=== PATIENT | female | born 1935 | race American Indian/Alaskan Native ===

== ENCOUNTER 2020-07-08 10:37 | Inpatient (IN) | payer MEDICARE ==
--- NOTE | 2020-07-08 10:53 | Event Note ---
ED Screening Note Date of service: 07/08/20 Time: 10:51 ED Screening Note: 85-year-old female presents with strokelike symptoms that began 2 days ago. This initial assessment/diagnostic orders/clinical plan/treatment(s) is/are subject to change based on patients health status, clinical progression and re- assessment by fellow clinical providers in the ED. Further treatment and workup at subsequent clinical providers discretion. Patient/guardian urged not to elope from the ED as their condition may be serious if not clinically assessed and managed. Initial orders include: Protocol ordered. Patient for main ED eval
--- NOTE | 2020-07-08 11:38 | Cat Scan Report ---
CT HEAD WITHOUT CONTRAST INDICATION / CLINICAL INFORMATION: Stroke symptoms. TECHNIQUE: Axial imaging performed from the skull apex through the skull base without the use of cont rast. Sagittal and coronal reformatted images. All CT scans at this location are performed using CT dose reduction for ALARA by means of automated exposure control. COMPARISON: None available. FINDINGS: CEREBRAL PARENCHYMA: Severe hypoattenuation is present throughout the white matter which is a nonspec ific finding but most likely related to chronic microvascular ischemic disease. Chronic appearing cor tical infarcts are identified in the left posterior watershed region and left lateral temporal lobe. 5 mm chronic lacunar infarct is identified in the left thalamus. No convincing acute parenchymal abno rmality is appreciated. HEMORRHAGE: None. EXTRA-AXIAL SPACES: Normal in size and morphology for the patient's age. VENTRICULAR SYSTEM: Normal in size and morphology for the patient's age. MIDLINE SHIFT OR HERNIATION: None. CEREBELLUM / BRAINSTEM: No significant abnormality. CALVARIUM: No significant abnormality. ORBITS: Normal as visualized. PARANASAL SINUSES / MASTOID AIR CELLS: Normal as visualized. SOFT TISSUES of HEAD: No significant abnormality. ADDITIONAL FINDINGS: None. IMPRESSION: Advanced chronic white matter changes are identified. Chronic appearing ischemic insults are identifi ed in the left posterior watershed region and left lateral temporal lobe. No definite acute parenchym al findings are appreciated although this may be limited with this degree of chronic white matter di nges. If CVA is highly suspected, further evaluation with MRI is recommended. Signer Name: Jeb Conde Jr, MD Signed: 07/08/2020 11:34 AM Workstation Name: [id number]
[2020-07-08 11:49] LABS: INR 1.02 (0.87-1.13)
[2020-07-08 11:50] LABS: Partial Thromboplastin Time 27.5 Sec. (24.2-36.6); Thrombin Time 17.1 Sec. (15.1-19.6)
[2020-07-08 11:54] LABS: Creatine Kinase MB 9.3 ng/mL (0.0-4.0)
[2020-07-08 11:57] LABS: Basophils # (Auto) 0.1 K/mm3 (0.0-0.1); Eosinophils % (Auto) 0.2 % (0.0-4.3); Hematocrit 46.1 % (30.3-42.9); Hemoglobin 15.5 gm/dl (10.1-14.3); Lymphocytes # (Auto) 1.6 K/mm3 (1.2-5.4); Lymphocytes % (Auto) 22.4 % (13.4-35.0); Mean Corpuscular HGB Conc 34 % (30-34); Mean Corpuscular Volume 88 fl (79-97); Monocytes # (Auto) 0.4 K/mm3 (0.0-0.8); Monocytes % (Auto) 6.3 % (0.0-7.3); Platelet Count 121 K/mm3 (140-440); Red Blood Count 5.24 M/mm3 (3.65-5.03); Red Cell Distribution Width 14.8 % (13.2-15.2)
[2020-07-08 11:58] LABS: Basophils % (Auto) 1.4 % (0.0-1.8)
[2020-07-08] MEDS ORDERED: ASPIRIN 325 MG TAB PO ONE (13:33)
--- NOTE | 2020-07-08 13:46 | Emergency Department Report ---
Blank Doc - Documentation Documentation: [facility] Consult Note # Demographics Consult Type: Acute Stroke Level 1 (0-4.5 hrs) Patient Location: Emergency Room First Name: Kenyatta Last Name: Herve Date of : 1935 Age: 84 Gender: Female Time of Initial Page ( Time): 07/08/2020, 13:33 Time of Return Call ( Time): 07/08/2020, 13:35 # HPI History: 84yo F presents with aphasia for at least a few days, unclear onset time exactly due to aphasia, possibly tuesday onset day. # Scores Time of exam and NIHSS ( Time): 07/08/2020, 13:38 Level of Consciousness 1a: [0] = Alert; keenly responsive LOC Questions 1b: [2] = Answers neither correctly LOC Commands 1c: [0] = Performs both tasks correctly Best Gaze 2: [0] = Normal Visual 3: [0] = No visual loss Facial Palsy 4: [1] = Minor paralysis Motor Arm Left 5a: [0] = No drift Motor Arm Right 5b: [1] = Drift Motor Leg Left 6a: [0] = No drift Motor Leg Right 6b: [1] = Drift Limb Ataxia 7: [0] = Absent Sensory 8: [0] = Normal Best Language 9: [2] = Severe aphasia Dysarthria 10: [1] = [id number]-dx-hsebnxhv dysarthria Extinction and Inattention 11: [0] = No abnormality NIHSS Total: 8 # Plan Thrombolytic/Intervention: NOT IV Thrombolytic or IA Intervention Thrombolytic Exclusion: > 4.5 hours Intraarterial Exclusion: clinically consistent with small vessel disease Blood Pressure Management: labetolol Target Blood Pressure: SBP < 220, SBP > 100 Labs: hemoglobin A1c, lipid panel Imaging: (urgency: routine admission): CT Angiogram Head and CT Angiogram Neck, MRI Brain without contrast Diagnostic Test: echo without bubble study Therapy/Evaluation: NPO until swallow evaluation, PT/OT evaluation, speech/swallow consultation Medication: aspirin 81 mg daily, start statin with goal of LDL < 70 DVT Prophylaxis: SCD Other: LDL < 70, If patient has any neurological deterioration please call me back immediately, permissive hypertension, telemetry monitoring, I have discussed my recommendations with the referring provider Disposition: admit # Logistics Telemedicine: Interactive 2 way audio and visual telecommunication technology was utilized during this visit
[2020-07-08] MEDS ORDERED: SODIUM CHLORIDE 0.9% 1000 ML 1,000 ML IV ONE (14:21)
--- NOTE | 2020-07-08 14:24 | Emergency Department Report ---
ED Neuro Deficit HPI - General Chief Complaint: Neuro Symptoms/Deficit Stated Complaint: NUMBNESS ON THE RIGHT Time Seen by Provider: 07/08/20 13:31 Source: patient, family Mode of arrival: Wheelchair Limitations: Physical Limitation - History of Present Illness Initial Comments: Patient is 84-year-old F Montene[place] female with a past medical history of hy pertension who is presenting with right-sided weakness and difficulty speaking. Because of the patient's expressive aphasia is difficult to get a accurate time of when her symptoms started. Possible that started yesterday but also could have started 3 days ago. Patient states that she was on the phone with a friend and when the symptoms started. She cannot give a good reason why she is just waiting to come to the emergency department. States she hopes that her symptoms get better. Patient states she is having weakness of the right upper extremity. She is states she feels as though she knows what she wants to say but certain words are not coming out properly. She is able to gesture that she is having a hard time given that the date as well as saying her name and what day of the week it is. Patient is trying to compensate by using other words to replace the words she actually would like to say. She denies any headache chest pain shortness of breath fevers chills cough cold or congestion. - Related Data Allergies/Adverse Reactions: Allergies Allergy/AdvReac Type Severity Reaction Status Date / Time No Known Allergies Allergy Unverified 07/08/20 10:48 ED Review of Systems ROS: Stated complaint: NUMBNESS ON THE RIGHT Other details as noted in HPI Comment: All other systems reviewed and negative ED Past Medical Hx - Past Medical History Previous Medical History?: Yes Hx Hypertension: Yes - Family History Family history: no significant - Social History Substance Use Type: None ED Neuro Physical Exam - General Limitations: Physical Limitation General appearance: alert, in no apparent distress Suspected Stroke: Yes - Head Head exam: Present: atraumatic, normocephalic - Eye Eye exam: Present: normal appearance - ENT ENT exam: Present: mucous membranes moist - Neck Neck exam: Present: normal inspection - Respiratory Respiratory exam: Present: normal lung sounds bilaterally. Absent: respiratory distress, wheezes, rales, rhonchi - Cardiovascular Cardiovascular Exam: Present: regular rate, normal rhythm, normal heart sounds. Absent: systolic murmur, diastolic murmur, rubs, gallop - GI/Abdominal GI/Abdominal exam: Present: soft, normal bowel sounds. Absent: distended, tenderness, guarding, rebound - Extremities Exam Extremities exam: Present: normal inspection - Back Exam Back exam: Present: normal inspection - Neurological Exam Neurological exam: Present: alert, oriented X3, motor sensory deficit (RUE) - NIHSS Assessment Interval: Baseline 1a. Level of Consciousness: alert/keenly responsive 1b. LOC Questions: answers no questions correctly 1c. LOC Commands: performs tasks correctly 2. Best Gaze: normal 3. Visual: no visual loss 4. Facial Palsy: minor paralysis 5b. Motor Arm Right: drift 5a. Motor Arm Left: no drift 6a. Motor Leg Left: no drift 6b. Motor Leg Right: drift 7. Limb Ataxia: absent 8. Sensory: normal 9. Best Language: severe aphasia 10. Dysarthria: mild/moderate dysarthria 11. Extinction/Inattention: no abnormality Total Score: 8 Stroke Severity: Moderate Stroke - Psychiatric Psychiatric exam: Present: normal affect, normal mood - Skin Skin exam: Present: warm, dry, intact, normal color. Absent: rash - Other Other exam information: # Scores Time of exam and NIHSS (Eastern Time): 07/08/2020, 13:38 Level of Consciousness 1a: [0] = Alert; keenly responsive LOC Questions 1b: [2] = Answers neither correctly LOC Commands 1c: [0] = Performs both tasks correctly Best Gaze 2: [0] = Normal Visual 3: [0] = No visual loss Facial Palsy 4: [1] = Minor paralysis Motor Arm Left 5a: [0] = No drift Motor Arm Right 5b: [1] = Drift Motor Leg Left 6a: [0] = No drift Motor Leg Right 6b: [1] = Drift Limb Ataxia 7: [0] = Absent Sensory 8: [0] = Normal Best Language 9: [2] = Severe aphasia Dysarthria 10: [1] = Yhja-xi-tgwndvos dysarthria Extinction and Inattention 11: [0] = No abnormality NIHSS Total: 8 ED Course - Reevaluation(s) Reevaluation #1: 07/08/20 14:25 Because of the time discrepancy of when the patient symptoms started we erred on the side of caution and had our telemetry neurology group see the patient. Please see their note. - Lab Data Result diagrams: 07/08/20 10:58 07/08/20 13:44 Lab Results 07/08/20 07/08/20 07/08/20 Range/Units 10:58 10:58 10:58 WBC 7.0 (4.5-11.0) K/mm3 RBC 5.24 H (3.65-5.03) M/mm3 Hgb 15.5 H (10.1-14.3) gm/dl Hct 46.1 H (30.3-42.9) % MCV 88 (79-97) fl MCH 30 (28-32) pg MCHC 34 (30-34) % RDW 14.8 (13.2-15.2) % Plt Count 121 L (140-440) K/mm3 Lymph % (Auto) 22.4 (13.4-35.0) % [place] % (Auto) 6.3 (0.0-7.3) % Eos % (Auto) 0.2 (0.0-4.3) % Baso % (Auto) 1.4 (0.0-1.8) % Lymph # (Auto) 1.6 (1.2-5.4) K/mm3 [place] # (Auto) 0.4 (0.0-0.8) K/mm3 Eos # (Auto) 0.0 (0.0-0.4) K/mm3 Baso # (Auto) 0.1 (0.0-0.1) K/mm3 Seg Neutrophils % 69.7 (40.0-70.0) % Seg Neutrophils # 4.9 (1.8-7.7) K/mm3 PT 13.3 (12.2-14.9) Sec. INR 1.02 (0.87-1.13) APTT 27.5 (24.2-36.6) Sec. Thrombin Time 17.1 (15.1-19.6) Sec. Sodium (137-145) mmol/L Potassium (3.6-5.0) mmol/L Chloride (98-107) mmol/L Carbon Dioxide (22-30) mmol/L Anion Gap mmol/L BUN (7-17) mg/dL Creatinine (0.6-1.2) mg/dL Estimated GFR ml/min BUN/Creatinine Ratio % Glucose (65-100) mg/dL Calcium (8.4-10.2) mg/dL Total Bilirubin (0.1-1.2) mg/dL AST (5-40) units/L ALT (7-56) units/L Alkaline Phosphatase (35-129) units/L Total Creatine Kinase 1353 H (30-135) units/L CK-MB (CK-2) 9.3 H (0.0-4.0) ng/mL CK-MB (CK-2) Rel Index 0.6 (0-4) Troponin T < 0.010 (0.00-0.029) ng/mL Total Protein (6.3-8.2) g/dL Albumin (3.9-5) g/dL Albumin/Globulin Ratio % /18/ Range/Units 13:44 WBC (4.5-11.0) K/mm3 RBC (3.65-5.03) M/mm3 Hgb (10.1-14.3) gm/dl Hct (30.3-42.9) % MCV (79-97) fl MCH (28-32) pg MCHC (30-34) % RDW (13.2-15.2) % Plt Count (140-440) K/mm3 Lymph % (Auto) (13.4-35.0) % [place] % (Auto) (0.0-7.3) % Eos % (Auto) (0.0-4.3) % Baso % (Auto) (0.0-1.8) % Lymph # (Auto) (1.2-5.4) K/mm3 [place] # (Auto) (0.0-0.8) K/mm3 Eos # (Auto) (0.0-0.4) K/mm3 Baso # (Auto) (0.0-0.1) K/mm3 Seg Neutrophils % (40.0-70.0) % Seg Neutrophils # (1.8-7.7) K/mm3 PT (12.2-14.9) Sec. INR (0.87-1.13) APTT (24.2-36.6) Sec. Thrombin Time (15.1-19.6) Sec. Sodium 139 (137-145) mmol/L Potassium 3.7 (3.6-5.0) mmol/L Chloride 102.3 (98-107) mmol/L Carbon Dioxide 22 (22-30) mmol/L Anion Gap 18 mmol/L BUN 18 H (7-17) mg/dL Creatinine 1.2 (0.6-1.2) mg/dL Estimated GFR 43 ml/min BUN/Creatinine Ratio 15 % Glucose 90 (65-100) mg/dL Calcium 9.4 (8.4-10.2) mg/dL Total Bilirubin 0.40 (0.1-1.2) mg/dL AST 49 H (5-40) units/L ALT 13 (7-56) units/L Alkaline Phosphatase 94 (35-129) units/L Total Creatine Kinase (30-135) units/L CK-MB (CK-2) (0.0-4.0) ng/mL CK-MB (CK-2) Rel Index (0-4) Troponin T (0.00-0.029) ng/mL Total Protein 7.4 (6.3-8.2) g/dL Albumin 4.2 (3.9-5) g/dL Albumin/Globulin Ratio 1.3 % - Radiology Data [facility] [address] [place] [address] Cat Scan Report Signed Patient: CLIFF MATHEW MR#: [id number] : 1935 Acct:[id number] Age/Sex: 84 / F ADM Date: 07/08/20 Loc: ED Attending Dr: Ordering Physician: LUZ LOPEZ Date of Service: 07/08/20 Procedure(s): CT head/brain wo con Accession Number(s): [id number] cc: LUZ LOPEZ CT HEAD WITHOUT CONTRAST INDICATION / CLINICAL INFORMATION: Stroke symptoms. TECHNIQUE: Axial imaging performed from the skull apex through the skull base without the use of contrast. Sagittal and coronal reformatted images. All CT scans at this location are performed using CT dose reduction for ALARA by means of automated exposure control. COMPARISON: None available. FINDINGS: CEREBRAL PARENCHYMA: Severe hypoattenuation is present throughout the white matter which is a nonspecific finding but most likely related to chronic microvascular ischemic disease. Chronic appearing cortical infarcts are identified in the left posterior watershed region and left lateral temporal lobe. 5 mm chronic lacunar infarct is identified in the left thalamus. No convincing acute parenchymal abnormality is appreciated. HEMORRHAGE: None. EXTRA-AXIAL SPACES: Normal in size and morphology for the patient's age. VENTRICULAR SYSTEM: Normal in size and morphology for the patient's age. MIDLINE SHIFT OR HERNIATION: None. CEREBELLUM / BRAINSTEM: No significant abnormality. CALVARIUM: No significant abnormality. ORBITS: Normal as visualized. PARANASAL SINUSES / MASTOID AIR CELLS: Normal as visualized. SOFT TISSUES of HEAD: No significant abnormality. ADDITIONAL FINDINGS: None. IMPRESSION: Advanced chronic white matter changes are identified. Chronic appearing ischemic insults are identified in the left posterior watershed region and left lateral temporal lobe. No definite acute parenchymal findings are appreciated although this may be limited with this degree of chronic white matter changes. If CVA is highly suspected, further evaluation with MRI is recommended. Signer Name: Neli Flores Jr, MD Signed: 07/08/2020 11:34 AM Workstation Name: [id number] Transcribed By: TTR Dictated By: NELI FLORES JR, MD Electronically Authenticated By: NELI FLORES JR, MD Signed Date/Time: 07/08/20 1134 - Medical Decision Making Patient is 84-year-old F [place] female who is presenting with expressive aphasia and right arm weakness. NIH of 8. Patient to be admitted to the hospital service for further stroke management. Critical care attestation.: If time is entered above; I have spent that time in minutes in the direct care of this critically ill patient, excluding procedure time. ED Disposition Clinical Impression: CVA (cerebral vascular accident), Aphasia Disposition: OP ADMIT IP TO THIS HOSP Is pt being admited?: Yes Does the pt Need Aspirin: No Condition: Stable Time of Disposition: 15:00
[2020-07-08 14:35] LABS: Albumin 4.2 g/dL (3.9-5); Calcium 9.4 mg/dL (8.4-10.2)
[2020-07-08] MEDS ORDERED: hydrALAZINE 20 MG/1 ML INJ ONE (17:04)
[2020-07-08] MEDS ORDERED: hydrALAZINE 20 MG/1 ML INJ IV ONE (17:06)
[2020-07-08] MEDS ORDERED: ONDANSETRON 4 MG/2 ML INJ IV PRN (22:54)
[2020-07-08] MEDS ORDERED: HYDROmorphone 1 MG/1 ML INJ IV PRN (22:54)
[2020-07-08] MEDS ORDERED: ACETAMINOPHEN 325 MG TAB PO PRN (22:54)
[2020-07-08] MEDS ORDERED: oxyCODONE /ACETAMINOPHEN 5-325MG TAB PO PRN (22:54)
[2020-07-08] MEDS ORDERED: SODIUM CHLORIDE 0.9% 1000 ML 1,000 ML IV SCH (23:00)
[2020-07-08] MEDS: carvediloL 12.5 MG TAB PO SCH (23:16)
[2020-07-09 06:34] LABS: Basophils % (Auto) 0.5 % (0.0-1.8); Eosinophils # (Auto) 0.1 K/mm3 (0.0-0.4); Eosinophils % (Auto) 1.4 % (0.0-4.3); Hematocrit 42.6 % (30.3-42.9); Hemoglobin 14.2 gm/dl (10.1-14.3); Lymphocytes % (Auto) 31.3 % (13.4-35.0); Mean Corpuscular HGB Conc 33 % (30-34); Mean Corpuscular Volume 88 fl (79-97); Monocytes # (Auto) 0.5 K/mm3 (0.0-0.8); Monocytes % (Auto) 8.1 % (0.0-7.3); Platelet Count 110 K/mm3 (140-440); Red Blood Count 4.84 M/mm3 (3.65-5.03); Red Cell Distribution Width 14.7 % (13.2-15.2)
[2020-07-09 06:43] LABS: Albumin 3.7 g/dL (3.9-5); Calcium 8.7 mg/dL (8.4-10.2); Chol/HDL Ratio 3.06 %
--- NOTE | 2020-07-09 07:34 | History and Physical Report ---
History of Present Illness Date of examination: 07/08/20 Date of admission: 07/08/20 15:02 Chief complaint: Slurred speech and right upper extremity weakness for 2 to 3 days History of present illness: 84-year-old female with past medical history of hypertension comes in for difficulty talking and right upper extremity weakness. Patient unable to tell the exact timeline. Patient states her difficulty talking is improved. Right upper extremity weakness persists.. Patient says the right lower extremity strength is normal. And patient is able to walk. No syncope. No seizures. No past cerebrovascular accidents. No TIAs in the past. No chest pain. Patient has a history of hypertension and hyperlipidemia and asthma. No fever or chills. No recent exposure to coronavirus. Patient states the symptoms were started 48 to 72 hours before. - Past Medical History Previous Medical History?: Yes --Hypertension: Yes --past surgical history N/A - Family History Family history: no significant - Social History Substance Use Type: None Review of Systems ROS: Constitutional no weight loss or weight gain no fever or chills HEENT no sore throat no post nasal drip no diplopia Neck no neck stiffness no lymph gland enlargement Chest and lungs no shortness of breath cough or wheezing CVS no chest pain no diaphoresis no palpitations GI no nausea no vomiting no diarrhea Genitourinary system no dysuria no flank pain Musculoskeletal system no muscle pains no joint pains [employer] dysarthria and right upper extremity weakness Skin no rash no itching Psychiatric no depression no homicidal or suicidal tendencies Hematologic no lymphedema or bruising Endocrine no polydipsia no polyuria no cold intolerance no heat intolerance Medications and Allergies Allergies Allergy/AdvReac Type Severity Reaction Status Date / Time No Known Allergies Allergy Unverified 07/08/20 10:48 Home Medications Medication Instructions Recorded Confirmed Last Taken Type AtorvaSTATin [Lipitor] 20 mg PO QHS 07/08/20 07/08/20 Unknown History Fluticasone Propionate [Flovent 50 mcg IH QDAY 07/08/20 07/08/20 Unknown History Diskus] Lisinopril/Hydrochlorothiazide 1 tab PO QDAY 07/08/20 07/08/20 Unknown History [Zestoretic 20-25 mg] carvediloL [Coreg] 12.5 mg PO BID 07/08/20 07/08/20 Unknown History Active Meds: Active Medications Acetaminophen (Acetaminophen 325 Mg Tab) 650 mg PO Q4H PRN PRN Reason: Pain MILD(1-3)/Fever >100.5/WHITESIDE Arformoterol Tartrate (Arformoterol 15 Mcg/2 Ml Nebu) 15 mcg IH Q12HRT [facility] Aspirin (Aspirin 325 Mg Tab) 325 mg PO QDAY [facility] Atorvastatin Calcium (Atorvastatin 40 Mg Tab) 40 mg PO QHS [facility] Budesonide (Budesonide 0.5 Mg/2 Ml Nebu) 0.5 mg IH Q12HRT [facility] Carvedilol (Carvedilol 12.5 Mg Tab) 12.5 mg PO BID [facility] Last Admin: 07/08/20 23:16 Dose: 12.5 mg Documented by: Famotidine (Famotidine 20 Mg/2 Ml Inj) 20 mg IV BID [facility] Hydrochlorothiazide (Hydrochlorothiazide 25 Mg Tab) 25 mg PO QDAY [facility] Hydromorphone HCl (Hydromorphone 1 Mg/1 Ml Inj) 0.5 mg IV Q3H PRN PRN Reason: Pain , Severe (7-10) Sodium Chloride (Nacl 0.9% 1000 Ml) 1,000 mls @ 100 mls/hr IV DIRECT [facility] Stop: 07/09/20 11:00 Last Admin: 07/08/20 23:17 Dose: 100 mls/hr Documented by: Lisinopril (Lisinopril 20 Mg Tab) 20 mg PO QDAY [facility] Ondansetron HCl (Ondansetron 4 Mg/2 Ml Inj) 4 mg IV Q8H PRN PRN Reason: Nausea And Vomiting Oxycodone/Acetaminophen (Oxycodone /Acetaminophen 5-325mg Tab) 1 tab PO Q6H PRN PRN Reason: Pain, Moderate (4-6) Sodium Chloride (Sodium Chloride 0.9% 10 Ml Flush Syringe) 10 ml IV BID [facility] Last Admin: 07/08/20 23:17 Dose: 10 ml Documented by: Sodium Chloride (Sodium Chloride 0.9% 10 Ml Flush Syringe) 10 ml IV PRN PRN PRN Reason: LINE FLUSH Exam - Constitutional Vitals: Temp Pulse Resp BP Pulse Ox 97.8 F 73 18 163/85 95 07/09/20 04:33 07/09/20 04:33 07/09/20 04:33 07/09/20 04:33 07/09/20 04:33 General appearance: Present: no acute distress, well-nourished - EENT Eyes: Present: PERRL ENT: hearing intact, clear oral mucosa - Neck Neck: Present: supple, normal ROM - Respiratory Respiratory effort: normal Respiratory: bilateral: CTA - Cardiovascular Heart rate: 78 Rhythm: regular Heart Sounds: Present: S1 & S2. Absent: rub, click - Extremities Extremities: no ischemia, pulses intact, pulses symmetrical, No edema Peripheral Pulses: within normal limits - Abdominal General gastrointestinal: Present: soft, non-tender, non-distended, normal bowel sounds Female genitourinary: Present: normal - Integumentary Integumentary: Present: clear, warm, dry - Musculoskeletal Musculoskeletal: right sided weakness - Psychiatric Psychiatric: appropriate mood/affect, intact judgment & insight - Neurologic Neurologic: CNII-XII intact, focal deficits (Right upper extremity weakness), moves all extremities, other (Dysarthria) HEART Score - HEART Score History: Slightly suspicious Age: > 65 Risk factors: 1-2 risk factors Troponin: Troponin T < 0.010 ng/mL (0.00-0.029) 07/08/20 10:58 Troponin: < normal limit - Critical Actions Critical Actions: 0-3 pts:0.9-1.7%risk of adverse cardiac event.Candidate for discharge Results - Labs CBC & Chem 7: 07/09/20 05:19 07/09/20 05:19 Labs: Laboratory Last Values WBC 6.5 K/mm3 (4.5-11.0) 07/09/20 05:19 RBC 4.84 M/mm3 (3.65-5.03) 07/09/20 05:19 Hgb 14.2 gm/dl (10.1-14.3) 07/09/20 05:19 Hct 42.6 % (30.3-42.9) 07/09/20 05:19 MCV 88 fl (79-97) 07/09/20 05:19 MCH 29 pg (28-32) 07/09/20 05:19 MCHC 33 % (30-34) 07/09/20 05:19 RDW 14.7 % (13.2-15.2) 07/09/20 05:19 Plt Count 110 K/mm3 (140-440) L 07/09/20 05:19 Lymph % (Auto) 31.3 % (13.4-35.0) 07/09/20 05:19 Dickenson % (Auto) 8.1 % (0.0-7.3) H 07/09/20 05:19 Eos % (Auto) 1.4 % (0.0-4.3) 07/09/20 05:19 Baso % (Auto) 0.5 % (0.0-1.8) 07/09/20 05:19 Lymph # (Auto) 2.0 K/mm3 (1.2-5.4) 07/09/20 05:19 Dickenson # (Auto) 0.5 K/mm3 (0.0-0.8) 07/09/20 05:19 Eos # (Auto) 0.1 K/mm3 (0.0-0.4) 07/09/20 05:19 Baso # (Auto) 0.0 K/mm3 (0.0-0.1) 07/09/20 05:19 Seg Neutrophils % 58.7 % (40.0-70.0) 07/09/20 05:19 Seg Neutrophils # 3.8 K/mm3 (1.8-7.7) 07/09/20 05:19 PT 13.3 Sec. (12.2-14.9) 07/08/20 10:58 INR 1.02 (0.87-1.13) 07/08/20 10:58 APTT 27.5 Sec. (24.2-36.6) 07/08/20 10:58 Thrombin Time 17.1 Sec. (15.1-19.6) 07/08/20 10:58 Sodium 141 mmol/L (137-145) 07/09/20 05:19 Potassium 3.8 mmol/L (3.6-5.0) 07/09/20 05:19 Chloride 107.6 mmol/L (98-107) H 07/09/20 05:19 Carbon Dioxide 25 mmol/L (22-30) 07/09/20 05:19 Anion Gap 12 mmol/L 07/09/20 05:19 BUN 18 mg/dL (7-17) H 07/09/20 05:19 Creatinine 1.2 mg/dL (0.6-1.2) 07/09/20 05:19 Estimated GFR 52 ml/min 07/09/20 05:19 BUN/Creatinine Ratio 15 % 07/09/20 05:19 Glucose 101 mg/dL (65-100) H 07/09/20 05:19 Hemoglobin A1c 5.7 % (4-6) 07/09/20 05:19 Calcium 8.7 mg/dL (8.4-10.2) 07/09/20 05:19 Total Bilirubin 0.40 mg/dL (0.1-1.2) 07/09/20 05:19 AST 36 units/L (5-40) 07/09/20 05:19 ALT 10 units/L (7-56) 07/09/20 05:19 Alkaline Phosphatase 79 units/L (35-129) 07/09/20 05:19 Total Creatine Kinase 1353 units/L (30-135) H 07/08/20 10:58 CK-MB (CK-2) 9.3 ng/mL (0.0-4.0) H 07/08/20 10:58 CK-MB (CK-2) Rel Index 0.6 (0-4) 07/08/20 10:58 Troponin T < 0.010 ng/mL (0.00-0.029) 07/08/20 10:58 Total Protein 6.2 g/dL (6.3-8.2) L 07/09/20 05:19 Albumin 3.7 g/dL (3.9-5) L 07/09/20 05:19 Albumin/Globulin Ratio 1.5 % 07/09/20 05:19 Triglycerides 64 mg/dL (2-149) 07/09/20 05:19 Cholesterol 178 mg/dL (50-199) 07/09/20 05:19 LDL Cholesterol Direct 107 mg/dL (50-130) 07/09/20 05:19 HDL Cholesterol 58 mg/dL (40-59) 07/09/20 05:19 Cholesterol/HDL Ratio 3.06 % 07/09/20 05:19 - Imaging and Cardiology EKG: report reviewed (Sinus rhythm no acute ST-T wave changes) CT Scan - head: report reviewed Imaging and Cardiology: Head CT Advanced chronic white matter changes are identified Chronic appearing ischemic insults are identified in the left posterior wate rshed region and left lateral temporal lobe No definite acute parenchymal findings are appreciated although this may be limited with his degree of chronic white matter changes. If CVA is highly suspected further evaluation with MRI is recommended. Shin/IV: Voiding Method Toilet Assessment and Plan Advance Directives: Yes (Full code) VTE prophylaxis?: Chemical Plan of care discussed with patient/family: Yes - Patient Problems (1) CVA (cerebral vascular accident) Current Visit: Yes Status: Acute Qualifiers: Laterality of affected vessel: left Plan to address problem: CVA work-up MRI brain and carotid duplex scan and echocardiogram requested Neuro consult requested PT/OT requested (2) Hypertension Current Visit: Yes Status: Chronic Qualifiers: Hypertension type: essential hypertension Qualified Code(s): I10 - Essential (primary) hypertension Plan to address problem: Continue antihypertensives and adjust medications as necessary (3) Hyperlipidemia Current Visit: Yes Status: Chronic Qualifiers: Hyperlipidemia type: mixed hyperlipidemia Qualified Code(s): E78.2 - Mixed hyperlipidemia Plan to address problem: Patient initiated on high intensity statins-Lipitor 40 mg once a day (4) Asthma Current Visit: Yes Status: Inactive Plan to address problem: Albuterol as needed (5) Morbid obesity Current Visit: Yes Status: Chronic Plan to address problem: Needs exercise and follow-up with bariatric surgery (6) DVT prophylaxis Current Visit: Yes Status: Acute Plan to address problem: On heparin and GI prophylaxis (7) Advance care planning Current Visit: Yes Status: Acute Plan to address problem: Discussed advanced care planning Patient is full code
--- NOTE | 2020-07-09 09:52 | Magnetic Resonance Report ---
MR brain wo con INDICATION / CLINICAL INFORMATION: Stroke. TECHNIQUE: Multiplanar, multisequence MR images of the brain were obtained. COMPARISON: 07/08/2020 CT head FINDINGS: INTRACRANIAL: There is restricted diffusion seen within the left frontal, parietal, and left lateral temporal lobe. No hemorrhage. No hemorrhage. Ventricular caliber is normal. No extra-axial collection . No mass. No herniation. Major intracranial vascular flow voids are preserved. Periventricular and centrum semiovale T2 white matter hyperintensities most consistent with sequela of chronic microvascu lar disease. ORBITS: No significant abnormality of visualized orbits. SINUSES / MASTOIDS: No significant abnormality of visualized sinuses and mastoid air cells. ADDITIONAL FINDINGS: None. IMPRESSION: 1. Acute infarction in the left middle cerebral artery territory. Signer Name: Christian Marcus MD Signed: 07/09/2020 9:48 AM Workstation Name: [id number]
[2020-07-09] MEDS ORDERED: NON-FORMULARY EACH (Fluticasone Propionate [Flovent Diskus] 50 MCG Blst.W.Dev) IH SCH (10:00)
[2020-07-09] MEDS: ARFORMOTEROL 15 MCG/2 ML NEBU IH SCH ×2 (10:10→20:43)
[2020-07-09] MEDS: BUDESONIDE 0.5 MG/2 ML NEBU IH SCH ×2 (10:10→20:43)
--- NOTE | 2020-07-09 10:50 | Electrocardiograph Report ---
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
[2020-07-09] MEDS: LISINOPRIL 20 MG TAB PO SCH (11:16)
[2020-07-09] MEDS: ASPIRIN 325 MG TAB PO SCH (11:16)
[2020-07-09] MEDS: carvediloL 12.5 MG TAB PO SCH ×2 (11:16→21:30)
[2020-07-09] MEDS: hydroCHLOROthiazide 25 MG TAB PO SCH (11:16)
[2020-07-09] MEDS: FAMOTIDINE 20 MG/2 ML INJ IV SCH ×2 (11:16→21:31)
--- NOTE | 2020-07-09 11:49 | Vascular Lab Report ---
DUPLEX DOPPLER ULTRASOUND CAROTID, BILATERAL INDICATION / CLINICAL INFORMATION: stroke. COMPARISON: None available. FINDINGS: Tortuous ICAs bilateral. RIGHT CAROTID: Mild atherosclerotic disease is present within the distal CCA and bulb, extending into proximal ICA. - PLAQUE ESTIMATE (%): < 50% - CCA velocity: 83 cm/sec. - ICA peak systolic velocity: 98 cm/sec. - ICA/CCA PSV Ratio: 1.2 Right Vertebral Artery: Antegrade flow. LEFT CAROTID: Moderate atherosclerotic disease is present within the bulb. Moderate to severe disease is present within the ICA. - PLAQUE ESTIMATE (%): > 70% - CCA velocity: 61 cm/sec. - ICA peak systolic velocity: 560 cm/sec. - ICA/CCA PSV Ratio: 9.2 Left Vertebral Artery: Antegrade flow. IMPRESSION: 1. Right Internal Carotid Artery: Less than 50% diameter stenosis. 2. Left Internal Carotid Artery: >70% diameter stenosis but less than total occlusion. Results were communicated to Kassy CHO) by the technologist at 10:48. Velocity criteria are extrapolated from diameter data as defined by the Society of Radiologists [facility] Consensus Conference, Radiology 2003; 229;340-346. NO STENOSIS (NORMAL) - Plaque = none; ICA PSV < 125 cm/sec; ICA/CCA PSV Ratio < 2.0 <50% STENOSIS - Plaque < 50%; ICA PSV < 125 cm/sec; ICA/CCA PSV Ratio < 2.0 50-69% STENOSIS - Plaque > 50%; ICA PSV = 125-230 cm/sec; ICA/CCA PSV Ratio = 2.0-4.0 >70% BUT <100% STENOSIS - Plaque > 50%; ICA PSV > 230 cm/sec; ICA/CCA PSV Ratio > 4.0 NEAR OCCLUSION - Plaque = visible lumen; ICA PSV = high/low/none; ICA/CCA PSV Ratio = variable TOTAL OCCLUSION - Plaque = no lumen; ICA PSV = none; ICA/CCA PSV Ratio = N/A Scribed by: Mariluz De Santiago RDMS, SHEYLAT Scribed: 07/09/2020 10:40 AM Signer Name: Tucker Roque MD Signed: 07/09/2020 11:45 AM Workstation Name: [id number]
--- NOTE | 2020-07-09 12:35 | Consultation ---
History of Present Illness Consult date: 07/09/20 Reason for Consult: CVA Chief complaint: History of present illness: 84-year-old female with past medical history of hypertension comes in for difficulty talking and right upper extremity weakness. Patient unable to tell the exact timeline. Patient states her difficulty talking is improved. Right upper extremity weakness persists.. Patient says the right lower extremity strength is normal. And patient is able to walk. No syncope. No seizures. No past cerebrovascular accidents. No TIAs in the past. No chest pain. Patient has a history of hypertension and hyperlipidemia and asthma. No fever or chills. No recent exposure to coronavirus. Patient states the symptoms were started 48 to 72 hours before. > ? per patient no improvement . Medications and Allergies Allergies Allergy/AdvReac Type Severity Reaction Status Date / Time No Known Allergies Allergy Unverified 07/08/20 10:48 Home Medications Medication Instructions Recorded Confirmed Last Taken Type AtorvaSTATin [Lipitor] 20 mg PO QHS 07/08/20 07/08/20 Unknown History Fluticasone Propionate [Flovent 50 mcg IH QDAY 07/08/20 07/08/20 Unknown History Diskus] Lisinopril/Hydrochlorothiazide 1 tab PO QDAY 07/08/20 07/08/20 Unknown History [Zestoretic 20-25 mg] carvediloL [Coreg] 12.5 mg PO BID 07/08/20 07/08/20 Unknown History Active Meds: Active Medications Acetaminophen (Acetaminophen 325 Mg Tab) 650 mg PO Q4H PRN PRN Reason: Pain MILD(1-3)/Fever >100.5/WHITESIDE Arformoterol Tartrate (Arformoterol 15 Mcg/2 Ml Nebu) 15 mcg IH Q12HRT [facility] Last Admin: 07/09/20 10:10 Dose: Not Given Documented by: Aspirin (Aspirin 325 Mg Tab) 325 mg PO QDAY [facility] Last Admin: 07/09/20 11:16 Dose: 325 mg Documented by: Atorvastatin Calcium (Atorvastatin 40 Mg Tab) 40 mg PO QHS [facility] Budesonide (Budesonide 0.5 Mg/2 Ml Nebu) 0.5 mg IH Q12HRT [facility] Last Admin: 07/09/20 10:10 Dose: Not Given Documented by: Carvedilol (Carvedilol 12.5 Mg Tab) 12.5 mg PO BID [facility] Last Admin: 07/09/20 11:16 Dose: 12.5 mg Documented by: Famotidine (Famotidine 20 Mg/2 Ml Inj) 20 mg IV BID [facility] Last Admin: 07/09/20 11:16 Dose: 20 mg Documented by: Hydrochlorothiazide (Hydrochlorothiazide 25 Mg Tab) 25 mg PO QDAY [facility] Last Admin: 07/09/20 11:16 Dose: 25 mg Documented by: Hydromorphone HCl (Hydromorphone 1 Mg/1 Ml Inj) 0.5 mg IV Q3H PRN PRN Reason: Pain , Severe (7-10) Lisinopril (Lisinopril 20 Mg Tab) 20 mg PO QDAY [facility] Last Admin: 07/09/20 11:16 Dose: 20 mg Documented by: Ondansetron HCl (Ondansetron 4 Mg/2 Ml Inj) 4 mg IV Q8H PRN PRN Reason: Nausea And Vomiting Oxycodone/Acetaminophen (Oxycodone /Acetaminophen 5-325mg Tab) 1 tab PO Q6H PRN PRN Reason: Pain, Moderate (4-6) Sodium Chloride (Sodium Chloride 0.9% 10 Ml Flush Syringe) 10 ml IV BID [facility] Last Admin: 07/09/20 11:21 Dose: 10 ml Documented by: Sodium Chloride (Sodium Chloride 0.9% 10 Ml Flush Syringe) 10 ml IV PRN PRN PRN Reason: LINE FLUSH Physical Examination - Vital Signs Vital Signs: Vital Signs Temp Pulse Resp BP Pulse Ox 98.7 F 92 H 20 158/105 95 07/08/20 10:48 07/08/20 10:48 07/08/20 10:48 07/08/20 10:48 07/08/20 10:48 - Physical Exam Narrative exam: There is dysrthria , there is weakness in the right upper extremity 3+/5. Results - Laboratory Findings CBC and BMP: 07/09/20 05:19 07/09/20 05:19 Abnormal Lab Findings: Abnormal Labs 07/08/20 07/08/20 07/08/20 10:58 10:58 13:44 RBC 5.24 H Hgb 15.5 H Hct 46.1 H Plt Count 121 L [place] % (Auto) Chloride BUN 18 H Glucose AST 49 H Total Creatine Kinase 1353 H CK-MB (CK-2) 9.3 H Total Protein Albumin 07/09/20 07/09/20 05:19 05:19 RBC Hgb Hct Plt Count 110 L [place] % (Auto) 8.1 H Chloride 107.6 H BUN 18 H Glucose 101 H AST Total Creatine Kinase CK-MB (CK-2) Total Protein 6.2 L Albumin 3.7 L Assessment and Plan 1. CVA Acute CVA ( Left MCA Territory ). Reviewed MRI Brain - abnormal , continues to have Expressive Apahsia - Mild . 2. Speech / OT and PT . 3.Discussed Risk Factors for CVA 4. Needs a out patient neurology follow up . 5. Awaits CTA and MRA Brain results . Dr. Kerri RAMIREZ
--- NOTE | 2020-07-09 12:37 | Cat Scan Report ---
CTA NECK WITH CONTRAST 07/09/2020 INDICATION / CLINICAL INFORMATION: MAIN. Left MCA infarct. COMPARISON: None. TECHNIQUE: Routine CTA of the neck is performed. 3-D/MIP reformats were postprocessed. Percentage st enosis is determined by direct quantitative measurements of diseased internal carotid artery diameter compared with normal distal internal carotid artery reference segments or by criteria similar to ADY CET where applicable. All CT scans at this location are performed using CT dose reduction for ALARA b y means of automated exposure control. CONTRAST: 100 ml of Omnipaque 350 FINDINGS: Carotid bifurcations: On the left, medial deviation of the proximal ICA is present associated with hi gh-grade stenosis, in the range of 80-90% just above the bifurcation. On the right, there is medial d eviation of the proximal ICA, which is tortuous proximally. Approximately 50% narrowing is present. Carotid arteries: Proximal ICA tortuosity is noted as above. Tortuosity in the left common carotid ar erica is also present. Cervical vertebral arteries: There is no evidence of flow enhancement in the right cervical vertebral artery below the C2 level, which may be developmental variant or evidence of prior occlusion. Aortic arch: No significant abnormality. None. IMPRESSION: 1. 80-90% stenosis near the origin of the left ICA. Signer Name: Nolan Oneal MD Signed: 07/09/2020 12:32 PM Workstation Name: [id number]
--- NOTE | 2020-07-09 12:54 | Cat Scan Report ---
CTA HEAD WITH CONTRAST 07/09/2020 HISTORY: Left MCA infarct. COMPARISON: None. TECHNIQUE: All CT scans at this location are performed using CT dose reduction for ALARA by means of automated exposure control.. 3-D/MIP reformats postprocessed. Percentage stenosis is determined by d irect quantitative measurements of diseased internal carotid artery diameter compared with normal dis caden internal carotid artery reference segments or by criteria similar to NASCET where applicable. CONTRAST: 100 ml of Omnipaque 350 FINDINGS: CTA HEAD: Intracranial vertebral arteries: The distal vertebral arteries are hypoplastic. The right appears to end at the level of the posterior inferior cerebellar artery. Left distal vertebral artery appears to be stenotic or partially occluded at the vertebrobasilar junction. Basilar artery: Basilar artery is discontinuous, with areas of stenosis or occlusion in the mid basil ar artery noted. Posterior cerebral arteries: Atherosclerotic irregularity is seen along the course of the basilar art eries bilaterally. Intracranial internal carotid arteries: Atherosclerotic irregularity is seen along the course of the distal internal carotid arteries. There is possible cavernous sinus level aneurysm arising from the m edial aspect of the right distal ICA, in the range of 4 to 5 mm. Anterior cerebral arteries: Unremarkable. Middle cerebral arteries: The left MCA shows prominent atherosclerotic irregularity at the trifurcati on. Moderate atherosclerotic irregularity is seen along the right MCA and its branches. Dural venous sinuses:Not optimally opacified. No significant abnormality. Additional findings: None. Signer Name: Nolan Oneal MD Signed: 07/09/2020 12:49 PM Workstation Name: [id number]
--- NOTE | 2020-07-09 14:52 | Consultation ---
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 She is unsure of the exact timeframe however this began several days ago while she was at home and she stayed at home hoping that her symptoms would improve however when they did not she decided to present to the emergency department. She denies any previous history of numbness or weakness in her upper or lower extremities. She denies any history of amaurosis fugax or other signs or symptoms of TIAs. Since her admission she has not had any significant improvement in her symptoms. She was on a statin prior to presentation however she was not on antiplatelet therapy. Her work-up revealed an acute embolic event involving the left MCA territory. She also had a carotid duplex which demonstrated significant left internal carotid artery stenosis which was confirmed by CTA of the neck. She has no additional complaints at this time. Although the benefit of early intervention is lost after 14 days I believe the patient has such a large area of brain that was affected, as seen on the MRI, that she has an increased risk of hemorrhagic conversion if she were to undergo intervention at this time. I will recommend that she follow-up upon discharge and be treated after 6 to 8 weeks. I also recommend adding Plavix to her medications and maintaining her on both aspirin and Plavix as well as the statin in the interim. Past History Past Medical History: hypertension, hyperlipidemia, stroke Medications and Allergies Allergies Allergy/AdvReac Type Severity Reaction Status Date / Time No Known Allergies Allergy Unverified 07/08/20 10:48 Home Medications Medication Instructions Recorded Confirmed Last Taken Type AtorvaSTATin [Lipitor] 20 mg PO QHS 07/08/20 07/08/20 Unknown History Fluticasone Propionate [Flovent 50 mcg IH QDAY 07/08/20 07/08/20 Unknown History Diskus] Lisinopril/Hydrochlorothiazide 1 tab PO QDAY 07/08/20 07/08/20 Unknown History [Zestoretic 20-25 mg] carvediloL [Coreg] 12.5 mg PO BID 07/08/20 07/08/20 Unknown History Active Meds: Active Medications Acetaminophen (Acetaminophen 325 Mg Tab) 650 mg PO Q4H PRN PRN Reason: Pain MILD(1-3)/Fever >100.5/WHITESIDE Arformoterol Tartrate (Arformoterol 15 Mcg/2 Ml Nebu) 15 mcg IH Q12HRT COUNT INCLUDES THE [facility] Last Admin: 07/09/20 10:10 Dose: Not Given Documented by: Aspirin (Aspirin 325 Mg Tab) 325 mg PO QDAY COUNT INCLUDES THE [facility] Last Admin: 07/09/20 11:16 Dose: 325 mg Documented by: Atorvastatin Calcium (Atorvastatin 40 Mg Tab) 40 mg PO QHS COUNT INCLUDES THE [facility] Budesonide (Budesonide 0.5 Mg/2 Ml Nebu) 0.5 mg IH Q12HRT COUNT INCLUDES THE [facility] Last Admin: 07/09/20 10:10 Dose: Not Given Documented by: Carvedilol (Carvedilol 12.5 Mg Tab) 12.5 mg PO BID COUNT INCLUDES THE [facility] Last Admin: 07/09/20 11:16 Dose: 12.5 mg Documented by: Famotidine (Famotidine 20 Mg/2 Ml Inj) 20 mg IV BID COUNT INCLUDES THE [facility] Last Admin: 07/09/20 11:16 Dose: 20 mg Documented by: Hydrochlorothiazide (Hydrochlorothiazide 25 Mg Tab) 25 mg PO QDAY COUNT INCLUDES THE [facility] Last Admin: 07/09/20 11:16 Dose: 25 mg Documented by: Hydromorphone HCl (Hydromorphone 1 Mg/1 Ml Inj) 0.5 mg IV Q3H PRN PRN Reason: Pain , Severe (7-10) Lisinopril (Lisinopril 20 Mg Tab) 20 mg PO QDAY COUNT INCLUDES THE [facility] Last Admin: 07/09/20 11:16 Dose: 20 mg Documented by: Ondansetron HCl (Ondansetron 4 Mg/2 Ml Inj) 4 mg IV Q8H PRN PRN Reason: Nausea And Vomiting Oxycodone/Acetaminophen (Oxycodone /Acetaminophen 5-325mg Tab) 1 tab PO Q6H PRN PRN Reason: Pain, Moderate (4-6) Sodium Chloride (Sodium Chloride 0.9% 10 Ml Flush Syringe) 10 ml IV BID COUNT INCLUDES THE [facility] Last Admin: 07/09/20 11:21 Dose: 10 ml Documented by: Sodium Chloride (Sodium Chloride 0.9% 10 Ml Flush Syringe) 10 ml IV PRN PRN PRN Reason: LINE FLUSH Review of Systems All systems: negative Exam - Constitutional Vitals: Temp Pulse Resp BP Pulse Ox 98.6 F 69 20 184/99 95 07/09/20 12:39 07/09/20 12:39 07/09/20 12:39 07/09/20 12:39 07/09/20 04:33 General appearance: Present: no acute distress, other (Occasional word searching) - Neck Neck: Present: supple - Respiratory Respiratory effort: normal - Cardiovascular Rhythm: regular - Extremities Extremities: no ischemia, normal temperature - Abdominal General gastrointestinal: Present: soft, non-tender Female genitourinary: Present: deferred - Rectal Rectal Exam: deferred - Integumentary Integumentary: Present: clear - Musculoskeletal Musculoskeletal: right sided weakness (Right upper extremity is paretic) - Psychiatric Psychiatric: appropriate mood/affect, cooperative Results - Labs CBC & Chem 7: 07/09/20 05:19 07/09/20 05:19 Labs: Abnormal lab results 07/08/20 07/09/20 07/09/20 Range/Units 13:44 05:19 05:19 Plt Count 110 L (140-440) K/mm3 [place] % (Auto) 8.1 H (0.0-7.3) % Chloride 107.6 H (98-107) mmol/L BUN 18 H 18 H (7-17) mg/dL Glucose 101 H (65-100) mg/dL AST 49 H (5-40) units/L Total Protein 6.2 L (6.3-8.2) g/dL Albumin 3.7 L (3.9-5) g/dL - Imaging and Cardiology CT Scan - head: image reviewed (Reviewed images from CTA of the neck as well as carotid duplex) MRI - head: image reviewed Assessment and Plan The patient is an 84-year-old female who presented with a Broca's aphasia as well as right upper extremity hemiparesis. The patient has not improved since her admission. The carotid duplex demonstrates significant left internal carotid stenosis with a peak systolic velocity of 560 cm/s and an internal carotid to carotid artery ratio of greater than 9. This will suggest greater than 80% stenosis by the ultrasound findings. The patient CTA of her neck demo nstrates a bovine arch with a tortuous left common carotid artery as well as bilateral internal carotid arteries that are retropharyngeal. Her left internal carotid artery stenosis, which is approximately 90%, occurs approximately 3 to 4 cm distal to the carotid bifurcation and is near the oral pharynx. These factors make lesion near impossible to access surgically and put her at significant risk of neurovascular injury for an open surgical approach. The bovine arch as well as the tortuosity of her common carotid artery provide difficult anatomy for traditional carotid artery stenting. The patient would be a better candidate for the TCAR (Transcarotid Artery Revascularization) Procedure for management of her lesion. This would be the safest way to access the lesion and place her at the lowest risk of surgical morbidity. Dr. Devaughn Wyatt MD, at [facility], performs this procedure regularly and would be the vascular surgeon that I would recommend referring the patient to. Given the large
--- NOTE | 2020-07-09 16:36 | Progress Note ---
Assessment and Plan Assessment and plan: (1) CVA (cerebral vascular accident) Current Visit: Yes Status: Acute Qualifiers: Laterality of affected vessel: left Plan to address problem: Continue aspirin 325 mg daily Echocardiogram MRI brain-acute stroke Neurology evaluation appreciated Ultrasound carotid showed more than 70% stenosis of the left ICA. Vascular surgery has been consulted (2) Hypertension Current Visit: Yes Status: Chronic Qualifiers: Hypertension type: essential hypertension Qualified Code(s): I10 - Essential (primary) hypertension Plan to address problem: Continue antihypertensives and adjust medications as necessary (3) Hyperlipidemia Current Visit: Yes Status: Chronic Qualifiers: Hyperlipidemia type: mixed hyperlipidemia Qualified Code(s): E78.2 - Mixed hyperlipidemia Plan to address problem: Patient initiated on high intensity statins-Lipitor 40 mg once a day (4) Asthma Current Visit: Yes Status: Inactive Plan to address problem: Albuterol as needed (5) Morbid obesity Current Visit: Yes Status: Chronic Plan to address problem: Needs exercise and follow-up with bariatric surgery (6) DVT prophylaxis Current Visit: Yes Status: Acute Plan to address problem: On heparin and GI prophylaxis (7) Advance care planning Current Visit: Yes Status: Acute Plan to address problem: Discussed advanced care planning Patient is full code History Interval history: 84-year-old female with past medical history of hypertension comes in for difficulty talking and right upper extremity weakness. Patient unable to tell the exact timeline. Patient states her difficulty talking is improved. Right upper extremity weakness persists.. Patient says the right lower extremity strength is normal. And patient is able to walk. No syncope. No seizures. No past cerebrovascular accidents. No TIAs in the past. No chest pain. Patient has a history of hypertension and hyperlipidemia and asthma. No fever or chills. No recent exposure to coronavirus. Patient states the symptoms were started 48 to 72 hours before. Hospital course 07/09. MRI brain shows acute stroke involving the left middle cerebral artery region. Neurology consulted. Patient is on aspirin and statins. 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 Vascular surgery is been consulted. She complains of right-sided arm weakness. Has been seen by physical therapy who recommends home discharge when stable. Hospitalist Physical - Physical exam Narrative exam: VITAL SIGNS: Reviewed. GENERAL: Awake HEAD: No signs of head trauma. EYES: Pupils are equal. Extraocular motions intact. MOUTH: Oropharynx is normal. NECK: No adenopathy, no JVD. CHEST: Chest with diminished breath sounds bilaterally. No wheezes, rales, or rhonchi. CARDIAC: normal S1 and S2, without murmurs, gallops, or rubs. ABDOMEN: Soft, non tender and non distended. No rebound or guarding, and no masses palpated. Bowel Sounds normal. MUSCULOSKELETAL: No edema NEUROLOGIC EXAM: Alert and oriented x3. RUE-4/5 SKIN: No obvious lesions - Constitutional Vitals: Temp Pulse Resp BP Pulse Ox 98.6 F 69 20 184/99 95 07/09/20 12:39 07/09/20 12:39 07/09/20 12:39 07/09/20 12:39 07/09/20 04:33 HEART Score - HEART Score Age: > 65 Risk factors: 1-2 risk factors Troponin: Troponin T < 0.010 ng/mL (0.00-0.029) 07/08/20 10:58 Troponin: < normal limit - Critical Actions Critical Actions: 0-3 pts:0.9-1.7%risk of adverse cardiac event.Candidate for discharge Results - Labs CBC & Chem 7: 07/09/20 05:19 07/09/20 05:19 Labs: Laboratory Last Values WBC 6.5 K/mm3 (4.5-11.0) 07/09/20 05:19 RBC 4.84 M/mm3 (3.65-5.03) 07/09/20 05:19 Hgb 14.2 gm/dl (10.1-14.3) 07/09/20 05:19 Hct 42.6 % (30.3-42.9) 07/09/20 05:19 MCV 88 fl (79-97) 07/09/20 05:19 MCH 29 pg (28-32) 07/09/20 05:19 MCHC 33 % (30-34) 07/09/20 05:19 RDW 14.7 % (13.2-15.2) 07/09/20 05:19 Plt Count 110 K/mm3 (140-440) L 07/09/20 05:19 Lymph % (Auto) 31.3 % (13.4-35.0) 07/09/20 05:19 [place] % (Auto) 8.1 % (0.0-7.3) H 07/09/20 05:19 Eos % (Auto) 1.4 % (0.0-4.3) 07/09/20 05:19 Baso % (Auto) 0.5 % (0.0-1.8) 07/09/20 05:19 Lymph # (Auto) 2.0 K/mm3 (1.2-5.4) 07/09/20 05:19 [place] # (Auto) 0.5 K/mm3 (0.0-0.8) 07/09/20 05:19 Eos # (Auto) 0.1 K/mm3 (0.0-0.4) 07/09/20 05:19 Baso # (Auto) 0.0 K/mm3 (0.0-0.1) 07/09/20 05:19 Seg Neutrophils % 58.7 % (40.0-70.0) 07/09/20 05:19 Seg Neutrophils # 3.8 K/mm3 (1.8-7.7) 07/09/20 05:19 PT 13.3 Sec. (12.2-14.9) 07/08/20 10:58 INR 1.02 (0.87-1.13) 07/08/20 10:58 APTT 27.5 Sec. (24.2-36.6) 07/08/20 10:58 Thrombin Time 17.1 Sec. (15.1-19.6) 07/08/20 10:58 Sodium 141 mmol/L (137-145) 07/09/20 05:19 Potassium 3.8 mmol/L (3.6-5.0) 07/09/20 05:19 Chloride 107.6 mmol/L (98-107) H 07/09/20 05:19 Carbon Dioxide 25 mmol/L (22-30) 07/09/20 05:19 Anion Gap 12 mmol/L 07/09/20 05:19 BUN 18 mg/dL (7-17) H 07/09/20 05:19 Creatinine 1.2 mg/dL (0.6-1.2) 07/09/20 05:19 Estimated GFR 52 ml/min 07/09/20 05:19 BUN/Creatinine Ratio 15 % 07/09/20 05:19 Glucose 101 mg/dL (65-100) H 07/09/20 05:19 Hemoglobin A1c 5.7 % (4-6) 07/09/20 05:19 Calcium 8.7 mg/dL (8.4-10.2) 07/09/20 05:19 Total Bilirubin 0.40 mg/dL (0.1-1.2) 07/09/20 05:19 AST 36 units/L (5-40) 07/09/20 05:19 ALT 10 units/L (7-56) 07/09/20 05:19 Alkaline Phosphatase 79 units/L (35-129) 07/09/20 05:19 Total Creatine Kinase 1353 units/L (30-135) H 07/08/20 10:58 CK-MB (CK-2) 9.3 ng/mL (0.0-4.0) H 07/08/20 10:58 CK-MB (CK-2) Rel Index 0.6 (0-4) 07/08/20 10:58 Troponin T < 0.010 ng/mL (0.00-0.029) 07/08/20 10:58 Total Protein 6.2 g/dL (6.3-8.2) L 07/09/20 05:19 Albumin 3.7 g/dL (3.9-5) L 07/09/20 05:19 Albumin/Globulin Ratio 1.5 % 07/09/20 05:19 Triglycerides 64 mg/dL (2-149) 07/09/20 05:19 Cholesterol 178 mg/dL (50-199) 07/09/20 05:19 LDL Cholesterol Direct 107 mg/dL (50-130) 07/09/20 05:19 HDL Cholesterol 58 mg/dL (40-59) 07/09/20 05:19 Cholesterol/HDL Ratio 3.06 % 07/09/20 05:19 Shin/IV: Voiding Method Toilet Active Medications - Current Medications Current Medications: Generic Name Dose Route Start Last Admin Trade Name Freq PRN Reason Stop Dose Admin Acetaminophen 650 mg 07/08/20 22:54 Acetaminophen 325 Mg Tab PO Q4H PRN Pain MILD(1-3)/Fever >100.5/WHITESIDE Arformoterol Tartrate 15 mcg 07/09/20 08:00 07/09/20 10:10 Arformoterol 15 Mcg/2 Ml Nebu IH Not Given Q12HRT KRISTY Aspirin 325 mg 07/09/20 10:00 07/09/20 11:16 Aspirin 325 Mg Tab PO 325 mg QDAY KRISTY Administration Atorvastatin Calcium 40 mg 07/09/20 22:00 Atorvastatin 40 Mg Tab PO QHS KRISTY Budesonide 0.5 mg 07/09/20 08:00 07/09/20 10:10 Budesonide 0.5 Mg/2 Ml Nebu IH Not Given Q12HRT [facility] Carvedilol 12.5 mg 07/08/20 23:00 07/09/20 11:16 Carvedilol 12.5 Mg Tab PO 12.5 mg BID KRISTY Administration Famotidine 20 mg 07/09/20 10:00 07/09/20 11:16 Famotidine 20 Mg/2 Ml Inj IV 20 mg BID KRISTY Administration Hydrochlorothiazide 25 mg 07/09/20 10:00 07/09/20 11:16 Hydrochlorothiazide 25 Mg Tab PO 25 mg QDAY KRISTY Administration Hydromorphone HCl 0.5 mg 07/08/20 22:54 Hydromorphone 1 Mg/1 Ml Inj IV Q3H PRN Pain , Severe (7-10) Lisinopril 20 mg 07/09/20 10:00 07/09/20 11:16 Lisinopril 20 Mg Tab PO 20 mg QDAY KRISTY Administration Ondansetron HCl 4 mg 07/08/20 22:54 Ondansetron 4 Mg/2 Ml Inj IV Q8H PRN Nausea And Vomiting Oxycodone/Acetaminophen 1 tab 07/08/20 22:54 Oxycodone /Acetaminophen 5-325mg Tab PO Q6H PRN Pain, Moderate (4-6) Sodium Chloride 10 ml 07/08/20 23:00 07/09/20 11:21 Sodium Chloride 0.9% 10 Ml Flush Syringe IV 10 ml BID KRISTY Administration Sodium Chloride 10 ml 07/08/20 22:54 Sodium Chloride 0.9% 10 Ml Flush Syringe IV PRN PRN LINE FLUSH
[2020-07-10 06:07] LABS: Basophils # (Auto) 0.1 K/mm3 (0.0-0.1); Basophils % (Auto) 0.7 % (0.0-1.8); Eosinophils # (Auto) 0.2 K/mm3 (0.0-0.4); Eosinophils % (Auto) 2.1 % (0.0-4.3); Hematocrit 42.3 % (30.3-42.9); Lymphocytes # (Auto) 1.7 K/mm3 (1.2-5.4); Lymphocytes % (Auto) 23.2 % (13.4-35.0); Mean Corpuscular HGB Conc 33 % (30-34); Mean Corpuscular Volume 87 fl (79-97); Monocytes # (Auto) 0.6 K/mm3 (0.0-0.8); Monocytes % (Auto) 7.8 % (0.0-7.3); Platelet Count 122 K/mm3 (140-440); Red Blood Count 4.84 M/mm3 (3.65-5.03); Red Cell Distribution Width 14.6 % (13.2-15.2)
[2020-07-10 06:44] LABS: Albumin 3.8 g/dL (3.9-5); Calcium 8.6 mg/dL (8.4-10.2)
[2020-07-10] MEDS: BUDESONIDE 0.5 MG/2 ML NEBU IH SCH ×2 (08:53→21:46)
[2020-07-10] MEDS: ARFORMOTEROL 15 MCG/2 ML NEBU IH SCH ×3 (08:53→21:58)
[2020-07-10] MEDS: LISINOPRIL 20 MG TAB PO SCH (11:07)
[2020-07-10] MEDS: hydroCHLOROthiazide 25 MG TAB PO SCH (11:07)
[2020-07-10] MEDS: FAMOTIDINE 20 MG TAB PO SCH ×2 (11:08→22:18)
[2020-07-10] MEDS: carvediloL 12.5 MG TAB PO SCH ×2 (11:08→22:18)
[2020-07-10] MEDS: ASPIRIN 325 MG TAB PO SCH (11:08)
--- NOTE | 2020-07-10 11:39 | Progress Note ---
Assessment and Plan Assessment and plan: #CVA Echocardiogram - negative bubble study. 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 Vascular surgery recommends outpatient follow up with Dr Devaughn Wyatt in [facility].. Continue aspirin 325 mg daily Has 80 -90% stenosis of Left ICA. Vascular recommends addition of plavix (added) Continue statins #HTN Continue BP medications #HLD Continue lipitor 40 mg daily #Asthma Albuterol #Morbid obesity Diet and exercise #DVT ppx - heparin #Disposition Needs skilled vs acute rehab History Interval history: 84-year-old female with past medical history of hypertension comes in for difficulty talking and right upper extremity weakness. Patient unable to tell t he exact timeline. Patient states her difficulty talking is improved. Right upper extremity weakness persists.. Patient says the right lower extremity strength is normal. And patient is able to walk. No syncope. No seizures. No past cerebrovascular accidents. No TIAs in the past. No chest pain. Patient has a history of hypertension and hyperlipidemia and asthma. No fever or chills. No recent exposure to coronavirus. Patient states the symptoms were started 48 to 72 hours before. Hospital course 07/09. MRI brain shows acute stroke involving the left middle cerebral artery region. Neurology consulted. Patient is on aspirin and statins. 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 Vascular surgery is been consulted. She complains of right-sided arm weakness. Has been seen by physical therapy who recommends placement. 07/10. [place] and examined patient at bedside. Has slurred speech which seems unchanged. Has some right sided weakness as well. Vascular surgery evaluated patient. She will need to see Dr Devaughn Wyatt in [facility] after peggy diaz. Vascular recommended addition of plavix for now. Continue aspirin and statins. She will continue PT. She needs placement. Discussed with patients daughter. Hospitalist Physical - Physical exam Narrative exam: VITAL SIGNS: Reviewed. GENERAL: Awake HEAD: No signs of head trauma. EYES: Pupils are equal. Extraocular motions intact. MOUTH: Oropharynx is normal. NECK: No adenopathy, no JVD. CHEST: Chest with diminished breath sounds bilaterally. No wheezes, rales, or rhonchi. CARDIAC: normal S1 and S2, without murmurs, gallops, or rubs. ABDOMEN: Soft, non tender and non distended. No rebound or guarding, and no masses palpated. Bowel Sounds normal. MUSCULOSKELETAL: No edema NEUROLOGIC EXAM: Alert and oriented x3. RUE-4/5 SKIN: No obvious lesions - Constitutional Vitals: Temp Pulse Resp BP Pulse Ox 98.4 F 64 18 169/93 96 07/10/20 08:15 07/10/20 11:08 07/10/20 08:53 07/10/20 11:08 07/10/20 08:14 General appearance: Present: other (Occasional word searching) HEART Score - HEART Score Age: > 65 Risk factors: 1-2 risk factors Troponin: Troponin T < 0.010 ng/mL (0.00-0.029) 07/08/20 10:58 Troponin: < normal limit - Critical Actions Critical Actions: 0-3 pts:0.9-1.7%risk of adverse cardiac event.Candidate for discharge Results - Labs CBC & Chem 7: 07/10/20 05:23 07/10/20 05:23 Labs: Laboratory Last Values WBC 7.3 K/mm3 (4.5-11.0) 07/10/20 05:23 RBC 4.84 M/mm3 (3.65-5.03) 07/10/20 05:23 Hgb 14.0 gm/dl (10.1-14.3) 07/10/20 05:23 Hct 42.3 % (30.3-42.9) 07/10/20 05:23 MCV 87 fl (79-97) 07/10/20 05:23 MCH 29 pg (28-32) 07/10/20 05:23 MCHC 33 % (30-34) 07/10/20 05:23 RDW 14.6 % (13.2-15.2) 07/10/20 05:23 Plt Count 122 K/mm3 (140-440) L 07/10/20 05:23 Lymph % (Auto) 23.2 % (13.4-35.0) 07/10/20 05:23 [place] % (Auto) 7.8 % (0.0-7.3) H 07/10/20 05:23 Eos % (Auto) 2.1 % (0.0-4.3) 07/10/20 05:23 Baso % (Auto) 0.7 % (0.0-1.8) 07/10/20 05:23 Lymph # (Auto) 1.7 K/mm3 (1.2-5.4) 07/10/20 05:23 [place] # (Auto) 0.6 K/mm3 (0.0-0.8) 07/10/20 05:23 Eos # (Auto) 0.2 K/mm3 (0.0-0.4) 07/10/20 05:23 Baso # (Auto) 0.1 K/mm3 (0.0-0.1) 07/10/20 05:23 Seg Neutrophils % 66.2 % (40.0-70.0) 07/10/20 05:23 Seg Neutrophils # 4.8 K/mm3 (1.8-7.7) 07/10/20 05:23 PT 13.3 Sec. (12.2-14.9) 07/08/20 10:58 INR 1.02 (0.87-1.13) 07/08/20 10:58 APTT 27.5 Sec. (24.2-36.6) 07/08/20 10:58 Thrombin Time 17.1 Sec. (15.1-19.6) 07/08/20 10:58 Sodium 140 mmol/L (137-145) 07/10/20 05:23 Potassium 3.8 mmol/L (3.6-5.0) 07/10/20 05:23 Chloride 104.2 mmol/L (98-107) 07/10/20 05:23 Carbon Dioxide 26 mmol/L (22-30) 07/10/20 05:23 Anion Gap 14 mmol/L 07/10/20 05:23 BUN 14 mg/dL (7-17) 07/10/20 05:23 Creatinine 1.1 mg/dL (0.6-1.2) 07/10/20 05:23 Estimated GFR 58 ml/min 07/10/20 05:23 BUN/Creatinine Ratio 13 % 07/10/20 05:23 Glucose 102 mg/dL (65-100) H 07/10/20 05:23 Hemoglobin A1c 5.7 % (4-6) 07/09/20 05:19 Calcium 8.6 mg/dL (8.4-10.2) 07/10/20 05:23 Total Bilirubin 0.50 mg/dL (0.1-1.2) 07/10/20 05:23 AST 30 units/L (5-40) 07/10/20 05:23 ALT 11 units/L (7-56) 07/10/20 05:23 Alkaline Phosphatase 85 units/L (35-129) 07/10/20 05:23 Total Creatine Kinase 626 units/L (30-135) H 07/10/20 05:23 CK-MB (CK-2) 9.3 ng/mL (0.0-4.0) H 07/08/20 10:58 CK-MB (CK-2) Rel Index 0.6 (0-4) 07/08/20 10:58 Troponin T < 0.010 ng/mL (0.00-0.029) 07/08/20 10:58 Total Protein 6.6 g/dL (6.3-8.2) 07/10/20 05:23 Albumin 3.8 g/dL (3.9-5) L 07/10/20 05:23 Albumin/Globulin Ratio 1.4 % 07/10/20 05:23 Triglycerides 64 mg/dL (2-149) 07/09/20 05:19 Cholesterol 178 mg/dL (50-199) 07/09/20 05:19 LDL Cholesterol Direct 107 mg/dL (50-130) 07/09/20 05:19 HDL Cholesterol 58 mg/dL (40-59) 07/09/20 05:19 Cholesterol/HDL Ratio 3.06 % 07/09/20 05:19 Shin/IV: Voiding Method Toilet Active Medications - Current Medications Current Medications: Generic Name Dose Route Start Last Admin Trade Name Freq PRN Reason Stop Dose Admin Acetaminophen 650 mg 07/08/20 22:54 Acetaminophen 325 Mg Tab PO Q4H PRN Pain MILD(1-3)/Fever >100.5/WHITESIDE Arformoterol Tartrate 15 mcg 07/09/20 08:00 07/10/20 08:53 Arformoterol 15 Mcg/2 Ml Nebu IH 15 mcg Q12HRT KRISTY Administration Aspirin 325 mg 07/09/20 10:00 07/10/20 11:08 Aspirin 325 Mg Tab PO 325 mg QDAY KRISTY Administration Atorvastatin Calcium 40 mg 07/09/20 22:00 07/09/20 21:31 Atorvastatin 40 Mg Tab PO 40 mg QHS KRISTY Administration Budesonide 0.5 mg 07/09/20 08:00 07/10/20 08:53 Budesonide 0.5 Mg/2 Ml Nebu IH 0.5 mg Q12HRT KRISTY Administration Carvedilol 12.5 mg 07/08/20 23:00 07/10/20 11:08 Carvedilol 12.5 Mg Tab PO 12.5 mg BID KRISTY Administration Famotidine 20 mg 07/10/20 10:00 07/10/20 11:08 Famotidine 20 Mg Tab PO 20 mg BID KRISTY Administration Hydrochlorothiazide 25 mg 07/09/20 10:00 07/10/20 11:07 Hydrochlorothiazide 25 Mg Tab PO 25 mg QDAY KRISTY Administration Hydromorphone HCl 0.5 mg 07/08/20 22:54 Hydromorphone 1 Mg/1 Ml Inj IV Q3H PRN Pain , Severe (7-10) Lisinopril 20 mg 07/09/20 10:00 07/10/20 11:07 Lisinopril 20 Mg Tab PO 20 mg QDAY KRISTY Administration Ondansetron HCl 4 mg 07/08/20 22:54 Ondansetron 4 Mg/2 Ml Inj IV Q8H PRN Nausea And Vomiting Oxycodone/Acetaminophen 1 tab 07/08/20 22:54 Oxycodone /Acetaminophen 5-325mg Tab PO Q6H PRN Pain, Moderate (4-6) Sodium Chloride 10 ml 07/08/20 23:00 07/10/20 11:08 Sodium Chloride 0.9% 10 Ml Flush Syringe IV 10 ml BID KRISTY Administration Sodium Chloride 10 ml 07/08/20 22:54 Sodium Chloride 0.9% 10 Ml Flush Syringe IV PRN PRN LINE FLUSH
[2020-07-10] MEDS: amLODIPine 10 MG TAB PO SCH (14:07)
[2020-07-10] MEDS: ENOXAPARIN 40 MG/0.4 ML INJ SUB-Q SCH (14:07)
[2020-07-10] MEDS: CLOPIDOGREL 75 MG TAB PO SCH (14:08)
[2020-07-10] MEDS: hydrALAZINE 20 MG/1 ML INJ IV PRN (14:08)
[2020-07-10] MEDS ORDERED: methylPREDNISolone Sod Suc 40 MG in SODIUM CHLORIDE 0.9% 100 ML IV SCH (16:00)
[2020-07-10] MEDS: methylPREDNISolone Sod Succinate 40 MG/1 ML INJ IV SCH ×2 (16:46→22:18)
[2020-07-10] MEDS: ALBUTEROL 2.5 MG/3 ML NEBU IH SCH ×3 (21:46→21:59)
[2020-07-11] MEDS: methylPREDNISolone Sod Succinate 40 MG/1 ML INJ IV SCH ×3 (05:53→21:28)
[2020-07-11] MEDS: BUDESONIDE 0.5 MG/2 ML NEBU IH SCH ×2 (08:44→21:58)
[2020-07-11] MEDS: ARFORMOTEROL 15 MCG/2 ML NEBU IH SCH ×2 (08:44→21:58)
[2020-07-11] MEDS: CLOPIDOGREL 75 MG TAB PO SCH (09:55)
[2020-07-11] MEDS: LISINOPRIL 20 MG TAB PO SCH (09:56)
[2020-07-11] MEDS: hydroCHLOROthiazide 25 MG TAB PO SCH (09:56)
[2020-07-11] MEDS: ASPIRIN EC 81 MG TAB PO SCH (09:56)
[2020-07-11] MEDS: carvediloL 12.5 MG TAB PO SCH ×2 (09:57→21:28)
[2020-07-11] MEDS: amLODIPine 10 MG TAB PO SCH (09:57)
[2020-07-11] MEDS: FAMOTIDINE 20 MG TAB PO SCH ×2 (09:57→21:29)
[2020-07-11] MEDS: ENOXAPARIN 40 MG/0.4 ML INJ SUB-Q SCH (09:59)
--- NOTE | 2020-07-11 11:41 | Discharge Summary ---
Providers - Providers Date of Admission: 07/09/20 11:41 Date of discharge: 07/11/20 Attending physician: MARCELLE WATERS 07/08/20 Consult to Physician [CONS] Routine Comment: Consulting Provider: FRANCISCO ERNANDEZ Physician Instructions: Reason For Exam: Acute CVA 07/08/20 22:56 Occupational Therapy Evaluate and Treat [CONS] Routine Comment: Reason For Exam: Neuro deficits Physical Therapy Evaluation and Treat [CONS] Routine Comment: Reason For Exam: Neuro deficits 07/08/20 22:57 Speech Therapy Evaluation and Treat [CONS] Routine Reason For Exam: swallow eval 07/09/20 11:55 Consult to Physician [CONS] Routine Comment: Consulting Provider: TANESHA TORRES Physician Instructions: Reason For Exam: CVA with Left ICA stenosis Primary care physician: [employer] Hospitalization Condition: Stable Hospital course: 84-year-old female with past medical history of hypertension comes in for difficulty talking and right upper extremity weakness. Patient unable to tell the exact timeline. Patient states her difficulty talking is improved. Right upper extremity weakness persists.. Patient says the right lower extremity strength is normal. And patient is able to walk. No syncope. No seizures. No past cerebrovascular accidents. No TIAs in the past. No chest pain. Patient has a history of hypertension and hyperlipidemia and asthma. No fever or chills. No recent exposure to coronavirus. Patient states the symptoms were started 48 to 72 hours before. Hospital course 07/09. MRI brain shows acute stroke involving the left middle cerebral artery region. Neurology consulted. Patient is on aspirin and statins. 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 Vascular surgery is been consulted. She complains of right-sided arm weakness. Has been seen by physical therapy who recommends placement. 07/10. Saw and examined patient at bedside. Has slurred speech which seems unchanged. Has some right sided weakness as well. Vascular surgery evaluated patient. She will need to see Dr Devaughn Wyatt in [facility] after discharge. Vascular recommended addition of plavix for now. Continue aspirin and statins. She will continue PT. She needs placement. Discussed with patients daughter and she will schedule an appointment for her to see vascular - Dr Wyatt. 07/11. Has no change in gross neurological exam. She has been accepted to a facility and will need insurance auth. She will be discharged on aspirin, plavix and statins. She will need to follow up with neurology and vascular surgery in 1 week. Discussed with patients daughter who agrees with current plan. Disposition: DC-01 TO HOME OR SELFCARE Final Discharge Diagnosis (Prints w/discharge instructions): Acute CVA Time spent for discharge: 45 mins Core Measure Documentation - Palliative Care Palliative Care/ Comfort Measures: Not Applicable - Core Measures Any of the following diagnoses?: stroke - Stroke Discharge Requirements Statin for LDL = or >70 mg/dl on DC: Yes Anticoag for atrial fib/atrial flutter: No Reason for no anticoag for AF/F on DC: Not Indicated Antithrombotic for ischemic stroke: Yes Exam - Physical Exam Narrative exam: VITAL SIGNS: Reviewed. GENERAL: Awake HEAD: No signs of head trauma. EYES: Pupils are equal. Extraocular motions intact. MOUTH: Oropharynx is normal. NECK: No adenopathy, no JVD. CHEST: Chest with diminished breath sounds bilaterally. No wheezes, rales, or rhonchi. CARDIAC: normal S1 and S2, without murmurs, gallops, or rubs. ABDOMEN: Soft, non tender and non distended. No rebound or guarding, and no masses palpated. Bowel Sounds normal. MUSCULOSKELETAL: No edema NEUROLOGIC EXAM: Alert and oriented x3. Dysarthria. Right sided weakness SKIN: No obvious lesions - Constitutional Vitals: Temp Pulse Resp BP Pulse Ox 98.5 F 68 20 139/71 91 07/11/20 04:20 07/11/20 09:57 07/11/20 04:20 07/11/20 09:57 07/11/20 04:20 Plan Diet: low fat, low cholesterol, low salt Additional Instructions: Continue aspirin and Plavix. Continue statins. Follow-up with Dr. Wyatt in [facility] in 1 week. Follow-up with vascular surgery [Dr. Torres] in the office in 1 week [referral placed]. Follow- up with neurology in 1 week [referral placed]. Continue physical therapy. Continue rest of home medications Follow up with: CARMELLA ARGUETA MD [Primary Care Provider] - 7 Days FRANCISCO ERNANDEZ MD [Staff Physician] - 7 Days TANESHA TORRES MD [Staff Physician] - 7 Days Prescriptions: AtorvaSTATin [Lipitor] 40 mg PO QHS #30 tablet amLODIPine 10 mg PO QDAY #30 tablet carvediloL [Coreg] 12.5 mg PO BID #60 predniSONE [Deltasone] 40 mg PO QDAY #10 tab Fluticasone Propionate [Flovent Diskus] 50 mcg IH QDAY #1 inh Aspirin EC [Halfprin EC] 81 mg PO QDAY #30 tablet Clopidogrel [Plavix] 75 mg PO QDAY #30 tablet Lisinopril/Hydrochlorothiazide [Zestoretic 20-25 mg] 1 tab PO QDAY #30
[2020-07-12] MEDS: methylPREDNISolone Sod Succinate 40 MG/1 ML INJ IV SCH ×3 (05:15→21:26)
[2020-07-12] MEDS: ALBUTEROL 2.5 MG/3 ML NEBU IH SCH ×3 (09:10→20:51)
[2020-07-12] MEDS: BUDESONIDE 0.5 MG/2 ML NEBU IH SCH ×2 (09:10→20:51)
[2020-07-12] MEDS: ARFORMOTEROL 15 MCG/2 ML NEBU IH SCH ×2 (09:10→20:52)
[2020-07-12] MEDS: ASPIRIN EC 81 MG TAB PO SCH (09:23)
[2020-07-12] MEDS: FAMOTIDINE 20 MG TAB PO SCH ×2 (09:23→21:26)
[2020-07-12] MEDS: amLODIPine 10 MG TAB PO SCH (09:23)
[2020-07-12] MEDS: LISINOPRIL 20 MG TAB PO SCH (09:23)
[2020-07-12] MEDS: ENOXAPARIN 40 MG/0.4 ML INJ SUB-Q SCH (09:23)
[2020-07-12] MEDS: carvediloL 12.5 MG TAB PO SCH ×2 (09:23→21:26)
[2020-07-12] MEDS: CLOPIDOGREL 75 MG TAB PO SCH (09:23)
[2020-07-12] MEDS: hydroCHLOROthiazide 25 MG TAB PO SCH (09:23)
--- NOTE | 2020-07-12 11:22 | Progress Note ---
Assessment and Plan Assessment and plan: #CVA Echocardiogram - negative bubble study. 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 Vascular surgery recommends outpatient follow up with Dr Devaughn Wyatt in [facility].. 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 Vascular recommends addition of plavix (added) Continue statins #HTN Continue BP medications #HLD Continue lipitor 40 mg daily #Asthma Albuterol #Morbid obesity Diet and exercise #DVT ppx - heparin #Disposition Needs skilled vs acute rehab History Interval history: 84-year-old female with past medical history of hypertension comes in for difficulty talking and right upper extremity weakness. Patient unable to tell the exact timeline. Patient states her difficulty talking is improved. Right upper extremity weakness persists.. Patient says the right lower extremity strength is normal. And patient is able to walk. No syncope. No seizures. No past cerebrovascular accidents. No TIAs in the past. No chest pain. Patient has a history of hypertension and hyperlipidemia and asthma. No fever or chills. No recent exposure to coronavirus. Patient states the symptoms were started 48 to 72 hours before. Hospital course 07/09. MRI brain shows acute stroke involving the left middle cerebral artery region. Neurology consulted. Patient is on aspirin and statins. 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 Vascular surgery is been consulted. She complains of right-sided arm weakness. Has been seen by physical therapy who recommends placement. 07/10. [place] and examined patient at bedside. Has slurred speech which seems unchanged. Has some right sided weakness as well. Vascular surgery evaluated patient. She will need to see Dr Devaughn Wyatt in [facility] after discharge. Vascular recommended addition of plavix for now. Continue aspirin and statins. She will continue PT. She needs placement. Discussed with patients daughter. 07/11. Awaiting placement. Continue aspirin and plan. Possible DC today. Awaiting insurance authorization. 07/12. Still waiting for insurance authorization. No new complaints. Getting PT Hospitalist Physical - Physical exam Narrative exam: VITAL SIGNS: Reviewed. GENERAL: Awake HEAD: No signs of head trauma. EYES: Pupils are equal. Extraocular motions intact. MOUTH: Oropharynx is normal. NECK: No adenopathy, no JVD. CHEST: Chest with diminished breath sounds bilaterally. No wheezes, rales, or rhonchi. CARDIAC: normal S1 and S2, without murmurs, gallops, or rubs. ABDOMEN: Soft, non tender and non distended. No rebound or guarding, and no masses palpated. Bowel Sounds normal. MUSCULOSKELETAL: No edema NEUROLOGIC EXAM: Alert and oriented x3. Dysarthria. Right sided weakness SKIN: No obvious lesions - Constitutional Vitals: Temp Pulse Resp BP Pulse Ox 97.6 F 63 16 133/85 92 07/12/20 07:23 07/12/20 09:33 07/12/20 09:25 07/12/20 07:23 07/12/20 07:23 General appearance: Present: other (Occasional word searching) HEART Score - HEART Score Age: > 65 Risk factors: 1-2 risk factors Troponin: Troponin T < 0.010 ng/mL (0.00-0.029) 07/08/20 10:58 Troponin: < normal limit - Critical Actions Critical Actions: 0-3 pts:0.9-1.7%risk of adverse cardiac event.Candidate for discharge Results - Labs CBC & Chem 7: 07/10/20 05:23 07/10/20 05:23 Labs: Laboratory Last Values WBC 7.3 K/mm3 (4.5-11.0) 07/10/20 05:23 RBC 4.84 M/mm3 (3.65-5.03) 07/10/20 05:23 Hgb 14.0 gm/dl (10.1-14.3) 07/10/20 05:23 Hct 42.3 % (30.3-42.9) 07/10/20 05:23 MCV 87 fl (79-97) 07/10/20 05:23 MCH 29 pg (28-32) 07/10/20 05:23 MCHC 33 % (30-34) 07/10/20 05:23 RDW 14.6 % (13.2-15.2) 07/10/20 05:23 Plt Count 122 K/mm3 (140-440) L 07/10/20 05:23 Lymph % (Auto) 23.2 % (13.4-35.0) 07/10/20 05:23 [place] % (Auto) 7.8 % (0.0-7.3) H 07/10/20 05:23 Eos % (Auto) 2.1 % (0.0-4.3) 07/10/20 05:23 Baso % (Auto) 0.7 % (0.0-1.8) 07/10/20 05:23 Lymph # (Auto) 1.7 K/mm3 (1.2-5.4) 07/10/20 05:23 [place] # (Auto) 0.6 K/mm3 (0.0-0.8) 07/10/20 05:23 Eos # (Auto) 0.2 K/mm3 (0.0-0.4) 07/10/20 05:23 Baso # (Auto) 0.1 K/mm3 (0.0-0.1) 07/10/20 05:23 Seg Neutrophils % 66.2 % (40.0-70.0) 07/10/20 05:23 Seg Neutrophils # 4.8 K/mm3 (1.8-7.7) 07/10/20 05:23 PT 13.3 Sec. (12.2-14.9) 07/08/20 10:58 INR 1.02 (0.87-1.13) 07/08/20 10:58 APTT 27.5 Sec. (24.2-36.6) 07/08/20 10:58 Thrombin Time 17.1 Sec. (15.1-19.6) 07/08/20 10:58 Sodium 140 mmol/L (137-145) 07/10/20 05:23 Potassium 3.8 mmol/L (3.6-5.0) 07/10/20 05:23 Chloride 104.2 mmol/L (98-107) 07/10/20 05:23 Carbon Dioxide 26 mmol/L (22-30) 07/10/20 05:23 Anion Gap 14 mmol/L 07/10/20 05:23 BUN 14 mg/dL (7-17) 07/10/20 05:23 Creatinine 1.1 mg/dL (0.6-1.2) 07/10/20 05:23 Estimated GFR 58 ml/min 07/10/20 05:23 BUN/Creatinine Ratio 13 % 07/10/20 05:23 Glucose 102 mg/dL (65-100) H 07/10/20 05:23 Hemoglobin A1c 5.7 % (4-6) 07/09/20 05:19 Calcium 8.6 mg/dL (8.4-10.2) 07/10/20 05:23 Total Bilirubin 0.50 mg/dL (0.1-1.2) 07/10/20 05:23 AST 30 units/L (5-40) 07/10/20 05:23 ALT 11 units/L (7-56) 07/10/20 05:23 Alkaline Phosphatase 85 units/L (35-129) 07/10/20 05:23 Total Creatine Kinase 626 units/L (30-135) H 07/10/20 05:23 CK-MB (CK-2) 9.3 ng/mL (0.0-4.0) H 07/08/20 10:58 CK-MB (CK-2) Rel Index 0.6 (0-4) 07/08/20 10:58 Troponin T < 0.010 ng/mL (0.00-0.029) 07/08/20 10:58 Total Protein 6.6 g/dL (6.3-8.2) 07/10/20 05:23 Albumin 3.8 g/dL (3.9-5) L 07/10/20 05:23 Albumin/Globulin Ratio 1.4 % 07/10/20 05:23 Triglycerides 64 mg/dL (2-149) 07/09/20 05:19 Cholesterol 178 mg/dL (50-199) 07/09/20 05:19 LDL Cholesterol Direct 107 mg/dL (50-130) 07/09/20 05:19 HDL Cholesterol 58 mg/dL (40-59) 07/09/20 05:19 Cholesterol/HDL Ratio 3.06 % 07/09/20 05:19 Shin/IV: Voiding Method External Female Catheter Active Medications - Current Medications Current Medications: Generic Name Dose Route Start Last Admin Trade Name Freq PRN Reason Stop Dose Admin Acetaminophen 650 mg 07/08/20 22:54 Acetaminophen 325 Mg Tab PO Q4H PRN Pain MILD(1-3)/Fever >100.5/WHITESIDE Albuterol 2.5 mg 07/12/20 08:00 07/12/20 09:10 Albuterol 2.5 Mg/3 Ml Nebu IH 2.5 mg TIDRT KRISTY Administration Amlodipine Besylate 10 mg 07/10/20 14:00 07/12/20 09:23 Amlodipine 10 Mg Tab PO 10 mg QDAY KRISTY Administration Arformoterol Tartrate 15 mcg 07/09/20 08:00 07/12/20 09:10 Arformoterol 15 Mcg/2 Ml Nebu IH 15 mcg Q12HRT KRISTY Administration Aspirin 81 mg 07/11/20 10:00 07/12/20 09:23 Aspirin Ec 81 Mg Tab PO 81 mg QDAY KRISTY Administration Atorvastatin Calcium 40 mg 07/09/20 22:00 07/11/20 21:29 Atorvastatin 40 Mg Tab PO 40 mg QHS KRISTY Administration Budesonide 0.5 mg 07/09/20 08:00 07/12/20 09:10 Budesonide 0.5 Mg/2 Ml Nebu IH 0.5 mg Q12HRT KRISTY Administration Carvedilol 12.5 mg 07/08/20 23:00 07/12/20 09:23 Carvedilol 12.5 Mg Tab PO 12.5 mg BID KRISTY Administration Clopidogrel Bisulfate 75 mg 07/10/20 14:00 07/12/20 09:23 Clopidogrel 75 Mg Tab PO 75 mg QDAY KRISTY Administration Enoxaparin Sodium 40 mg 07/10/20 14:00 07/12/20 09:23 Enoxaparin 40 Mg/0.4 Ml Inj SUB-Q 40 mg QDAY KRISTY Administration Protocol Famotidine 20 mg 07/10/20 10:00 07/12/20 09:23 Famotidine 20 Mg Tab PO 20 mg BID KRISTY Administration Hydralazine HCl 10 mg 07/10/20 13:51 07/10/20 14:08 Hydralazine 20 Mg/1 Ml Inj IV 10 mg Q6H PRN Administration SBP >180 or DBP >110 Hydrochlorothiazide 25 mg 07/09/20 10:00 07/12/20 09:23 Hydrochlorothiazide 25 Mg Tab PO 25 mg QDAY KRISTY Administration Hydromorphone HCl 0.5 mg 07/08/20 22:54 Hydromorphone 1 Mg/1 Ml Inj IV Q3H PRN Pain , Severe (7-10) Lisinopril 20 mg 07/09/20 10:00 07/12/20 09:23 Lisinopril 20 Mg Tab PO 20 mg QDAY KRISTY Administration Methylprednisolone Sodium Succinate 40 mg 07/10/20 16:00 07/12/20 05:15 Methylprednisolone Sod Succinate 40 Mg/1 Ml Inj IV 40 mg Q8HR KRISTY Administration Ondansetron HCl 4 mg 07/08/20 22:54 Ondansetron 4 Mg/2 Ml Inj IV Q8H PRN Nausea And Vomiting Oxycodone/Acetaminophen 1 tab 07/08/20 22:54 Oxycodone /Acetaminophen 5-325mg Tab PO Q6H PRN Pain, Moderate (4-6) Sodium Chloride 10 ml 07/08/20 23:00 07/12/20 09:23 Sodium Chloride 0.9% 10 Ml Flush Syringe IV 10 ml BID KRISTY Administration Sodium Chloride 10 ml 07/08/20 22:54 Sodium Chloride 0.9% 10 Ml Flush Syringe IV PRN PRN LINE FLUSH
[2020-07-13] MEDS: methylPREDNISolone Sod Succinate 40 MG/1 ML INJ IV SCH ×3 (05:48→21:45)
[2020-07-13] MEDS: BUDESONIDE 0.5 MG/2 ML NEBU IH SCH ×2 (08:03→23:40)
[2020-07-13] MEDS: ALBUTEROL 2.5 MG/3 ML NEBU IH SCH ×3 (08:03→23:40)
[2020-07-13] MEDS: ARFORMOTEROL 15 MCG/2 ML NEBU IH SCH ×2 (08:03→23:40)
--- NOTE | 2020-07-13 08:58 | Progress Note ---
Assessment and Plan Assessment and plan: #CVA Echocardiogram - negative bubble study. 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 Vascular surgery recommends outpatient follow up with Dr Devaughn Wyatt in [facility].. 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 Vascular recommends addition of plavix (added) Continue statins #HTN Continue BP medications #HLD Continue lipitor 40 mg daily #Asthma Albuterol #Morbid obesity Diet and exercise #DVT ppx - heparin #Disposition Needs skilled vs acute rehab History Interval history: 84-year-old female with past medical history of hypertension comes in for difficulty talking and right upper extremity weakness. Patient unable to tell the exact timeline. Patient states her difficulty talking is improved. Right upper extremity weakness persists.. Patient says the right lower extremity strength is normal. And patient is able to walk. No syncope. No seizures. No past cerebrovascular accidents. No TIAs in the past. No chest pain. Patient has a history of hypertension and hyperlipidemia and asthma. No fever or chills. No recent exposure to coronavirus. Patient states the symptoms were started 48 to 72 hours before. Hospital course 07/09. MRI brain shows acute stroke involving the left middle cerebral artery region. Neurology consulted. Patient is on aspirin and statins. 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 Vascular surgery is been consulted. She complains of right-sided arm weakness. Has been seen by physical therapy who recommends placement. 07/10. [place] and examined patient at bedside. Has slurred speech which seems unchanged. Has some right sided weakness as well. Vascular surgery evaluated patient. She will need to see Dr Devaughn Wyatt in [facility] after discharge. Vascular recommended addition of plavix for now. Continue aspirin and statins. She will continue PT. She needs placement. Discussed with patients daughter. 07/11. Awaiting placement. Continue aspirin and plan. Possible DC today. Awaiting insurance authorization. 07/12. Still waiting for insurance authorization. No new complaints. Getting PT 07/13. No change in neurological condition. Awaiting insurance auth. Hospitalist Physical - Physical exam Narrative exam: VITAL SIGNS: Reviewed. GENERAL: Awake HEAD: No signs of head trauma. EYES: Pupils are equal. Extraocular motions intact. MOUTH: Oropharynx is normal. NECK: No adenopathy, no JVD. CHEST: Chest with diminished breath sounds bilaterally. No wheezes, rales, or rhonchi. CARDIAC: normal S1 and S2, without murmurs, gallops, or rubs. ABDOMEN: Soft, non tender and non distended. No rebound or guarding, and no masses palpated. Bowel Sounds normal. MUSCULOSKELETAL: No edema NEUROLOGIC EXAM: Alert and oriented x3. Dysarthria. Right sided weakness - 3/5 right arm, 4/5 RLE SKIN: No obvious lesions - Constitutional Vitals: Temp Pulse Resp BP Pulse Ox 97.8 F 55 L 20 166/95 95 07/13/20 08:17 07/13/20 08:17 07/13/20 08:17 07/13/20 08:17 07/13/20 08:17 General appearance: Present: other (Occasional word searching) HEART Score - HEART Score Age: > 65 Risk factors: 1-2 risk factors Troponin: Troponin T < 0.010 ng/mL (0.00-0.029) 07/08/20 10:58 Troponin: < normal limit - Critical Actions Critical Actions: 0-3 pts:0.9-1.7%risk of adverse cardiac event.Candidate for discharge Results - Labs CBC & Chem 7: 07/10/20 05:23 07/10/20 05:23 Labs: Laboratory Last Values WBC 7.3 K/mm3 (4.5-11.0) 07/10/20 05:23 RBC 4.84 M/mm3 (3.65-5.03) 07/10/20 05:23 Hgb 14.0 gm/dl (10.1-14.3) 07/10/20 05:23 Hct 42.3 % (30.3-42.9) 07/10/20 05:23 MCV 87 fl (79-97) 07/10/20 05:23 MCH 29 pg (28-32) 07/10/20 05:23 MCHC 33 % (30-34) 07/10/20 05:23 RDW 14.6 % (13.2-15.2) 07/10/20 05:23 Plt Count 122 K/mm3 (140-440) L 07/10/20 05:23 Lymph % (Auto) 23.2 % (13.4-35.0) 07/10/20 05:23 [place] % (Auto) 7.8 % (0.0-7.3) H 07/10/20 05:23 Eos % (Auto) 2.1 % (0.0-4.3) 07/10/20 05:23 Baso % (Auto) 0.7 % (0.0-1.8) 07/10/20 05:23 Lymph # (Auto) 1.7 K/mm3 (1.2-5.4) 07/10/20 05:23 [place] # (Auto) 0.6 K/mm3 (0.0-0.8) 07/10/20 05:23 Eos # (Auto) 0.2 K/mm3 (0.0-0.4) 07/10/20 05:23 Baso # (Auto) 0.1 K/mm3 (0.0-0.1) 07/10/20 05:23 Seg Neutrophils % 66.2 % (40.0-70.0) 07/10/20 05:23 Seg Neutrophils # 4.8 K/mm3 (1.8-7.7) 07/10/20 05:23 PT 13.3 Sec. (12.2-14.9) 07/08/20 10:58 INR 1.02 (0.87-1.13) 07/08/20 10:58 APTT 27.5 Sec. (24.2-36.6) 07/08/20 10:58 Thrombin Time 17.1 Sec. (15.1-19.6) 07/08/20 10:58 Sodium 140 mmol/L (137-145) 07/10/20 05:23 Potassium 3.8 mmol/L (3.6-5.0) 07/10/20 05:23 Chloride 104.2 mmol/L (98-107) 07/10/20 05:23 Carbon Dioxide 26 mmol/L (22-30) 07/10/20 05:23 Anion Gap 14 mmol/L 07/10/20 05:23 BUN 14 mg/dL (7-17) 07/10/20 05:23 Creatinine 1.1 mg/dL (0.6-1.2) 07/10/20 05:23 Estimated GFR 58 ml/min 07/10/20 05:23 BUN/Creatinine Ratio 13 % 07/10/20 05:23 Glucose 102 mg/dL (65-100) H 07/10/20 05:23 Hemoglobin A1c 5.7 % (4-6) 07/09/20 05:19 Calcium 8.6 mg/dL (8.4-10.2) 07/10/20 05:23 Total Bilirubin 0.50 mg/dL (0.1-1.2) 07/10/20 05:23 AST 30 units/L (5-40) 07/10/20 05:23 ALT 11 units/L (7-56) 07/10/20 05:23 Alkaline Phosphatase 85 units/L (35-129) 07/10/20 05:23 Total Creatine Kinase 626 units/L (30-135) H 07/10/20 05:23 CK-MB (CK-2) 9.3 ng/mL (0.0-4.0) H 07/08/20 10:58 CK-MB (CK-2) Rel Index 0.6 (0-4) 07/08/20 10:58 Troponin T < 0.010 ng/mL (0.00-0.029) 07/08/20 10:58 Total Protein 6.6 g/dL (6.3-8.2) 07/10/20 05:23 Albumin 3.8 g/dL (3.9-5) L 07/10/20 05:23 Albumin/Globulin Ratio 1.4 % 07/10/20 05:23 Triglycerides 64 mg/dL (2-149) 07/09/20 05:19 Cholesterol 178 mg/dL (50-199) 07/09/20 05:19 LDL Cholesterol Direct 107 mg/dL (50-130) 07/09/20 05:19 HDL Cholesterol 58 mg/dL (40-59) 07/09/20 05:19 Cholesterol/HDL Ratio 3.06 % 07/09/20 05:19 Shin/IV: Voiding Method External Female Catheter Active Medications - Current Medications Current Medications: Generic Name Dose Route Start Last Admin Trade Name Freq PRN Reason Stop Dose Admin Acetaminophen 650 mg 07/08/20 22:54 Acetaminophen 325 Mg Tab PO Q4H PRN Pain MILD(1-3)/Fever >100.5/WHITESIDE Albuterol 2.5 mg 07/12/20 08:00 07/13/20 08:03 Albuterol 2.5 Mg/3 Ml Nebu IH 2.5 mg TIDRT KRISTY Administration Amlodipine Besylate 10 mg 07/10/20 14:00 07/12/20 09:23 Amlodipine 10 Mg Tab PO 10 mg QDAY KRISTY Administration Arformoterol Tartrate 15 mcg 07/09/20 08:00 07/13/20 08:03 Arformoterol 15 Mcg/2 Ml Nebu IH 15 mcg Q12HRT KRISTY Administration Aspirin 81 mg 07/11/20 10:00 07/12/20 09:23 Aspirin Ec 81 Mg Tab PO 81 mg QDAY KRISTY Administration Atorvastatin Calcium 40 mg 07/09/20 22:00 07/12/20 21:26 Atorvastatin 40 Mg Tab PO 40 mg QHS KRISTY Administration Budesonide 0.5 mg 07/09/20 08:00 07/13/20 08:03 Budesonide 0.5 Mg/2 Ml Nebu IH 0.5 mg Q12HRT KRISTY Administration Carvedilol 12.5 mg 07/08/20 23:00 07/12/20 21:26 Carvedilol 12.5 Mg Tab PO 12.5 mg BID KRISTY Administration Clopidogrel Bisulfate 75 mg 07/10/20 14:00 07/12/20 09:23 Clopidogrel 75 Mg Tab PO 75 mg QDAY KRISTY Administration Enoxaparin Sodium 40 mg 07/10/20 14:00 07/12/20 09:23 Enoxaparin 40 Mg/0.4 Ml Inj SUB-Q 40 mg QDAY KRISTY Administration Protocol Famotidine 20 mg 07/10/20 10:00 07/12/20 21:26 Famotidine 20 Mg Tab PO 20 mg BID KRISTY Administration Hydralazine HCl 10 mg 07/10/20 13:51 07/10/20 14:08 Hydralazine 20 Mg/1 Ml Inj IV 10 mg Q6H PRN Administration SBP >180 or DBP >110 Hydrochlorothiazide 25 mg 07/09/20 10:00 07/12/20 09:23 Hydrochlorothiazide 25 Mg Tab PO 25 mg QDAY KRISTY Administration Hydromorphone HCl 0.5 mg 07/08/20 22:54 Hydromorphone 1 Mg/1 Ml Inj IV Q3H PRN Pain , Severe (7-10) Lisinopril 20 mg 07/09/20 10:00 07/12/20 09:23 Lisinopril 20 Mg Tab PO 20 mg QDAY KRISTY Administration Methylprednisolone Sodium Succinate 40 mg 07/10/20 16:00 07/13/20 05:48 Methylprednisolone Sod Succinate 40 Mg/1 Ml Inj IV 40 mg Q8HR KRISTY Administration Ondansetron HCl 4 mg 07/08/20 22:54 Ondansetron 4 Mg/2 Ml Inj IV Q8H PRN Nausea And Vomiting Oxycodone/Acetaminophen 1 tab 07/08/20 22:54 Oxycodone /Acetaminophen 5-325mg Tab PO Q6H PRN Pain, Moderate (4-6) Sodium Chloride 10 ml 07/08/20 23:00 07/12/20 21:27 Sodium Chloride 0.9% 10 Ml Flush Syringe IV 10 ml BID KRISTY Administration Sodium Chloride 10 ml 07/08/20 22:54 Sodium Chloride 0.9% 10 Ml Flush Syringe IV PRN PRN LINE FLUSH
[2020-07-13] MEDS: CLOPIDOGREL 75 MG TAB PO SCH (09:56)
[2020-07-13] MEDS: carvediloL 12.5 MG TAB PO SCH ×2 (09:56→21:46)
[2020-07-13] MEDS: ENOXAPARIN 40 MG/0.4 ML INJ SUB-Q SCH (09:57)
[2020-07-13] MEDS: LISINOPRIL 20 MG TAB PO SCH (09:57)
[2020-07-13] MEDS: amLODIPine 10 MG TAB PO SCH (09:57)
[2020-07-13] MEDS: hydroCHLOROthiazide 25 MG TAB PO SCH (09:57)
[2020-07-13] MEDS: ASPIRIN EC 81 MG TAB PO SCH (09:57)
[2020-07-13] MEDS: FAMOTIDINE 20 MG TAB PO SCH ×2 (09:57→21:46)
[2020-07-13] MEDS: hydrALAZINE 20 MG/1 ML INJ IV PRN (21:44)
[2020-07-14] MEDS: methylPREDNISolone Sod Succinate 40 MG/1 ML INJ IV SCH ×3 (05:18→22:07)
[2020-07-14] MEDS: hydrALAZINE 25 MG TAB PO SCH ×4 (05:18→22:07)
[2020-07-14] MEDS: ALBUTEROL 2.5 MG/3 ML NEBU IH SCH ×3 (08:50→20:41)
[2020-07-14] MEDS: ARFORMOTEROL 15 MCG/2 ML NEBU IH SCH ×2 (08:50→20:41)
[2020-07-14] MEDS: BUDESONIDE 0.5 MG/2 ML NEBU IH SCH ×2 (08:55→20:41)
[2020-07-14] MEDS: ENOXAPARIN 40 MG/0.4 ML INJ SUB-Q SCH (10:50)
[2020-07-14] MEDS: ASPIRIN EC 81 MG TAB PO SCH (10:50)
[2020-07-14] MEDS: FAMOTIDINE 20 MG TAB PO SCH ×2 (10:51→22:07)
[2020-07-14] MEDS: LISINOPRIL 20 MG TAB PO SCH (10:52)
[2020-07-14] MEDS: CLOPIDOGREL 75 MG TAB PO SCH (10:53)
[2020-07-14] MEDS: hydroCHLOROthiazide 25 MG TAB PO SCH (10:53)
[2020-07-14] MEDS: carvediloL 12.5 MG TAB PO SCH ×2 (10:53→22:07)
[2020-07-14] MEDS: amLODIPine 10 MG TAB PO SCH (10:53)
--- NOTE | 2020-07-14 13:39 | Progress Note ---
Assessment and Plan Assessment and plan: #CVA Echocardiogram - negative bubble study. 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 Vascular surgery recommends outpatient follow up with Dr Devaughn Wyatt in [facility].. 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 Vascular recommends addition of plavix (added) Continue statins #HTN Continue BP medications #HLD Continue lipitor 40 mg daily #Asthma Albuterol #Morbid obesity Diet and exercise #DVT ppx - heparin #Disposition Needs skilled vs acute rehab History Interval history: 84-year-old female with past medical history of hypertension comes in for difficulty talking and right upper extremity weakness. Patient unable to tell the exact timeline. Patient states her difficulty talking is improved. Right upper extremity weakness persists.. Patient says the right lower extremity strength is normal. And patient is able to walk. No syncope. No seizures. No past cerebrovascular accidents. No TIAs in the past. No chest pain. Patient has a history of hypertension and hyperlipidemia and asthma. No fever or chills. No recent exposure to coronavirus. Patient states the symptoms were started 48 to 72 hours before. Hospital course 07/09. MRI brain shows acute stroke involving the left middle cerebral artery region. Neurology consulted. Patient is on aspirin and statins. 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 Vascular surgery is been consulted. She complains of right-sided arm weakness. Has been seen by physical therapy who recommends placement. 07/10. [place] and examined patient at bedside. Has slurred speech which seems unchanged. Has some right sided weakness as well. Vascular surgery evaluated patient. She will need to see Dr Devaughn Wyatt in [facility] after discharge. Vascular recommended addition of plavix for now. Continue aspirin and statins. She will continue PT. She needs placement. Discussed with patients daughter. 07/11. Awaiting placement. Continue aspirin and plan. Possible DC today. Awaiting insurance authorization. 07/12. Still waiting for insurance authorization. No new complaints. Getting PT 07/13. No change in neurological condition. Awaiting insurance auth. 07/14. Awaiting placement. Has no complaints. Hospitalist Physical - Physical exam Narrative exam: VITAL SIGNS: Reviewed. GENERAL: Awake HEAD: No signs of head trauma. EYES: Pupils are equal. Extraocular motions intact. MOUTH: Oropharynx is normal. NECK: No adenopathy, no JVD. CHEST: Chest with diminished breath sounds bilaterally. No wheezes, rales, or rhonchi. CARDIAC: normal S1 and S2, without murmurs, gallops, or rubs. ABDOMEN: Soft, non tender and non distended. No rebound or guarding, and no masses palpated. Bowel Sounds normal. MUSCULOSKELETAL: No edema NEUROLOGIC EXAM: Alert and oriented x3. Dysarthria. Right sided weakness - 3/5 right arm, 4/5 RLE SKIN: No obvious lesions - Constitutional Vitals: Temp Pulse Resp BP Pulse Ox 97.2 F L 64 18 125/74 98 07/14/20 12:17 07/14/20 12:17 07/14/20 12:17 07/14/20 12:17 07/14/20 12:17 General appearance: Present: other (Occasional word searching) HEART Score - HEART Score Age: > 65 Risk factors: 1-2 risk factors Troponin: Troponin T < 0.010 ng/mL (0.00-0.029) 07/08/20 10:58 Troponin: < normal limit - Critical Actions Critical Actions: 0-3 pts:0.9-1.7%risk of adverse cardiac event.Candidate for discharge Results - Labs CBC & Chem 7: 07/10/20 05:23 07/10/20 05:23 Labs: Laboratory Last Values WBC 7.3 K/mm3 (4.5-11.0) 07/10/20 05:23 RBC 4.84 M/mm3 (3.65-5.03) 07/10/20 05:23 Hgb 14.0 gm/dl (10.1-14.3) 07/10/20 05:23 Hct 42.3 % (30.3-42.9) 07/10/20 05:23 MCV 87 fl (79-97) 07/10/20 05:23 MCH 29 pg (28-32) 07/10/20 05:23 MCHC 33 % (30-34) 07/10/20 05:23 RDW 14.6 % (13.2-15.2) 07/10/20 05:23 Plt Count 122 K/mm3 (140-440) L 07/10/20 05:23 Lymph % (Auto) 23.2 % (13.4-35.0) 07/10/20 05:23 [place] % (Auto) 7.8 % (0.0-7.3) H 07/10/20 05:23 Eos % (Auto) 2.1 % (0.0-4.3) 07/10/20 05:23 Baso % (Auto) 0.7 % (0.0-1.8) 07/10/20 05:23 Lymph # (Auto) 1.7 K/mm3 (1.2-5.4) 07/10/20 05:23 [place] # (Auto) 0.6 K/mm3 (0.0-0.8) 07/10/20 05:23 Eos # (Auto) 0.2 K/mm3 (0.0-0.4) 07/10/20 05:23 Baso # (Auto) 0.1 K/mm3 (0.0-0.1) 07/10/20 05:23 Seg Neutrophils % 66.2 % (40.0-70.0) 07/10/20 05:23 Seg Neutrophils # 4.8 K/mm3 (1.8-7.7) 07/10/20 05:23 PT 13.3 Sec. (12.2-14.9) 07/08/20 10:58 INR 1.02 (0.87-1.13) 07/08/20 10:58 APTT 27.5 Sec. (24.2-36.6) 07/08/20 10:58 Thrombin Time 17.1 Sec. (15.1-19.6) 07/08/20 10:58 Sodium 140 mmol/L (137-145) 07/10/20 05:23 Potassium 3.8 mmol/L (3.6-5.0) 07/10/20 05:23 Chloride 104.2 mmol/L (98-107) 07/10/20 05:23 Carbon Dioxide 26 mmol/L (22-30) 07/10/20 05:23 Anion Gap 14 mmol/L 07/10/20 05:23 BUN 14 mg/dL (7-17) 07/10/20 05:23 Creatinine 1.1 mg/dL (0.6-1.2) 07/10/20 05:23 Estimated GFR 58 ml/min 07/10/20 05:23 BUN/Creatinine Ratio 13 % 07/10/20 05:23 Glucose 102 mg/dL (65-100) H 07/10/20 05:23 Hemoglobin A1c 5.7 % (4-6) 07/09/20 05:19 Calcium 8.6 mg/dL (8.4-10.2) 07/10/20 05:23 Total Bilirubin 0.50 mg/dL (0.1-1.2) 07/10/20 05:23 AST 30 units/L (5-40) 07/10/20 05:23 ALT 11 units/L (7-56) 07/10/20 05:23 Alkaline Phosphatase 85 units/L (35-129) 07/10/20 05:23 Total Creatine Kinase 626 units/L (30-135) H 07/10/20 05:23 CK-MB (CK-2) 9.3 ng/mL (0.0-4.0) H 07/08/20 10:58 CK-MB (CK-2) Rel Index 0.6 (0-4) 07/08/20 10:58 Troponin T < 0.010 ng/mL (0.00-0.029) 07/08/20 10:58 Total Protein 6.6 g/dL (6.3-8.2) 07/10/20 05:23 Albumin 3.8 g/dL (3.9-5) L 07/10/20 05:23 Albumin/Globulin Ratio 1.4 % 07/10/20 05:23 Triglycerides 64 mg/dL (2-149) 07/09/20 05:19 Cholesterol 178 mg/dL (50-199) 07/09/20 05:19 LDL Cholesterol Direct 107 mg/dL (50-130) 07/09/20 05:19 HDL Cholesterol 58 mg/dL (40-59) 07/09/20 05:19 Cholesterol/HDL Ratio 3.06 % 07/09/20 05:19 Shin/IV: Voiding Method External Female Catheter Active Medications - Current Medications Current Medications: Generic Name Dose Route Start Last Admin Trade Name Freq PRN Reason Stop Dose Admin Acetaminophen 650 mg 07/08/20 22:54 Acetaminophen 325 Mg Tab PO Q4H PRN Pain MILD(1-3)/Fever >100.5/WHITESIDE Albuterol 2.5 mg 07/12/20 08:00 07/13/20 23:40 Albuterol 2.5 Mg/3 Ml Nebu IH 2.5 mg TIDRT KRISTY Administration Amlodipine Besylate 10 mg 07/10/20 14:00 07/14/20 10:53 Amlodipine 10 Mg Tab PO 10 mg QDAY KRISTY Administration Arformoterol Tartrate 15 mcg 07/09/20 08:00 07/13/20 23:40 Arformoterol 15 Mcg/2 Ml Nebu IH 15 mcg Q12HRT KRISTY Administration Aspirin 81 mg 07/11/20 10:00 07/14/20 10:50 Aspirin Ec 81 Mg Tab PO 81 mg QDAY KRISTY Administration Atorvastatin Calcium 40 mg 07/09/20 22:00 07/13/20 21:46 Atorvastatin 40 Mg Tab PO 40 mg QHS KRISTY Administration Budesonide 0.5 mg 07/09/20 08:00 07/13/20 23:40 Budesonide 0.5 Mg/2 Ml Nebu IH 0.5 mg Q12HRT KRISTY Administration Carvedilol 12.5 mg 07/08/20 23:00 07/14/20 10:53 Carvedilol 12.5 Mg Tab PO 12.5 mg BID KRISTY Administration Clopidogrel Bisulfate 75 mg 07/10/20 14:00 07/14/20 10:53 Clopidogrel 75 Mg Tab PO 75 mg QDAY KRISTY Administration Enoxaparin Sodium 40 mg 07/10/20 14:00 07/14/20 10:50 Enoxaparin 40 Mg/0.4 Ml Inj SUB-Q 40 mg QDAY KRISTY Administration Protocol Famotidine 20 mg 07/10/20 10:00 07/14/20 10:51 Famotidine 20 Mg Tab PO 20 mg BID KRISTY Administration Hydralazine HCl 10 mg 07/10/20 13:51 07/13/20 21:44 Hydralazine 20 Mg/1 Ml Inj IV 10 mg Q6H PRN Administration SBP >180 or DBP >110 Hydralazine HCl 50 mg 07/13/20 22:00 07/14/20 05:18 Hydralazine 25 Mg Tab PO 50 mg Q8HR KRISTY Administration Hydrochlorothiazide 25 mg 07/09/20 10:00 07/14/20 10:53 Hydrochlorothiazide 25 Mg Tab PO 25 mg QDAY KRISTY Administration Hydromorphone HCl 0.5 mg 07/08/20 22:54 Hydromorphone 1 Mg/1 Ml Inj IV Q3H PRN Pain , Severe (7-10) Lisinopril 20 mg 07/09/20 10:00 07/14/20 10:52 Lisinopril 20 Mg Tab PO 20 mg QDAY KRISTY Administration Methylprednisolone Sodium Succinate 40 mg 07/10/20 16:00 07/14/20 05:18 Methylprednisolone Sod Succinate 40 Mg/1 Ml Inj IV 40 mg Q8HR KRISTY Administration Ondansetron HCl 4 mg 07/08/20 22:54 Ondansetron 4 Mg/2 Ml Inj IV Q8H PRN Nausea And Vomiting Oxycodone/Acetaminophen 1 tab 07/08/20 22:54 Oxycodone /Acetaminophen 5-325mg Tab PO Q6H PRN Pain, Moderate (4-6) Sodium Chloride 10 ml 07/08/20 23:00 07/13/20 21:46 Sodium Chloride 0.9% 10 Ml Flush Syringe IV 10 ml BID KRISTY Administration Sodium Chloride 10 ml 07/08/20 22:54 Sodium Chloride 0.9% 10 Ml Flush Syringe IV PRN PRN LINE FLUSH
[2020-07-15] MEDS: hydrALAZINE 25 MG TAB PO SCH ×3 (06:10→22:24)
[2020-07-15] MEDS: methylPREDNISolone Sod Succinate 40 MG/1 ML INJ IV SCH ×3 (06:10→22:25)
[2020-07-15] MEDS: amLODIPine 10 MG TAB PO SCH (09:43)
[2020-07-15] MEDS: CLOPIDOGREL 75 MG TAB PO SCH (09:43)
[2020-07-15] MEDS: FAMOTIDINE 20 MG TAB PO SCH ×2 (09:43→22:25)
[2020-07-15] MEDS: ASPIRIN EC 81 MG TAB PO SCH (09:43)
[2020-07-15] MEDS: hydroCHLOROthiazide 25 MG TAB PO SCH (09:43)
[2020-07-15] MEDS: ENOXAPARIN 40 MG/0.4 ML INJ SUB-Q SCH (09:43)
[2020-07-15] MEDS: LISINOPRIL 20 MG TAB PO SCH (09:44)
[2020-07-15] MEDS: carvediloL 12.5 MG TAB PO SCH ×2 (09:44→22:25)
--- NOTE | 2020-07-15 11:01 | Progress Note ---
Assessment and Plan Assessment and plan: #CVA Echocardiogram - negative bubble study. 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 Vascular surgery recommends outpatient follow up with Dr Devaughn Wyatt in [facility].. 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 Vascular recommends addition of plavix (added) Continue statins Needs placement to continue PT #HTN Continue BP medications #HLD Continue lipitor 40 mg daily #Asthma Albuterol #Morbid obesity Diet and exercise #DVT ppx - heparin #Disposition Needs skilled vs acute rehab History Interval history: 84-year-old female with past medical history of hypertension comes in for difficulty talking and right upper extremity weakness. Patient unable to tell the exact timeline. Patient states her difficulty talking is improved. Right upper extremity weakness persists.. Patient says the right lower extremity strength is normal. And patient is able to walk. No syncope. No seizures. No past cerebrovascular accidents. No TIAs in the past. No chest pain. Patient has a history of hypertension and hyperlipidemia and asthma. No fever or chills. No recent exposure to coronavirus. Patient states the symptoms were started 48 to 72 hours before. Hospital course 07/09. MRI brain shows acute stroke involving the left middle cerebral artery region. Neurology consulted. Patient is on aspirin and statins. Ultrasound c arotid shows more than 70% stenosis of the left ICA. Vascular surgery is been consulted. She complains of right-sided arm weakness. Has been seen by physical therapy who recommends placement. 07/10. [place] and examined patient at bedside. Has slurred speech which seems unchanged. Has some right sided weakness as well. Vascular surgery evaluated patient. She will need to see Dr Devaughn Wyatt in [facility] after discharge. Vascular recommended addition of plavix for now. Continue aspirin and statins. She will continue PT. She needs placement. Discussed with patients daughter. 07/11. Awaiting placement. Continue aspirin and plan. Possible DC today. Awaiting insurance authorization. 07/12. Still waiting for insurance authorization. No new complaints. Getting PT 07/13. No change in neurological condition. Awaiting insurance auth. 07/14. Awaiting placement. Has no complaints. 07/15. No new complaints. Awaiting placement. Hospitalist Physical - Physical exam Narrative exam: VITAL SIGNS: Reviewed. GENERAL: Awake HEAD: No signs of head trauma. EYES: Pupils are equal. Extraocular motions intact. MOUTH: Oropharynx is normal. NECK: No adenopathy, no JVD. CHEST: Chest with diminished breath sounds bilaterally. No wheezes, rales, or rhonchi. CARDIAC: normal S1 and S2, without murmurs, gallops, or rubs. ABDOMEN: Soft, non tender and non distended. No rebound or guarding, and no masses palpated. Bowel Sounds normal. MUSCULOSKELETAL: No edema NEUROLOGIC EXAM: Alert and oriented x3. Dysarthria. Right sided weakness - 3/5 right arm, 4/5 RLE SKIN: No obvious lesions - Constitutional Vitals: Temp Pulse Resp BP Pulse Ox 98.5 F 61 17 145/75 97 07/15/20 09:06 07/15/20 09:49 07/15/20 09:49 07/15/20 09:44 07/15/20 09:49 General appearance: Present: other (Occasional word searching) HEART Score - HEART Score Age: > 65 Risk factors: 1-2 risk factors Troponin: Troponin T < 0.010 ng/mL (0.00-0.029) 07/08/20 10:58 Troponin: < normal limit - Critical Actions Critical Actions: 0-3 pts:0.9-1.7%risk of adverse cardiac event.Candidate for discharge Results - Labs CBC & Chem 7: 07/10/20 05:23 07/10/20 05:23 Labs: Laboratory Last Values WBC 7.3 K/mm3 (4.5-11.0) 07/10/20 05:23 RBC 4.84 M/mm3 (3.65-5.03) 07/10/20 05:23 Hgb 14.0 gm/dl (10.1-14.3) 07/10/20 05:23 Hct 42.3 % (30.3-42.9) 07/10/20 05:23 MCV 87 fl (79-97) 07/10/20 05:23 MCH 29 pg (28-32) 07/10/20 05:23 MCHC 33 % (30-34) 07/10/20 05:23 RDW 14.6 % (13.2-15.2) 07/10/20 05:23 Plt Count 122 K/mm3 (140-440) L 07/10/20 05:23 Lymph % (Auto) 23.2 % (13.4-35.0) 07/10/20 05:23 [place] % (Auto) 7.8 % (0.0-7.3) H 07/10/20 05:23 Eos % (Auto) 2.1 % (0.0-4.3) 07/10/20 05:23 Baso % (Auto) 0.7 % (0.0-1.8) 07/10/20 05:23 Lymph # (Auto) 1.7 K/mm3 (1.2-5.4) 07/10/20 05:23 [place] # (Auto) 0.6 K/mm3 (0.0-0.8) 07/10/20 05:23 Eos # (Auto) 0.2 K/mm3 (0.0-0.4) 07/10/20 05:23 Baso # (Auto) 0.1 K/mm3 (0.0-0.1) 07/10/20 05:23 Seg Neutrophils % 66.2 % (40.0-70.0) 07/10/20 05:23 Seg Neutrophils # 4.8 K/mm3 (1.8-7.7) 07/10/20 05:23 PT 13.3 Sec. (12.2-14.9) 07/08/20 10:58 INR 1.02 (0.87-1.13) 07/08/20 10:58 APTT 27.5 Sec. (24.2-36.6) 07/08/20 10:58 Thrombin Time 17.1 Sec. (15.1-19.6) 07/08/20 10:58 Sodium 140 mmol/L (137-145) 07/10/20 05:23 Potassium 3.8 mmol/L (3.6-5.0) 07/10/20 05:23 Chloride 104.2 mmol/L (98-107) 07/10/20 05:23 Carbon Dioxide 26 mmol/L (22-30) 07/10/20 05:23 Anion Gap 14 mmol/L 07/10/20 05:23 BUN 14 mg/dL (7-17) 07/10/20 05:23 Creatinine 1.1 mg/dL (0.6-1.2) 07/10/20 05:23 Estimated GFR 58 ml/min 07/10/20 05:23 BUN/Creatinine Ratio 13 % 07/10/20 05:23 Glucose 102 mg/dL (65-100) H 07/10/20 05:23 Hemoglobin A1c 5.7 % (4-6) 07/09/20 05:19 Calcium 8.6 mg/dL (8.4-10.2) 07/10/20 05:23 Total Bilirubin 0.50 mg/dL (0.1-1.2) 07/10/20 05:23 AST 30 units/L (5-40) 07/10/20 05:23 ALT 11 units/L (7-56) 07/10/20 05:23 Alkaline Phosphatase 85 units/L (35-129) 07/10/20 05:23 Total Creatine Kinase 626 units/L (30-135) H 07/10/20 05:23 CK-MB (CK-2) 9.3 ng/mL (0.0-4.0) H 07/08/20 10:58 CK-MB (CK-2) Rel Index 0.6 (0-4) 07/08/20 10:58 Troponin T < 0.010 ng/mL (0.00-0.029) 07/08/20 10:58 Total Protein 6.6 g/dL (6.3-8.2) 07/10/20 05:23 Albumin 3.8 g/dL (3.9-5) L 07/10/20 05:23 Albumin/Globulin Ratio 1.4 % 07/10/20 05:23 Triglycerides 64 mg/dL (2-149) 07/09/20 05:19 Cholesterol 178 mg/dL (50-199) 07/09/20 05:19 LDL Cholesterol Direct 107 mg/dL (50-130) 07/09/20 05:19 HDL Cholesterol 58 mg/dL (40-59) 07/09/20 05:19 Cholesterol/HDL Ratio 3.06 % 07/09/20 05:19 Shin/IV: Voiding Method External Female Catheter Active Medications - Current Medications Current Medications: Generic Name Dose Route Start Last Admin Trade Name Freq PRN Reason Stop Dose Admin Acetaminophen 650 mg 07/08/20 22:54 07/15/20 04:30 Acetaminophen 325 Mg Tab PO 650 mg Q4H PRN Administration Pain MILD(1-3)/Fever >100.5/WHITESIDE Albuterol 2.5 mg 07/12/20 08:00 07/14/20 20:41 Albuterol 2.5 Mg/3 Ml Nebu IH 2.5 mg TIDRT KRISTY Administration Amlodipine Besylate 10 mg 07/10/20 14:00 07/15/20 09:43 Amlodipine 10 Mg Tab PO 10 mg QDAY KRISTY Administration Arformoterol Tartrate 15 mcg 07/09/20 08:00 07/14/20 20:41 Arformoterol 15 Mcg/2 Ml Nebu IH 15 mcg Q12HRT KRISTY Administration Aspirin 81 mg 07/11/20 10:00 07/15/20 09:43 Aspirin Ec 81 Mg Tab PO 81 mg QDAY KRISTY Administration Atorvastatin Calcium 40 mg 07/09/20 22:00 07/14/20 22:07 Atorvastatin 40 Mg Tab PO 40 mg QHS KRISTY Administration Budesonide 0.5 mg 07/09/20 08:00 07/14/20 20:41 Budesonide 0.5 Mg/2 Ml Nebu IH 0.5 mg Q12HRT KRISTY Administration Carvedilol 12.5 mg 07/08/20 23:00 07/15/20 09:44 Carvedilol 12.5 Mg Tab PO 12.5 mg BID KRISTY Administration Clopidogrel Bisulfate 75 mg 07/10/20 14:00 07/15/20 09:43 Clopidogrel 75 Mg Tab PO 75 mg QDAY KRISTY Administration Enoxaparin Sodium 40 mg 07/10/20 14:00 07/15/20 09:43 Enoxaparin 40 Mg/0.4 Ml Inj SUB-Q 40 mg QDAY KRISTY Administration Protocol Famotidine 20 mg 07/10/20 10:00 07/15/20 09:43 Famotidine 20 Mg Tab PO 20 mg BID KRISTY Administration Hydralazine HCl 10 mg 07/10/20 13:51 07/13/20 21:44 Hydralazine 20 Mg/1 Ml Inj IV 10 mg Q6H PRN Administration SBP >180 or DBP >110 Hydralazine HCl 50 mg 07/13/20 22:00 07/15/20 06:10 Hydralazine 25 Mg Tab PO 50 mg Q8HR KRISTY Administration Hydrochlorothiazide 25 mg 07/09/20 10:00 07/15/20 09:43 Hydrochlorothiazide 25 Mg Tab PO 25 mg QDAY KRISTY Administration Hydromorphone HCl 0.5 mg 07/08/20 22:54 Hydromorphone 1 Mg/1 Ml Inj IV Q3H PRN Pain , Severe (7-10) Lisinopril 20 mg 07/09/20 10:00 07/15/20 09:44 Lisinopril 20 Mg Tab PO 20 mg QDAY KRISTY Administration Methylprednisolone Sodium Succinate 40 mg 07/10/20 16:00 07/15/20 06:10 Methylprednisolone Sod Succinate 40 Mg/1 Ml Inj IV 40 mg Q8HR KRISTY Administration Ondansetron HCl 4 mg 07/08/20 22:54 Ondansetron 4 Mg/2 Ml Inj IV Q8H PRN Nausea And Vomiting Oxycodone/Acetaminophen 1 tab 07/08/20 22:54 Oxycodone /Acetaminophen 5-325mg Tab PO Q6H PRN Pain, Moderate (4-6) Sodium Chloride 10 ml 07/08/20 23:00 07/15/20 09:44 Sodium Chloride 0.9% 10 Ml Flush Syringe IV 10 ml BID KRISTY Administration Sodium Chloride 10 ml 07/08/20 22:54 Sodium Chloride 0.9% 10 Ml Flush Syringe IV PRN PRN LINE FLUSH
[2020-07-16] MEDS: methylPREDNISolone Sod Succinate 40 MG/1 ML INJ IV SCH ×3 (05:56→21:43)
[2020-07-16] MEDS: hydrALAZINE 25 MG TAB PO SCH ×3 (05:56→21:43)
[2020-07-16] MEDS: ALBUTEROL 2.5 MG/3 ML NEBU IH SCH ×5 (08:02→20:26)
[2020-07-16] MEDS: BUDESONIDE 0.5 MG/2 ML NEBU IH SCH ×3 (08:02→20:26)
[2020-07-16] MEDS: ARFORMOTEROL 15 MCG/2 ML NEBU IH SCH ×3 (08:05→20:26)
[2020-07-16] MEDS: hydroCHLOROthiazide 25 MG TAB PO SCH (09:31)
[2020-07-16] MEDS: FAMOTIDINE 20 MG TAB PO SCH ×2 (09:31→21:43)
[2020-07-16] MEDS: LISINOPRIL 20 MG TAB PO SCH (09:31)
[2020-07-16] MEDS: ASPIRIN EC 81 MG TAB PO SCH (09:31)
[2020-07-16] MEDS: CLOPIDOGREL 75 MG TAB PO SCH (09:31)
[2020-07-16] MEDS: carvediloL 12.5 MG TAB PO SCH ×2 (09:31→21:43)
[2020-07-16] MEDS: ENOXAPARIN 40 MG/0.4 ML INJ SUB-Q SCH (09:32)
[2020-07-16] MEDS: amLODIPine 10 MG TAB PO SCH (09:32)
--- NOTE | 2020-07-16 12:01 | Progress Note ---
Assessment and Plan Assessment and plan: #CVA Echocardiogram - negative bubble study. 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 Vascular surgery recommends outpatient follow up with Dr Devaughn Wyatt in [facility].. 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 Vascular recommends addition of plavix (added) Continue statins Needs placement to continue PT #HTN Continue BP medications #HLD Continue lipitor 40 mg daily #Asthma Albuterol #Morbid obesity Diet and exercise #DVT ppx - heparin #Disposition Needs skilled vs acute rehab History Interval history: 84-year-old female with past medical history of hypertension comes in for difficulty talking and right upper extremity weakness. Patient unable to tell the exact timeline. Patient states her difficulty talking is improved. Right upper extremity weakness persists.. Patient says the right lower extremity strength is normal. And patient is able to walk. No syncope. No seizures. No past cerebrovascular accidents. No TIAs in the past. No chest pain. Patient has a history of hypertension and hyperlipidemia and asthma. No fever or chills. No recent exposure to coronavirus. Patient states the symptoms were started 48 to 72 hours before. Hospital course 07/09. MRI brain shows acute stroke involving the left middle cerebral artery region. Neurology consulted. Patient is on aspirin and statins. Ultrasound c arotid shows more than 70% stenosis of the left ICA. Vascular surgery is been consulted. She complains of right-sided arm weakness. Has been seen by physical therapy who recommends placement. 07/10. [place] and examined patient at bedside. Has slurred speech which seems unchanged. Has some right sided weakness as well. Vascular surgery evaluated patient. She will need to see Dr Devaughn Wyatt in [facility] after discharge. Vascular recommended addition of plavix for now. Continue aspirin and statins. She will continue PT. She needs placement. Discussed with patients daughter. 07/11. Awaiting placement. Continue aspirin and plan. Possible DC today. Awaiting insurance authorization. 07/12. Still waiting for insurance authorization. No new complaints. Getting PT 07/13. No change in neurological condition. Awaiting insurance auth. 07/14. Awaiting placement. Has no complaints. 07/15. No new complaints. Awaiting placement. 07/16. Awaiting placement. Hospitalist Physical - Physical exam Narrative exam: VITAL SIGNS: Reviewed. GENERAL: Awake HEAD: No signs of head trauma. EYES: Pupils are equal. Extraocular motions intact. MOUTH: Oropharynx is normal. NECK: No adenopathy, no JVD. CHEST: Chest with diminished breath sounds bilaterally. No wheezes, rales, or rhonchi. CARDIAC: normal S1 and S2, without murmurs, gallops, or rubs. ABDOMEN: Soft, non tender and non distended. No rebound or guarding, and no masses palpated. Bowel Sounds normal. MUSCULOSKELETAL: No edema NEUROLOGIC EXAM: Alert and oriented x3. Dysarthria. Right sided weakness - 3/5 right arm, 4/5 RLE SKIN: No obvious lesions - Constitutional Vitals: Temp Pulse Resp BP Pulse Ox 97.6 F 66 18 149/78 98 07/16/20 08:01 07/16/20 10:00 07/16/20 10:00 07/16/20 09:32 07/16/20 10:00 General appearance: Present: other (Occasional word searching) HEART Score - HEART Score Age: > 65 Risk factors: 1-2 risk factors Troponin: Troponin T < 0.010 ng/mL (0.00-0.029) 07/08/20 10:58 Troponin: < normal limit - Critical Actions Critical Actions: 0-3 pts:0.9-1.7%risk of adverse cardiac event.Candidate for discharge Results - Labs CBC & Chem 7: 07/10/20 05:23 07/10/20 05:23 Labs: Laboratory Last Values WBC 7.3 K/mm3 (4.5-11.0) 07/10/20 05:23 RBC 4.84 M/mm3 (3.65-5.03) 07/10/20 05:23 Hgb 14.0 gm/dl (10.1-14.3) 07/10/20 05:23 Hct 42.3 % (30.3-42.9) 07/10/20 05:23 MCV 87 fl (79-97) 07/10/20 05:23 MCH 29 pg (28-32) 07/10/20 05:23 MCHC 33 % (30-34) 07/10/20 05:23 RDW 14.6 % (13.2-15.2) 07/10/20 05:23 Plt Count 122 K/mm3 (140-440) L 07/10/20 05:23 Lymph % (Auto) 23.2 % (13.4-35.0) 07/10/20 05:23 [place] % (Auto) 7.8 % (0.0-7.3) H 07/10/20 05:23 Eos % (Auto) 2.1 % (0.0-4.3) 07/10/20 05:23 Baso % (Auto) 0.7 % (0.0-1.8) 07/10/20 05:23 Lymph # (Auto) 1.7 K/mm3 (1.2-5.4) 07/10/20 05:23 [place] # (Auto) 0.6 K/mm3 (0.0-0.8) 07/10/20 05:23 Eos # (Auto) 0.2 K/mm3 (0.0-0.4) 07/10/20 05:23 Baso # (Auto) 0.1 K/mm3 (0.0-0.1) 07/10/20 05:23 Seg Neutrophils % 66.2 % (40.0-70.0) 07/10/20 05:23 Seg Neutrophils # 4.8 K/mm3 (1.8-7.7) 07/10/20 05:23 PT 13.3 Sec. (12.2-14.9) 07/08/20 10:58 INR 1.02 (0.87-1.13) 07/08/20 10:58 APTT 27.5 Sec. (24.2-36.6) 07/08/20 10:58 Thrombin Time 17.1 Sec. (15.1-19.6) 07/08/20 10:58 Sodium 140 mmol/L (137-145) 07/10/20 05:23 Potassium 3.8 mmol/L (3.6-5.0) 07/10/20 05:23 Chloride 104.2 mmol/L (98-107) 07/10/20 05:23 Carbon Dioxide 26 mmol/L (22-30) 07/10/20 05:23 Anion Gap 14 mmol/L 07/10/20 05:23 BUN 14 mg/dL (7-17) 07/10/20 05:23 Creatinine 1.1 mg/dL (0.6-1.2) 07/10/20 05:23 Estimated GFR 58 ml/min 07/10/20 05:23 BUN/Creatinine Ratio 13 % 07/10/20 05:23 Glucose 102 mg/dL (65-100) H 07/10/20 05:23 Hemoglobin A1c 5.7 % (4-6) 07/09/20 05:19 Calcium 8.6 mg/dL (8.4-10.2) 07/10/20 05:23 Total Bilirubin 0.50 mg/dL (0.1-1.2) 07/10/20 05:23 AST 30 units/L (5-40) 07/10/20 05:23 ALT 11 units/L (7-56) 07/10/20 05:23 Alkaline Phosphatase 85 units/L (35-129) 07/10/20 05:23 Total Creatine Kinase 626 units/L (30-135) H 07/10/20 05:23 CK-MB (CK-2) 9.3 ng/mL (0.0-4.0) H 07/08/20 10:58 CK-MB (CK-2) Rel Index 0.6 (0-4) 07/08/20 10:58 Troponin T < 0.010 ng/mL (0.00-0.029) 07/08/20 10:58 Total Protein 6.6 g/dL (6.3-8.2) 07/10/20 05:23 Albumin 3.8 g/dL (3.9-5) L 07/10/20 05:23 Albumin/Globulin Ratio 1.4 % 07/10/20 05:23 Triglycerides 64 mg/dL (2-149) 07/09/20 05:19 Cholesterol 178 mg/dL (50-199) 07/09/20 05:19 LDL Cholesterol Direct 107 mg/dL (50-130) 07/09/20 05:19 HDL Cholesterol 58 mg/dL (40-59) 07/09/20 05:19 Cholesterol/HDL Ratio 3.06 % 07/09/20 05:19 Shin/IV: Voiding Method External Female Catheter Active Medications - Current Medications Current Medications: Generic Name Dose Route Start Last Admin Trade Name Freq PRN Reason Stop Dose Admin Acetaminophen 650 mg 07/08/20 22:54 07/15/20 04:30 Acetaminophen 325 Mg Tab PO 650 mg Q4H PRN Administration Pain MILD(1-3)/Fever >100.5/WHITESIDE Albuterol 2.5 mg 07/12/20 08:00 07/16/20 08:08 Albuterol 2.5 Mg/3 Ml Nebu IH Not Given TIDRT KRISTY Amlodipine Besylate 10 mg 07/10/20 14:00 07/16/20 09:32 Amlodipine 10 Mg Tab PO 10 mg QDAY KRISTY Administration Arformoterol Tartrate 15 mcg 07/09/20 08:00 07/16/20 08:07 Arformoterol 15 Mcg/2 Ml Nebu IH 15 mcg Q12HRT KRISTY Administration Aspirin 81 mg 07/11/20 10:00 07/16/20 09:31 Aspirin Ec 81 Mg Tab PO 81 mg QDAY KRISTY Administration Atorvastatin Calcium 40 mg 07/09/20 22:00 07/15/20 22:25 Atorvastatin 40 Mg Tab PO 40 mg QHS KRISTY Administration Budesonide 0.5 mg 07/09/20 08:00 07/16/20 08:06 Budesonide 0.5 Mg/2 Ml Nebu IH Not Given Q12HRT KRISTY Carvedilol 12.5 mg 07/08/20 23:00 07/16/20 09:31 Carvedilol 12.5 Mg Tab PO 12.5 mg BID KRISTY Administration Clopidogrel Bisulfate 75 mg 07/10/20 14:00 07/16/20 09:31 Clopidogrel 75 Mg Tab PO 75 mg QDAY KRISTY Administration Enoxaparin Sodium 40 mg 07/10/20 14:00 07/16/20 09:32 Enoxaparin 40 Mg/0.4 Ml Inj SUB-Q 40 mg QDAY KRISTY Administration Protocol Famotidine 20 mg 07/10/20 10:00 07/16/20 09:31 Famotidine 20 Mg Tab PO 20 mg BID KRISTY Administration Hydralazine HCl 10 mg 07/10/20 13:51 07/13/20 21:44 Hydralazine 20 Mg/1 Ml Inj IV 10 mg Q6H PRN Administration SBP >180 or DBP >110 Hydralazine HCl 50 mg 07/13/20 22:00 07/16/20 05:56 Hydralazine 25 Mg Tab PO 50 mg Q8HR KRISTY Administration Hydrochlorothiazide 25 mg 07/09/20 10:00 07/16/20 09:31 Hydrochlorothiazide 25 Mg Tab PO 25 mg QDAY KRISTY Administration Hydromorphone HCl 0.5 mg 07/08/20 22:54 Hydromorphone 1 Mg/1 Ml Inj IV Q3H PRN Pain , Severe (7-10) Lisinopril 20 mg 07/09/20 10:00 07/16/20 09:31 Lisinopril 20 Mg Tab PO 20 mg QDAY KRISTY Administration Methylprednisolone Sodium Succinate 40 mg 07/10/20 16:00 07/16/20 05:56 Methylprednisolone Sod Succinate 40 Mg/1 Ml Inj IV 40 mg Q8HR KRISTY Administration Ondansetron HCl 4 mg 07/08/20 22:54 Ondansetron 4 Mg/2 Ml Inj IV Q8H PRN Nausea And Vomiting Oxycodone/Acetaminophen 1 tab 07/08/20 22:54 Oxycodone /Acetaminophen 5-325mg Tab PO Q6H PRN Pain, Moderate (4-6) Sodium Chloride 10 ml 07/08/20 23:00 07/16/20 09:32 Sodium Chloride 0.9% 10 Ml Flush Syringe IV 10 ml BID KRISTY Administration Sodium Chloride 10 ml 07/08/20 22:54 Sodium Chloride 0.9% 10 Ml Flush Syringe IV PRN PRN LINE FLUSH Nutrition/Malnutrition Assess - Dietary Evaluation Nutrition/Malnutrition Findings: Nutrition Notes Start: 07/16/20 07:35 Freq: Status: Active Protocol: Document 07/16/20 07:36 (Rec: 07/16/20 07:36 [email or web address]) Nutrition Notes Initial or Follow up Brief Note Subjective/Other Information Screen for LOS. Pt eating 100% of meals. Nutrition Intervention Revisit per MD consult or patient Sign Off request:
[2020-07-17] MEDS: hydrALAZINE 25 MG TAB PO SCH ×3 (05:49→22:56)
[2020-07-17] MEDS: methylPREDNISolone Sod Succinate 40 MG/1 ML INJ IV SCH ×3 (05:50→22:57)
[2020-07-17] MEDS: BUDESONIDE 0.5 MG/2 ML NEBU IH SCH ×2 (08:51→21:54)
[2020-07-17] MEDS: ALBUTEROL 2.5 MG/3 ML NEBU IH SCH ×3 (08:51→21:54)
[2020-07-17] MEDS: ARFORMOTEROL 15 MCG/2 ML NEBU IH SCH ×2 (08:51→21:59)
--- NOTE | 2020-07-17 09:24 | Progress Note ---
Assessment and Plan Assessment and plan: #CVA Echocardiogram - negative bubble study. 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 Vascular surgery recommends outpatient follow up with Dr Devaughn Wyatt in [facility].. 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 Vascular recommends addition of plavix (added) Continue statins Needs placement to continue PT #HTN Continue BP medications #HLD Continue lipitor 40 mg daily #Asthma Albuterol #Morbid obesity Diet and exercise #DVT ppx - heparin #Disposition Needs skilled vs acute rehab History Interval history: 84-year-old female with past medical history of hypertension comes in for difficulty talking and right upper extremity weakness. Patient unable to tell the exact timeline. Patient states her difficulty talking is improved. Right upper extremity weakness persists.. Patient says the right lower extremity strength is normal. And patient is able to walk. No syncope. No seizures. No past cerebrovascular accidents. No TIAs in the past. No chest pain. Patient has a history of hypertension and hyperlipidemia and asthma. No fever or chills. No recent exposure to coronavirus. Patient states the symptoms were started 48 to 72 hours before. Hospital course 07/09. MRI brain shows acute stroke involving the left middle cerebral artery region. Neurology consulted. Patient is on aspirin and statins. Ultrasound c arotid shows more than 70% stenosis of the left ICA. Vascular surgery is been consulted. She complains of right-sided arm weakness. Has been seen by physical therapy who recommends placement. 07/10. Saw and examined patient at bedside. Has slurred speech which seems unchanged. Has some right sided weakness as well. Vascular surgery evaluated patient. She will need to see Dr Devaughn Wyatt in [facility] after discharge. Vascular recommended addition of plavix for now. Continue aspirin and statins. She will continue PT. She needs placement. Discussed with patients daughter. 07/11. Awaiting placement. Continue aspirin and plan. Possible DC today. Awaiting insurance authorization. 07/12. Still waiting for insurance authorization. No new complaints. Getting PT 07/13. No change in neurological condition. Awaiting insurance auth. 07/14. Awaiting placement. Has no complaints. 07/15. No new complaints. Awaiting placement. 07/16. Awaiting placement. 07/17. Short summary - 84 year old F with a medical history of HTN admitted with slurred speech and difficulty talking. MRI showed acute CVA involinvg the left MCA area. Carotid imaging showed >70% stenosis of left ICA. Vascular surgery was consulted. Plavix was added. She will need to follow up with vascular surgery at discharge. She has right sided weakness and is getting PT. Her speech is slightly improved compared with admission. She is awaiting placement to a rehb/skilled nf. Hospitalist Physical - Physical exam Narrative exam: VITAL SIGNS: Reviewed. GENERAL: Awake HEAD: No signs of head trauma. EYES: Pupils are equal. Extraocular motions intact. MOUTH: Oropharynx is normal. NECK: No adenopathy, no JVD. CHEST: Chest with diminished breath sounds bilaterally. No wheezes, rales, or rhonchi. CARDIAC: normal S1 and S2, without murmurs, gallops, or rubs. ABDOMEN: Soft, non tender and non distended. No rebound or guarding, and no masses palpated. Bowel Sounds normal. MUSCULOSKELETAL: No edema NEUROLOGIC EXAM: Alert and oriented x3. Dysarthria. Right sided weakness - 3/5 right arm, 4/5 RLE SKIN: No obvious lesions - Constitutional Vitals: Temp Pulse Resp BP Pulse Ox 98.6 F 78 20 146/89 96 07/17/20 08:22 07/17/20 08:22 07/17/20 08:22 07/17/20 08:22 07/17/20 08:22 General appearance: Present: other (Occasional word searching) HEART Score - HEART Score Age: > 65 Risk factors: 1-2 risk factors Troponin: Troponin T < 0.010 ng/mL (0.00-0.029) 07/08/20 10:58 Troponin: < normal limit - Critical Actions Critical Actions: 0-3 pts:0.9-1.7%risk of adverse cardiac event.Candidate for discharge Results - Labs CBC & Chem 7: 07/10/20 05:23 07/10/20 05:23 Labs: Laboratory Last Values WBC 7.3 K/mm3 (4.5-11.0) 07/10/20 05:23 RBC 4.84 M/mm3 (3.65-5.03) 07/10/20 05:23 Hgb 14.0 gm/dl (10.1-14.3) 07/10/20 05:23 Hct 42.3 % (30.3-42.9) 07/10/20 05:23 MCV 87 fl (79-97) 07/10/20 05:23 MCH 29 pg (28-32) 07/10/20 05:23 MCHC 33 % (30-34) 07/10/20 05:23 RDW 14.6 % (13.2-15.2) 07/10/20 05:23 Plt Count 122 K/mm3 (140-440) L 07/10/20 05:23 Lymph % (Auto) 23.2 % (13.4-35.0) 07/10/20 05:23 [place] % (Auto) 7.8 % (0.0-7.3) H 07/10/20 05:23 Eos % (Auto) 2.1 % (0.0-4.3) 07/10/20 05:23 Baso % (Auto) 0.7 % (0.0-1.8) 07/10/20 05:23 Lymph # (Auto) 1.7 K/mm3 (1.2-5.4) 07/10/20 05:23 [place] # (Auto) 0.6 K/mm3 (0.0-0.8) 07/10/20 05:23 Eos # (Auto) 0.2 K/mm3 (0.0-0.4) 07/10/20 05:23 Baso # (Auto) 0.1 K/mm3 (0.0-0.1) 07/10/20 05:23 Seg Neutrophils % 66.2 % (40.0-70.0) 07/10/20 05:23 Seg Neutrophils # 4.8 K/mm3 (1.8-7.7) 07/10/20 05:23 PT 13.3 Sec. (12.2-14.9) 07/08/20 10:58 INR 1.02 (0.87-1.13) 07/08/20 10:58 APTT 27.5 Sec. (24.2-36.6) 07/08/20 10:58 Thrombin Time 17.1 Sec. (15.1-19.6) 07/08/20 10:58 Sodium 140 mmol/L (137-145) 07/10/20 05:23 Potassium 3.8 mmol/L (3.6-5.0) 07/10/20 05:23 Chloride 104.2 mmol/L (98-107) 07/10/20 05:23 Carbon Dioxide 26 mmol/L (22-30) 07/10/20 05:23 Anion Gap 14 mmol/L 07/10/20 05:23 BUN 14 mg/dL (7-17) 07/10/20 05:23 Creatinine 1.1 mg/dL (0.6-1.2) 07/10/20 05:23 Estimated GFR 58 ml/min 07/10/20 05:23 BUN/Creatinine Ratio 13 % 07/10/20 05:23 Glucose 102 mg/dL (65-100) H 07/10/20 05:23 Hemoglobin A1c 5.7 % (4-6) 07/09/20 05:19 Calcium 8.6 mg/dL (8.4-10.2) 07/10/20 05:23 Total Bilirubin 0.50 mg/dL (0.1-1.2) 07/10/20 05:23 AST 30 units/L (5-40) 07/10/20 05:23 ALT 11 units/L (7-56) 07/10/20 05:23 Alkaline Phosphatase 85 units/L (35-129) 07/10/20 05:23 Total Creatine Kinase 626 units/L (30-135) H 07/10/20 05:23 CK-MB (CK-2) 9.3 ng/mL (0.0-4.0) H 07/08/20 10:58 CK-MB (CK-2) Rel Index 0.6 (0-4) 07/08/20 10:58 Troponin T < 0.010 ng/mL (0.00-0.029) 07/08/20 10:58 Total Protein 6.6 g/dL (6.3-8.2) 07/10/20 05:23 Albumin 3.8 g/dL (3.9-5) L 07/10/20 05:23 Albumin/Globulin Ratio 1.4 % 07/10/20 05:23 Triglycerides 64 mg/dL (2-149) 07/09/20 05:19 Cholesterol 178 mg/dL (50-199) 07/09/20 05:19 LDL Cholesterol Direct 107 mg/dL (50-130) 07/09/20 05:19 HDL Cholesterol 58 mg/dL (40-59) 07/09/20 05:19 Cholesterol/HDL Ratio 3.06 % 07/09/20 05:19 Shin/IV: Voiding Method External Female Catheter Active Medications - Current Medications Current Medications: Generic Name Dose Route Start Last Admin Trade Name Freq PRN Reason Stop Dose Admin Acetaminophen 650 mg 07/08/20 22:54 07/15/20 04:30 Acetaminophen 325 Mg Tab PO 650 mg Q4H PRN Administration Pain MILD(1-3)/Fever >100.5/WHITESIDE Albuterol 2.5 mg 07/12/20 08:00 07/17/20 08:51 Albuterol 2.5 Mg/3 Ml Nebu IH 2.5 mg TIDRT KRISTY Administration Amlodipine Besylate 10 mg 07/10/20 14:00 07/16/20 09:32 Amlodipine 10 Mg Tab PO 10 mg QDAY KRISTY Administration Arformoterol Tartrate 15 mcg 07/09/20 08:00 07/17/20 08:51 Arformoterol 15 Mcg/2 Ml Nebu IH 15 mcg Q12HRT KRISTY Administration Aspirin 81 mg 07/11/20 10:00 07/16/20 09:31 Aspirin Ec 81 Mg Tab PO 81 mg QDAY KRISTY Administration Atorvastatin Calcium 40 mg 07/09/20 22:00 07/16/20 21:43 Atorvastatin 40 Mg Tab PO 40 mg QHS KRISTY Administration Budesonide 0.5 mg 07/09/20 08:00 07/17/20 08:51 Budesonide 0.5 Mg/2 Ml Nebu IH 0.5 mg Q12HRT KRISTY Administration Carvedilol 12.5 mg 07/08/20 23:00 07/16/20 21:43 Carvedilol 12.5 Mg Tab PO 12.5 mg BID KRISTY Administration Clopidogrel Bisulfate 75 mg 07/10/20 14:00 07/16/20 09:31 Clopidogrel 75 Mg Tab PO 75 mg QDAY KRISTY Administration Enoxaparin Sodium 40 mg 07/10/20 14:00 07/16/20 09:32 Enoxaparin 40 Mg/0.4 Ml Inj SUB-Q 40 mg QDAY KRISTY Administration Protocol Famotidine 20 mg 07/10/20 10:00 07/16/20 21:43 Famotidine 20 Mg Tab PO 20 mg BID KRISTY Administration Hydralazine HCl 10 mg 07/10/20 13:51 07/13/20 21:44 Hydralazine 20 Mg/1 Ml Inj IV 10 mg Q6H PRN Administration SBP >180 or DBP >110 Hydralazine HCl 50 mg 07/13/20 22:00 07/17/20 05:49 Hydralazine 25 Mg Tab PO 50 mg Q8HR KRISTY Administration Hydrochlorothiazide 25 mg 07/09/20 10:00 07/16/20 09:31 Hydrochlorothiazide 25 Mg Tab PO 25 mg QDAY KRISTY Administration Hydromorphone HCl 0.5 mg 07/08/20 22:54 Hydromorphone 1 Mg/1 Ml Inj IV Q3H PRN Pain , Severe (7-10) Lisinopril 20 mg 07/09/20 10:00 07/16/20 09:31 Lisinopril 20 Mg Tab PO 20 mg QDAY KRISTY Administration Methylprednisolone Sodium Succinate 40 mg 07/10/20 16:00 07/17/20 05:50 Methylprednisolone Sod Succinate 40 Mg/1 Ml Inj IV 40 mg Q8HR KRISTY Administration Ondansetron HCl 4 mg 07/08/20 22:54 Ondansetron 4 Mg/2 Ml Inj IV Q8H PRN Nausea And Vomiting Oxycodone/Acetaminophen 1 tab 07/08/20 22:54 Oxycodone /Acetaminophen 5-325mg Tab PO Q6H PRN Pain, Moderate (4-6) Sodium Chloride 10 ml 07/08/20 23:00 07/16/20 21:44 Sodium Chloride 0.9% 10 Ml Flush Syringe IV 10 ml BID KRISTY Administration Sodium Chloride 10 ml 07/08/20 22:54 Sodium Chloride 0.9% 10 Ml Flush Syringe IV PRN PRN LINE FLUSH Nutrition/Malnutrition Assess - Dietary Evaluation Nutrition/Malnutrition Findings: Nutrition Notes Start: 07/16/20 07:35 Freq: Status: Active Protocol: Document 07/16/20 07:36 ROXANE (Rec: 07/16/20 07:36 [email or web address]) Nutrition Notes Initial or Follow up Brief Note Subjective/Other Information Screen for LOS. Pt eating 100% of meals. Nutrition Intervention Revisit per MD consult or patient Sign Off request:
[2020-07-17] MEDS: FAMOTIDINE 20 MG TAB PO SCH ×2 (11:31→22:57)
[2020-07-17] MEDS: LISINOPRIL 20 MG TAB PO SCH (11:31)
[2020-07-17] MEDS: carvediloL 12.5 MG TAB PO SCH ×2 (11:31→22:57)
[2020-07-17] MEDS: ENOXAPARIN 40 MG/0.4 ML INJ SUB-Q SCH (11:31)
[2020-07-17] MEDS: hydroCHLOROthiazide 25 MG TAB PO SCH (11:31)
[2020-07-17] MEDS: CLOPIDOGREL 75 MG TAB PO SCH (11:31)
[2020-07-17] MEDS: amLODIPine 10 MG TAB PO SCH (11:32)
[2020-07-17] MEDS: ASPIRIN EC 81 MG TAB PO SCH (11:32)
[2020-07-18] MEDS: hydrALAZINE 25 MG TAB PO SCH ×3 (05:47→21:04)
[2020-07-18] MEDS: methylPREDNISolone Sod Succinate 40 MG/1 ML INJ IV SCH ×3 (05:47→21:05)
[2020-07-18] MEDS: ARFORMOTEROL 15 MCG/2 ML NEBU IH SCH (09:06)
[2020-07-18] MEDS: BUDESONIDE 0.5 MG/2 ML NEBU IH SCH (09:06)
[2020-07-18] MEDS: ALBUTEROL 2.5 MG/3 ML NEBU IH SCH ×2 (09:07→13:18)
[2020-07-18] MEDS: ASPIRIN EC 81 MG TAB PO SCH (09:12)
[2020-07-18] MEDS: FAMOTIDINE 20 MG TAB PO SCH ×2 (09:12→21:04)
[2020-07-18] MEDS: ENOXAPARIN 40 MG/0.4 ML INJ SUB-Q SCH (09:12)
[2020-07-18] MEDS: LISINOPRIL 20 MG TAB PO SCH (09:12)
[2020-07-18] MEDS: carvediloL 12.5 MG TAB PO SCH ×2 (09:12→21:05)
[2020-07-18] MEDS: CLOPIDOGREL 75 MG TAB PO SCH (09:13)
[2020-07-18] MEDS: amLODIPine 10 MG TAB PO SCH (09:13)
[2020-07-18] MEDS: hydroCHLOROthiazide 25 MG TAB PO SCH (09:13)
--- NOTE | 2020-07-18 10:07 | Progress Note ---
Assessment and Plan Assessment and plan: #CVA Echocardiogram - negative bubble study. 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 Vascular surgery recommends outpatient follow up with Dr Devaughn Wyatt in [facility].. 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 Vascular recommends addition of plavix (added) Continue statins Needs placement to continue PT #HTN Continue BP medications #HLD Continue lipitor 40 mg daily #Asthma Albuterol #Morbid obesity Diet and exercise #DVT ppx - heparin #Disposition Needs skilled vs acute rehab History Interval history: 84-year-old female with past medical history of hypertension comes in for difficulty talking and right upper extremity weakness. Patient unable to tell the exact timeline. Patient states her difficulty talking is improved. Right upper extremity weakness persists.. Patient says the right lower extremity strength is normal. And patient is able to walk. No syncope. No seizures. No past cerebrovascular accidents. No TIAs in the past. No chest pain. Patient has a history of hypertension and hyperlipidemia and asthma. No fever or chills. No recent exposure to coronavirus. Patient states the symptoms were started 48 to 72 hours before. Hospital course 07/09. MRI brain shows acute stroke involving the left middle cerebral artery region. Neurology consulted. Patient is on aspirin and statins. 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 Vascular surgery is been consulted. She complains of right-sided arm weakness. Has been seen by physical therapy who recommends placement. 07/10. Saw and examined patient at bedside. Has slurred speech which seems unchanged. Has some right sided weakness as well. Vascular surgery evaluated patient. She will need to see Dr Devaughn Wyatt in [facility], [place] after discharge. Vascular recommended addition of plavix for now. Continue aspirin and statins. She will continue PT. She needs placement. Discussed with patients daughter. 07/11. Awaiting placement. Continue aspirin and plan. Possible DC today. Awaiting insurance authorization. 07/12. Still waiting for insurance authorization. No new complaints. Getting PT 07/13. No change in neurological condition. Awaiting insurance auth. 07/14. Awaiting placement. Has no complaints. 07/15. No new complaints. Awaiting placement. 07/16. Awaiting placement. 07/17. Short summary - 84 year old F with a medical history of HTN admitted with slurred speech and difficulty talking. MRI showed acute CVA involinvg the left MCA area. Carotid imaging showed >70% stenosis of left ICA. Vascular surgery was consulted. Plavix was added. She will need to follow up with vascular surgery at discharge. She has right sided weakness and is getting PT. Her speech is slightly improved compared with admission. She is awaiting placement to a rehb/skilled nf. 07/18. Patient is to have discharged today. History Interval history: No new issues overnight. Hospitalist Physical - Constitutional Vitals: Temp Pulse Resp BP Pulse Ox 98.2 F 62 18 136/79 94 07/18/20 08:15 07/18/20 09:13 07/18/20 08:41 07/18/20 09:13 07/18/20 08:41 General appearance: Present: other (Occasional word searching) - EENT Eyes: Present: PERRL, EOM intact ENT: hearing intact, clear oral mucosa, dentition normal - Neck Neck: Present: supple, normal ROM - Respiratory Respiratory effort: normal Respiratory: bilateral: CTA - Cardiovascular Rhythm: regular Heart Sounds: Present: S1 & S2. Absent: gallop, rub - Extremities Extremities: no ischemia, No edema, Full ROM - Abdominal General gastrointestinal: soft, non-tender, non-distended, normal bowel sounds - Integumentary Integumentary: Present: clear, warm, dry - Neurologic Neurologic: CNII-XII intact, moves all extremities HEART Score - HEART Score Age: > 65 Risk factors: 1-2 risk factors Troponin: Troponin T < 0.010 ng/mL (0.00-0.029) 07/08/20 10:58 Troponin: < normal limit - Critical Actions Critical Actions: 0-3 pts:0.9-1.7%risk of adverse cardiac event.Candidate for discharge Results - Labs CBC & Chem 7: 07/10/20 05:23 07/10/20 05:23 Labs: Laboratory Last Values WBC 7.3 K/mm3 (4.5-11.0) 07/10/20 05:23 RBC 4.84 M/mm3 (3.65-5.03) 07/10/20 05:23 Hgb 14.0 gm/dl (10.1-14.3) 07/10/20 05:23 Hct 42.3 % (30.3-42.9) 07/10/20 05:23 MCV 87 fl (79-97) 07/10/20 05:23 MCH 29 pg (28-32) 07/10/20 05:23 MCHC 33 % (30-34) 07/10/20 05:23 RDW 14.6 % (13.2-15.2) 07/10/20 05:23 Plt Count 122 K/mm3 (140-440) L 07/10/20 05:23 Lymph % (Auto) 23.2 % (13.4-35.0) 07/10/20 05:23 [place] % (Auto) 7.8 % (0.0-7.3) H 07/10/20 05:23 Eos % (Auto) 2.1 % (0.0-4.3) 07/10/20 05:23 Baso % (Auto) 0.7 % (0.0-1.8) 07/10/20 05:23 Lymph # (Auto) 1.7 K/mm3 (1.2-5.4) 07/10/20 05:23 [place] # (Auto) 0.6 K/mm3 (0.0-0.8) 07/10/20 05:23 Eos # (Auto) 0.2 K/mm3 (0.0-0.4) 07/10/20 05:23 Baso # (Auto) 0.1 K/mm3 (0.0-0.1) 07/10/20 05:23 Seg Neutrophils % 66.2 % (40.0-70.0) 07/10/20 05:23 Seg Neutrophils # 4.8 K/mm3 (1.8-7.7) 07/10/20 05:23 PT 13.3 Sec. (12.2-14.9) 07/08/20 10:58 INR 1.02 (0.87-1.13) 07/08/20 10:58 APTT 27.5 Sec. (24.2-36.6) 07/08/20 10:58 Thrombin Time 17.1 Sec. (15.1-19.6) 07/08/20 10:58 Sodium 140 mmol/L (137-145) 07/10/20 05:23 Potassium 3.8 mmol/L (3.6-5.0) 07/10/20 05:23 Chloride 104.2 mmol/L (98-107) 07/10/20 05:23 Carbon Dioxide 26 mmol/L (22-30) 07/10/20 05:23 Anion Gap 14 mmol/L 07/10/20 05:23 BUN 14 mg/dL (7-17) 07/10/20 05:23 Creatinine 1.1 mg/dL (0.6-1.2) 07/10/20 05:23 Estimated GFR 58 ml/min 07/10/20 05:23 BUN/Creatinine Ratio 13 % 07/10/20 05:23 Glucose 102 mg/dL (65-100) H 07/10/20 05:23 Hemoglobin A1c 5.7 % (4-6) 07/09/20 05:19 Calcium 8.6 mg/dL (8.4-10.2) 07/10/20 05:23 Total Bilirubin 0.50 mg/dL (0.1-1.2) 07/10/20 05:23 AST 30 units/L (5-40) 07/10/20 05:23 ALT 11 units/L (7-56) 07/10/20 05:23 Alkaline Phosphatase 85 units/L (35-129) 07/10/20 05:23 Total Creatine Kinase 626 units/L (30-135) H 07/10/20 05:23 CK-MB (CK-2) 9.3 ng/mL (0.0-4.0) H 07/08/20 10:58 CK-MB (CK-2) Rel Index 0.6 (0-4) 07/08/20 10:58 Troponin T < 0.010 ng/mL (0.00-0.029) 07/08/20 10:58 Total Protein 6.6 g/dL (6.3-8.2) 07/10/20 05:23 Albumin 3.8 g/dL (3.9-5) L 07/10/20 05:23 Albumin/Globulin Ratio 1.4 % 07/10/20 05:23 Triglycerides 64 mg/dL (2-149) 07/09/20 05:19 Cholesterol 178 mg/dL (50-199) 07/09/20 05:19 LDL Cholesterol Direct 107 mg/dL (50-130) 07/09/20 05:19 HDL Cholesterol 58 mg/dL (40-59) 07/09/20 05:19 Cholesterol/HDL Ratio 3.06 % 07/09/20 05:19 Coronavirus (PCR) Negative (Negative) 07/16/20 Unknown Shin/IV: Voiding Method External Female Catheter Active Medications - Current Medications Current Medications: Generic Name Dose Route Start Last Admin Trade Name Freq PRN Reason Stop Dose Admin Acetaminophen 650 mg 07/08/20 22:54 07/15/20 04:30 Acetaminophen 325 Mg Tab PO 650 mg Q4H PRN Administration Pain MILD(1-3)/Fever >100.5/WHITESIDE Albuterol 2.5 mg 07/12/20 08:00 07/18/20 09:07 Albuterol 2.5 Mg/3 Ml Nebu IH 2.5 mg TIDRT KRISTY Administration Amlodipine Besylate 10 mg 07/10/20 14:00 07/18/20 09:13 Amlodipine 10 Mg Tab PO 10 mg QDAY KRISTY Administration Arformoterol Tartrate 15 mcg 07/09/20 08:00 07/18/20 09:06 Arformoterol 15 Mcg/2 Ml Nebu IH 15 mcg Q12HRT KRISTY Administration Aspirin 81 mg 07/11/20 10:00 07/18/20 09:12 Aspirin Ec 81 Mg Tab PO 81 mg QDAY KRISTY Administration Atorvastatin Calcium 40 mg 07/09/20 22:00 07/17/20 22:57 Atorvastatin 40 Mg Tab PO 40 mg QHS KRISTY Administration Budesonide 0.5 mg 07/09/20 08:00 07/18/20 09:06 Budesonide 0.5 Mg/2 Ml Nebu IH 0.5 mg Q12HRT KRISTY Administration Carvedilol 12.5 mg 07/08/20 23:00 07/18/20 09:12 Carvedilol 12.5 Mg Tab PO 12.5 mg BID KRISTY Administration Clopidogrel Bisulfate 75 mg 07/10/20 14:00 07/18/20 09:13 Clopidogrel 75 Mg Tab PO 75 mg QDAY KRISTY Administration Enoxaparin Sodium 40 mg 07/10/20 14:00 07/18/20 09:12 Enoxaparin 40 Mg/0.4 Ml Inj SUB-Q 40 mg QDAY KRISTY Administration Protocol Famotidine 20 mg 07/10/20 10:00 07/18/20 09:12 Famotidine 20 Mg Tab PO 20 mg BID KRISTY Administration Hydralazine HCl 10 mg 07/10/20 13:51 07/13/20 21:44 Hydralazine 20 Mg/1 Ml Inj IV 10 mg Q6H PRN Administration SBP >180 or DBP >110 Hydralazine HCl 50 mg 07/13/20 22:00 07/18/20 05:47 Hydralazine 25 Mg Tab PO 50 mg Q8HR KRISTY Administration Hydrochlorothiazide 25 mg 07/09/20 10:00 07/18/20 09:13 Hydrochlorothiazide 25 Mg Tab PO 25 mg QDAY KRISTY Administration Hydromorphone HCl 0.5 mg 07/08/20 22:54 Hydromorphone 1 Mg/1 Ml Inj IV Q3H PRN Pain , Severe (7-10) Lisinopril 20 mg 07/09/20 10:00 07/18/20 09:12 Lisinopril 20 Mg Tab PO 20 mg QDAY KRISTY Administration Methylprednisolone Sodium Succinate 40 mg 07/10/20 16:00 07/18/20 05:47 Methylprednisolone Sod Succinate 40 Mg/1 Ml Inj IV 40 mg Q8HR KRISTY Administration Ondansetron HCl 4 mg 07/08/20 22:54 Ondansetron 4 Mg/2 Ml Inj IV Q8H PRN Nausea And Vomiting Oxycodone/Acetaminophen 1 tab 07/08/20 22:54 Oxycodone /Acetaminophen 5-325mg Tab PO Q6H PRN Pain, Moderate (4-6) Sodium Chloride 10 ml 07/08/20 23:00 07/18/20 09:14 Sodium Chloride 0.9% 10 Ml Flush Syringe IV 10 ml BID KRISTY Administration Sodium Chloride 10 ml 07/08/20 22:54 Sodium Chloride 0.9% 10 Ml Flush Syringe IV PRN PRN LINE FLUSH Nutrition/Malnutrition Assess - Dietary Evaluation Nutrition/Malnutrition Findings: Nutrition Notes Start: 07/16/20 07:35 Freq: Status: Active Protocol: Document 07/16/20 07:36 ROXANE (Rec: 07/16/20 07:36 ROXANE [id number]) Nutrition Notes Initial or Follow up Brief Note Subjective/Other Information Screen for LOS. Pt eating 100% of meals. Nutrition Intervention Revisit per MD consult or patient Sign Off request:
--- NOTE | 2020-07-18 10:17 | Discharge Summary ---
Providers - Providers Date of Admission: 07/09/20 11:41 Date of discharge: 07/18/20 Attending physician: LENI MCINTOSH 07/08/20 Consult to Physician [CONS] Routine Comment: Consulting Provider: FRANCISCO ERNANDEZ Physician Instructions: Reason For Exam: Acute CVA 07/08/20 22:56 Occupational Therapy Evaluate and Treat [CONS] Routine Comment: Reason For Exam: Neuro deficits Physical Therapy Evaluation and Treat [CONS] Routine Comment: Reason For Exam: Neuro deficits 07/08/20 22:57 Speech Therapy Evaluation and Treat [CONS] Routine Reason For Exam: swallow eval 07/09/20 11:55 Consult to Physician [CONS] Routine Comment: Consulting Provider: TANESHA TORRES Physician Instructions: Reason For Exam: CVA with Left ICA stenosis Primary care physician: DIRECTOR IMAGING Hospitalization Reason for admission: CVA Condition: Stable Hospital course: 84-year-old female with past medical history of hypertension comes in for difficulty talking and right upper extremity weakness. Patient unable to tell the exact timeline. Patient states her difficulty talking is improved. Right upper extremity weakness persists.. Patient says the right lower extremity strength is normal. And patient is able to walk. No syncope. No seizures. No past cerebrovascular accidents. No TIAs in the past. No chest pain. Patient has a history of hypertension and hyperlipidemia and asthma. No fever or chills. No recent exposure to coronavirus. Patient states the symptoms were started 48 to 72 hours before admission. Hospital course 07/09. MRI brain shows acute stroke involving the left middle cerebral artery region. Neurology consulted. Patient is on aspirin and statins. 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 Vascular surgery is been consulted. She complains of right-sided arm weakness. Has been seen by physical therapy who recommends placement. 07/10. Saw and examined patient at bedside. Has slurred speech which seems unchanged. Has some right sided weakness as well. Vascular surgery evaluated patient. She will need to see Dr Devaughn Wyatt in [facility] after discharge. Vascular recommended addition of plavix for now. Continue aspirin and statins. She will continue PT. She needs placement. Discussed with patients daughter. 07/11. Awaiting placement. Continue aspirin and plan. Possible DC today. Awaiting insurance authorization. 07/12. Still waiting for insurance authorization. No new complaints. Getting PT 07/13. No change in neurological condition. Awaiting insurance auth. 07/14. Awaiting placement. Has no complaints. 07/15. No new complaints. Awaiting placement. 07/16. Awaiting placement. 07/17. Short summary - 84 year old F with a medical history of HTN admitted with slurred speech and difficulty talking. MRI showed acute CVA involinvg the left MCA area. Carotid imaging showed >70% stenosis of left ICA. Vascular surgery was consulted. Plavix was added. She will need to follow up with vascular surgery at discharge. She has right sided weakness and is getting PT. Her speech is slightly improved compared with admission. She is awaiting placement to a rehb/skilled nf. 07/18. Case management arrange for placement at [facility]. Dedicated discharge time 35 minutes. Disposition: DC-01 TO HOME OR SELFCARE Final Discharge Diagnosis (Prints w/discharge instructions): Acute CVA, hypertension, hyperlipidemia, asthma, morbid obesity Core Measure Documentation - Palliative Care Palliative Care/ Comfort Measures: Not Applicable - Core Measures Any of the following diagnoses?: stroke - Stroke Discharge Requirements Statin for LDL = or >70 mg/dl on DC: Yes Anticoag for atrial fib/atrial flutter: Not Applicable Antithrombotic for ischemic stroke: Yes Exam - Constitutional Vitals: Temp Pulse Resp BP Pulse Ox 98.2 F 62 18 136/79 94 07/18/20 08:15 07/18/20 09:13 07/18/20 08:41 07/18/20 09:13 07/18/20 08:41 General appearance: Present: no acute distress, well-nourished - EENT Eyes: Present: PERRL ENT: hearing intact, clear oral mucosa - Neck Neck: Present: supple, normal ROM - Respiratory Respiratory effort: normal Respiratory: bilateral: CTA - Cardiovascular Heart Sounds: Present: S1 & S2. Absent: rub, click - Extremities Extremities: pulses symmetrical, No edema Peripheral Pulses: within normal limits - Abdominal General gastrointestinal: Present: soft, non-tender, non-distended, normal bowel sounds Female genitourinary: Present: normal - Integumentary Integumentary: Present: clear, warm, dry - Musculoskeletal Musculoskeletal: gait normal, strength equal bilaterally - Psychiatric Psychiatric: appropriate mood/affect, intact judgment & insight - Neurologic Neurologic: CNII-XII intact, moves all extremities Plan Activity: advance as tolerated Weight Bearing Status: Weight Bear as Tolerated Diet: low fat, low cholesterol, low salt Follow up with: PRIMARY CAREMD [Primary Care Provider] - 7 Days TANESHA TORRES MD [Staff Physician] - 7 Days FRANCISCO ERNANDEZ MD [Staff Physician] - 7 Days Prescriptions: RX: amLODIPine 10 mg PO QDAY #30 tablet RX: carvediloL [Coreg] 12.5 mg PO BID #60 RX: predniSONE [Deltasone] 40 mg PO QDAY #10 tab RX: Fluticasone Propionate [Flovent Diskus] 50 mcg IH QDAY #1 inh RX: Aspirin EC [Halfprin EC] 81 mg PO QDAY #30 tablet RX: AtorvaSTATin [Lipitor] 40 mg PO QHS #30 tablet RX: Clopidogrel [Plavix] 75 mg PO QDAY #30 tablet RX: Lisinopril/Hydrochlorothiazide [Zestoretic 20-25 mg] 1 tab PO QDAY #30
[2020-07-19] MEDS: methylPREDNISolone Sod Succinate 40 MG/1 ML INJ IV SCH ×3 (05:31→21:24)
[2020-07-19] MEDS: hydrALAZINE 25 MG TAB PO SCH ×3 (05:31→21:24)
[2020-07-19] MEDS: ALBUTEROL 2.5 MG/3 ML NEBU IH SCH ×4 (07:31→20:09)
[2020-07-19] MEDS: BUDESONIDE 0.5 MG/2 ML NEBU IH SCH ×3 (07:31→20:09)
[2020-07-19] MEDS: ARFORMOTEROL 15 MCG/2 ML NEBU IH SCH ×3 (07:31→20:10)
--- NOTE | 2020-07-19 09:14 | Progress Note ---
Assessment and Plan Assessment and plan: #CVA Echocardiogram - negative bubble study. 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 Vascular surgery recommends outpatient follow up with Dr Devaughn Wyatt in [facility].. 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 Vascular recommends addition of plavix (added) Continue statins Needs placement to continue PT #HTN Continue BP medications #HLD Continue lipitor 40 mg daily #Asthma Albuterol #Morbid obesity Diet and exercise #DVT ppx - heparin #Disposition Needs skilled vs acute rehab History Interval history: 84-year-old female with past medical history of hypertension comes in for difficulty talking and right upper extremity weakness. Patient unable to tell the exact timeline. Patient states her difficulty talking is improved. Right upper extremity weakness persists.. Patient says the right lower extremity strength is normal. And patient is able to walk. No syncope. No seizures. No past cerebrovascular accidents. No TIAs in the past. No chest pain. Patient has a history of hypertension and hyperlipidemia and asthma. No fever or chills. No recent exposure to coronavirus. Patient states the symptoms were started 48 to 72 hours before. Hospital course 07/09. MRI brain shows acute stroke involving the left middle cerebral artery region. Neurology consulted. Patient is on aspirin and statins. 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 Vascular surgery is been consulted. She complains of right-sided arm weakness. Has been seen by physical therapy who recommends placement. 07/10. Saw and examined patient at bedside. Has slurred speech which seems unchanged. Has some right sided weakness as well. Vascular surgery evaluated patient. She will need to see Dr Devaughn Wyatt in [facility] after discharge. Vascular recommended addition of plavix for now. Continue aspirin and statins. She will continue PT. She needs placement. Discussed with patients daughter. 07/11. Awaiting placement. Continue aspirin and plan. Possible DC today. Awaiting insurance authorization. 07/12. Still waiting for insurance authorization. No new complaints. Getting PT 07/13. No change in neurological condition. Awaiting insurance auth. 07/14. Awaiting placement. Has no complaints. 07/15. No new complaints. Awaiting placement. 07/16. Awaiting placement. 07/17. Short summary - 84 year old F with a medical history of HTN admitted with slurred speech and difficulty talking. MRI showed acute CVA involinvg the left MCA area. Carotid imaging showed >70% stenosis of left ICA. Vascular surgery was consulted. Plavix was added. She will need to follow up with vascular surgery at discharge. She has right sided weakness and is getting PT. Her speech is slightly improved compared with admission. She is awaiting placement to a rehb/skilled nf. 07/18. Patient is to have discharged today. 07/19. No new issues overnight. Awaiting insurance authorization for placement. History Interval history: No new issues overnight. Hospitalist Physical - Constitutional Vitals: Temp Pulse Resp BP Pulse Ox 98.0 F 65 18 113/36 95 07/19/20 03:47 07/19/20 07:50 07/19/20 03:47 07/19/20 07:50 07/19/20 07:50 General appearance: Present: no acute distress, well-nourished - EENT Eyes: Present: PERRL, EOM intact ENT: hearing intact, clear oral mucosa, dentition normal - Neck Neck: Present: supple, normal ROM - Respiratory Respiratory effort: normal Respiratory: bilateral: CTA - Cardiovascular Rhythm: regular Heart Sounds: Present: S1 & S2. Absent: gallop, rub - Extremities Extremities: no ischemia, No edema, Full ROM - Abdominal General gastrointestinal: soft, non-tender, non-distended, normal bowel sounds - Integumentary Integumentary: Present: clear, warm, dry - Neurologic Neurologic: CNII-XII intact, moves all extremities HEART Score - HEART Score Age: > 65 Risk factors: 1-2 risk factors Troponin: Troponin T < 0.010 ng/mL (0.00-0.029) 07/08/20 10:58 Troponin: < normal limit - Critical Actions Critical Actions: 0-3 pts:0.9-1.7%risk of adverse cardiac event.Candidate for discharge Results - Labs CBC & Chem 7: 07/10/20 05:23 07/10/20 05:23 Labs: Laboratory Last Values WBC 7.3 K/mm3 (4.5-11.0) 07/10/20 05:23 RBC 4.84 M/mm3 (3.65-5.03) 07/10/20 05:23 Hgb 14.0 gm/dl (10.1-14.3) 07/10/20 05:23 Hct 42.3 % (30.3-42.9) 07/10/20 05:23 MCV 87 fl (79-97) 07/10/20 05:23 MCH 29 pg (28-32) 07/10/20 05:23 MCHC 33 % (30-34) 07/10/20 05:23 RDW 14.6 % (13.2-15.2) 07/10/20 05:23 Plt Count 122 K/mm3 (140-440) L 07/10/20 05:23 Lymph % (Auto) 23.2 % (13.4-35.0) 07/10/20 05:23 [place] % (Auto) 7.8 % (0.0-7.3) H 07/10/20 05:23 Eos % (Auto) 2.1 % (0.0-4.3) 07/10/20 05:23 Baso % (Auto) 0.7 % (0.0-1.8) 07/10/20 05:23 Lymph # (Auto) 1.7 K/mm3 (1.2-5.4) 07/10/20 05:23 [place] # (Auto) 0.6 K/mm3 (0.0-0.8) 07/10/20 05:23 Eos # (Auto) 0.2 K/mm3 (0.0-0.4) 07/10/20 05:23 Baso # (Auto) 0.1 K/mm3 (0.0-0.1) 07/10/20 05:23 Seg Neutrophils % 66.2 % (40.0-70.0) 07/10/20 05:23 Seg Neutrophils # 4.8 K/mm3 (1.8-7.7) 07/10/20 05:23 PT 13.3 Sec. (12.2-14.9) 07/08/20 10:58 INR 1.02 (0.87-1.13) 07/08/20 10:58 APTT 27.5 Sec. (24.2-36.6) 07/08/20 10:58 Thrombin Time 17.1 Sec. (15.1-19.6) 07/08/20 10:58 Sodium 140 mmol/L (137-145) 07/10/20 05:23 Potassium 3.8 mmol/L (3.6-5.0) 07/10/20 05:23 Chloride 104.2 mmol/L (98-107) 07/10/20 05:23 Carbon Dioxide 26 mmol/L (22-30) 07/10/20 05:23 Anion Gap 14 mmol/L 07/10/20 05:23 BUN 14 mg/dL (7-17) 07/10/20 05:23 Creatinine 1.1 mg/dL (0.6-1.2) 07/10/20 05:23 Estimated GFR 58 ml/min 07/10/20 05:23 BUN/Creatinine Ratio 13 % 07/10/20 05:23 Glucose 102 mg/dL (65-100) H 07/10/20 05:23 POC Glucose 158 mg/dL (70-105) H 07/18/20 20:52 Hemoglobin A1c 5.7 % (4-6) 07/09/20 05:19 Calcium 8.6 mg/dL (8.4-10.2) 07/10/20 05:23 Total Bilirubin 0.50 mg/dL (0.1-1.2) 07/10/20 05:23 AST 30 units/L (5-40) 07/10/20 05:23 ALT 11 units/L (7-56) 07/10/20 05:23 Alkaline Phosphatase 85 units/L (35-129) 07/10/20 05:23 Total Creatine Kinase 626 units/L (30-135) H 07/10/20 05:23 CK-MB (CK-2) 9.3 ng/mL (0.0-4.0) H 07/08/20 10:58 CK-MB (CK-2) Rel Index 0.6 (0-4) 07/08/20 10:58 Troponin T < 0.010 ng/mL (0.00-0.029) 07/08/20 10:58 Total Protein 6.6 g/dL (6.3-8.2) 07/10/20 05:23 Albumin 3.8 g/dL (3.9-5) L 07/10/20 05:23 Albumin/Globulin Ratio 1.4 % 07/10/20 05:23 Triglycerides 64 mg/dL (2-149) 07/09/20 05:19 Cholesterol 178 mg/dL (50-199) 07/09/20 05:19 LDL Cholesterol Direct 107 mg/dL (50-130) 07/09/20 05:19 HDL Cholesterol 58 mg/dL (40-59) 07/09/20 05:19 Cholesterol/HDL Ratio 3.06 % 07/09/20 05:19 Coronavirus (PCR) Negative (Negative) 07/16/20 Unknown Shin/IV: Voiding Method External Female Catheter Active Medications - Current Medications Current Medications: Generic Name Dose Route Start Last Admin Trade Name Freq PRN Reason Stop Dose Admin Acetaminophen 650 mg 07/08/20 22:54 07/15/20 04:30 Acetaminophen 325 Mg Tab PO 650 mg Q4H PRN Administration Pain MILD(1-3)/Fever >100.5/WHITESIDE Albuterol 2.5 mg 07/12/20 08:00 07/19/20 08:46 Albuterol 2.5 Mg/3 Ml Nebu IH 2.5 mg TIDRT KRISTY Administration Amlodipine Besylate 10 mg 07/10/20 14:00 07/18/20 09:13 Amlodipine 10 Mg Tab PO 10 mg QDAY KRISTY Administration Arformoterol Tartrate 15 mcg 07/09/20 08:00 07/19/20 08:46 Arformoterol 15 Mcg/2 Ml Nebu IH 15 mcg Q12HRT KRISTY Administration Aspirin 81 mg 07/11/20 10:00 07/18/20 09:12 Aspirin Ec 81 Mg Tab PO 81 mg QDAY KRISTY Administration Atorvastatin Calcium 40 mg 07/09/20 22:00 07/18/20 21:04 Atorvastatin 40 Mg Tab PO 40 mg QHS KRISTY Administration Budesonide 0.5 mg 07/09/20 08:00 07/19/20 08:46 Budesonide 0.5 Mg/2 Ml Nebu IH 0.5 mg Q12HRT KRISTY Administration Carvedilol 12.5 mg 07/08/20 23:00 07/18/20 21:05 Carvedilol 12.5 Mg Tab PO 12.5 mg BID KRISTY Administration Clopidogrel Bisulfate 75 mg 07/10/20 14:00 07/18/20 09:13 Clopidogrel 75 Mg Tab PO 75 mg QDAY KRISTY Administration Enoxaparin Sodium 40 mg 07/10/20 14:00 07/18/20 09:12 Enoxaparin 40 Mg/0.4 Ml Inj SUB-Q 40 mg QDAY KRISTY Administration Protocol Famotidine 20 mg 07/10/20 10:00 07/18/20 21:04 Famotidine 20 Mg Tab PO 20 mg BID KRISTY Administration Hydralazine HCl 10 mg 07/10/20 13:51 07/13/20 21:44 Hydralazine 20 Mg/1 Ml Inj IV 10 mg Q6H PRN Administration SBP >180 or DBP >110 Hydralazine HCl 50 mg 07/13/20 22:00 07/19/20 05:31 Hydralazine 25 Mg Tab PO 50 mg Q8HR KRISTY Administration Hydrochlorothiazide 25 mg 07/09/20 10:00 07/18/20 09:13 Hydrochlorothiazide 25 Mg Tab PO 25 mg QDAY KRISTY Administration Hydromorphone HCl 0.5 mg 07/08/20 22:54 Hydromorphone 1 Mg/1 Ml Inj IV Q3H PRN Pain , Severe (7-10) Lisinopril 20 mg 07/09/20 10:00 07/18/20 09:12 Lisinopril 20 Mg Tab PO 20 mg QDAY KRISTY Administration Methylprednisolone Sodium Succinate 40 mg 07/10/20 16:00 07/19/20 05:31 Methylprednisolone Sod Succinate 40 Mg/1 Ml Inj IV 40 mg Q8HR KRISTY Administration Ondansetron HCl 4 mg 07/08/20 22:54 Ondansetron 4 Mg/2 Ml Inj IV Q8H PRN Nausea And Vomiting Oxycodone/Acetaminophen 1 tab 07/08/20 22:54 Oxycodone /Acetaminophen 5-325mg Tab PO Q6H PRN Pain, Moderate (4-6) Sodium Chloride 10 ml 07/08/20 23:00 07/18/20 21:05 Sodium Chloride 0.9% 10 Ml Flush Syringe IV 10 ml BID KRISTY Administration Sodium Chloride 10 ml 07/08/20 22:54 Sodium Chloride 0.9% 10 Ml Flush Syringe IV PRN PRN LINE FLUSH Nutrition/Malnutrition Assess - Dietary Evaluation Nutrition/Malnutrition Findings: Nutrition Notes Start: 07/16/20 07:35 Freq: Status: Active Protocol: Document 07/16/20 07:36 ROXANE (Rec: 07/16/20 07:36 ROXANE [id number]) Nutrition Notes Initial or Follow up Brief Note Subjective/Other Information Screen for LOS. Pt eating 100% of meals. Nutrition Intervention Revisit per MD consult or patient Sign Off request:
[2020-07-19] MEDS: carvediloL 12.5 MG TAB PO SCH ×2 (10:42→21:25)
[2020-07-19] MEDS: ENOXAPARIN 40 MG/0.4 ML INJ SUB-Q SCH (10:42)
[2020-07-19] MEDS: amLODIPine 10 MG TAB PO SCH (10:42)
[2020-07-19] MEDS: ASPIRIN EC 81 MG TAB PO SCH (10:42)
[2020-07-19] MEDS: FAMOTIDINE 20 MG TAB PO SCH ×2 (10:42→21:24)
[2020-07-19] MEDS: hydroCHLOROthiazide 25 MG TAB PO SCH (10:42)
[2020-07-19] MEDS: LISINOPRIL 20 MG TAB PO SCH (10:42)
[2020-07-19] MEDS: CLOPIDOGREL 75 MG TAB PO SCH (10:42)
[2020-07-20] MEDS: hydrALAZINE 25 MG TAB PO SCH ×3 (05:48→23:32)
[2020-07-20] MEDS: methylPREDNISolone Sod Succinate 40 MG/1 ML INJ IV SCH (05:48)
[2020-07-20] MEDS: BUDESONIDE 0.5 MG/2 ML NEBU IH SCH ×2 (08:29→19:28)
[2020-07-20] MEDS: ALBUTEROL 2.5 MG/3 ML NEBU IH SCH (08:29)
[2020-07-20] MEDS: ARFORMOTEROL 15 MCG/2 ML NEBU IH SCH ×2 (08:29→19:28)
--- NOTE | 2020-07-20 08:58 | Progress Note ---
Assessment and Plan Assessment and plan: #CVA Echocardiogram - negative bubble study. 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 Vascular surgery recommends outpatient follow up with Dr Devaughn Wyatt in [facility].. 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 Vascular recommends addition of plavix (added) Continue statins Needs placement to continue PT #HTN Continue BP medications #HLD Continue lipitor 40 mg daily #Asthma Albuterol #Morbid obesity Diet and exercise #DVT ppx - heparin #Disposition Needs skilled vs acute rehab History Interval history: 84-year-old female with past medical history of hypertension comes in for difficulty talking and right upper extremity weakness. Patient unable to tell the exact timeline. Patient states her difficulty talking is improved. Right upper extremity weakness persists.. Patient says the right lower extremity strength is normal. And patient is able to walk. No syncope. No seizures. No past cerebrovascular accidents. No TIAs in the past. No chest pain. Patient has a history of hypertension and hyperlipidemia and asthma. No fever or chills. No recent exposure to coronavirus. Patient states the symptoms were started 48 to 72 hours before. Hospital course 07/09. MRI brain shows acute stroke involving the left middle cerebral artery region. Neurology consulted. Patient is on aspirin and statins. 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 Vascular surgery is been consulted. She complains of right-sided arm weakness. Has been seen by physical therapy who recommends placement. 07/10. Saw and examined patient at bedside. Has slurred speech which seems unchanged. Has some right sided weakness as well. Vascular surgery evaluated patient. She will need to see Dr Devaughn Wyatt in [facility] after discharge. Vascular recommended addition of plavix for now. Continue aspirin and statins. She will continue PT. She needs placement. Discussed with patients daughter. 07/11. Awaiting placement. Continue aspirin and plan. Possible DC today. Awaiting insurance authorization. 07/12. Still waiting for insurance authorization. No new complaints. Getting PT 07/13. No change in neurological condition. Awaiting insurance auth. 07/14. Awaiting placement. Has no complaints. 07/15. No new complaints. Awaiting placement. 07/16. Awaiting placement. 07/17. Short summary - 84 year old F with a medical history of HTN admitted with slurred speech and difficulty talking. MRI showed acute CVA involinvg the left MCA area. Carotid imaging showed >70% stenosis of left ICA. Vascular surgery was consulted. Plavix was added. She will need to follow up with vascular surgery at discharge. She has right sided weakness and is getting PT. Her speech is slightly improved compared with admission. She is awaiting placement to a rehb/skilled nf. 07/18. Patient is to have discharged today. 07/19. No new issues overnight. Awaiting insurance authorization for placement. 07/20. No new issues overnight. Awaiting insurance authorization for placement. History Interval history: No new issues overnight. Hospitalist Physical - Constitutional Vitals: Temp Pulse Resp BP Pulse Ox 98.9 F 86 18 102/72 99 07/20/20 08:50 07/20/20 08:50 07/20/20 08:50 07/20/20 08:50 07/20/20 08:50 General appearance: Present: no acute distress, well-nourished - EENT Eyes: Present: PERRL, EOM intact ENT: hearing intact, clear oral mucosa, dentition normal - Neck Neck: Present: supple, normal ROM - Respiratory Respiratory effort: normal Respiratory: bilateral: CTA - Cardiovascular Rhythm: regular Heart Sounds: Present: S1 & S2. Absent: gallop, rub - Extremities Extremities: no ischemia, No edema, Full ROM - Abdominal General gastrointestinal: soft, non-tender, non-distended, normal bowel sounds - Integumentary Integumentary: Present: clear, warm, dry - Neurologic Neurologic: CNII-XII intact, moves all extremities HEART Score - HEART Score Age: > 65 Risk factors: 1-2 risk factors Troponin: Troponin T < 0.010 ng/mL (0.00-0.029) 07/08/20 10:58 Troponin: < normal limit - Critical Actions Critical Actions: 0-3 pts:0.9-1.7%risk of adverse cardiac event.Candidate for discharge Results - Labs CBC & Chem 7: 07/10/20 05:23 07/10/20 05:23 Labs: Laboratory Last Values WBC 7.3 K/mm3 (4.5-11.0) 07/10/20 05: RBC 4.84 M/mm3 (3.65-5.03) 07/10/20 05:23 Hgb 14.0 gm/dl (10.1-14.3) 07/10/20 05:23 Hct 42.3 % (30.3-42.9) 07/10/20 05:23 MCV 87 fl (79-97) 07/10/20 05:23 MCH 29 pg (28-32) 07/10/20 05:23 MCHC 33 % (30-34) 07/10/20 05:23 RDW 14.6 % (13.2-15.2) 07/10/20 05:23 Plt Count 122 K/mm3 (140-440) L 07/10/20 05:23 Lymph % (Auto) 23.2 % (13.4-35.0) 07/10/20 05:23 [place] % (Auto) 7.8 % (0.0-7.3) H 07/10/20 05:23 Eos % (Auto) 2.1 % (0.0-4.3) 07/10/20 05:23 Baso % (Auto) 0.7 % (0.0-1.8) 07/10/20 05:23 Lymph # (Auto) 1.7 K/mm3 (1.2-5.4) 07/10/20 05:23 [place] # (Auto) 0.6 K/mm3 (0.0-0.8) 07/10/20 05:23 Eos # (Auto) 0.2 K/mm3 (0.0-0.4) 07/10/20 05:23 Baso # (Auto) 0.1 K/mm3 (0.0-0.1) 07/10/20 05:23 Seg Neutrophils % 66.2 % (40.0-70.0) 07/10/20 05:23 Seg Neutrophils # 4.8 K/mm3 (1.8-7.7) 07/10/20 05:23 PT 13.3 Sec. (12.2-14.9) 07/08/20 10:58 INR 1.02 (0.87-1.13) 07/08/20 10:58 APTT 27.5 Sec. (24.2-36.6) 07/08/20 10:58 Thrombin Time 17.1 Sec. (15.1-19.6) 07/08/20 10:58 Sodium 140 mmol/L (137-145) 07/10/20 05:23 Potassium 3.8 mmol/L (3.6-5.0) 07/10/20 05:23 Chloride 104.2 mmol/L (98-107) 07/10/20 05:23 Carbon Dioxide 26 mmol/L (22-30) 07/10/20 05:23 Anion Gap 14 mmol/L 07/10/20 05:23 BUN 14 mg/dL (7-17) 07/10/20 05:23 Creatinine 1.1 mg/dL (0.6-1.2) 07/10/20 05:23 Estimated GFR 58 ml/min 07/10/20 05:23 BUN/Creatinine Ratio 13 % 07/10/20 05:23 Glucose 102 mg/dL (65-100) H 07/10/20 05:23 POC Glucose 158 mg/dL (70-105) H 07/18/20 20:52 Hemoglobin A1c 5.7 % (4-6) 07/09/20 05:19 Calcium 8.6 mg/dL (8.4-10.2) 07/10/20 05:23 Total Bilirubin 0.50 mg/dL (0.1-1.2) 07/10/20 05:23 AST 30 units/L (5-40) 07/10/20 05:23 ALT 11 units/L (7-56) 07/10/20 05:23 Alkaline Phosphatase 85 units/L (35-129) 07/10/20 05:23 Total Creatine Kinase 626 units/L (30-135) H 07/10/20 05:23 CK-MB (CK-2) 9.3 ng/mL (0.0-4.0) H 07/08/20 10:58 CK-MB (CK-2) Rel Index 0.6 (0-4) 07/08/20 10:58 Troponin T < 0.010 ng/mL (0.00-0.029) 07/08/20 10:58 Total Protein 6.6 g/dL (6.3-8.2) 07/10/20 05:23 Albumin 3.8 g/dL (3.9-5) L 07/10/20 05:23 Albumin/Globulin Ratio 1.4 % 07/10/20 05:23 Triglycerides 64 mg/dL (2-149) 07/09/20 05:19 Cholesterol 178 mg/dL (50-199) 07/09/20 05:19 LDL Cholesterol Direct 107 mg/dL (50-130) 07/09/20 05:19 HDL Cholesterol 58 mg/dL (40-59) 07/09/20 05:19 Cholesterol/HDL Ratio 3.06 % 07/09/20 05:19 Coronavirus (PCR) Negative (Negative) 07/16/20 Unknown Shin/IV: Voiding Method External Female Catheter Active Medications - Current Medications Current Medications: Generic Name Dose Route Start Last Admin Trade Name Freq PRN Reason Stop Dose Admin Acetaminophen 650 mg 07/08/20 22:54 07/15/20 04:30 Acetaminophen 325 Mg Tab PO 650 mg Q4H PRN Administration Pain MILD(1-3)/Fever >100.5/WHITESIDE Albuterol 2.5 mg 07/12/20 08:00 07/20/20 08:29 Albuterol 2.5 Mg/3 Ml Nebu IH 2.5 mg TIDRT KRISTY Administration Amlodipine Besylate 10 mg 07/10/20 14:00 07/19/20 10:42 Amlodipine 10 Mg Tab PO 10 mg QDAY KRISTY Administration Arformoterol Tartrate 15 mcg 07/09/20 08:00 07/20/20 08:29 Arformoterol 15 Mcg/2 Ml Nebu IH 15 mcg Q12HRT KRISTY Administration Aspirin 81 mg 07/11/20 10:00 07/19/20 10:42 Aspirin Ec 81 Mg Tab PO 81 mg QDAY KRISTY Administration Atorvastatin Calcium 40 mg 07/09/20 22:00 07/19/20 21:24 Atorvastatin 40 Mg Tab PO 40 mg QHS KRISTY Administration Budesonide 0.5 mg 07/09/20 08:00 07/20/20 08:29 Budesonide 0.5 Mg/2 Ml Nebu IH 0.5 mg Q12HRT KRISTY Administration Carvedilol 12.5 mg 07/08/20 23:00 07/19/20 21:25 Carvedilol 12.5 Mg Tab PO 12.5 mg BID KRISTY Administration Clopidogrel Bisulfate 75 mg 07/10/20 14:00 07/19/20 10:42 Clopidogrel 75 Mg Tab PO 75 mg QDAY KRISTY Administration Enoxaparin Sodium 40 mg 07/10/20 14:00 07/19/20 10:42 Enoxaparin 40 Mg/0.4 Ml Inj SUB-Q 40 mg QDAY KRISTY Administration Protocol Famotidine 20 mg 07/10/20 10:00 07/19/20 21:24 Famotidine 20 Mg Tab PO 20 mg BID KRISTY Administration Hydralazine HCl 10 mg 07/10/20 13:51 07/13/20 21:44 Hydralazine 20 Mg/1 Ml Inj IV 10 mg Q6H PRN Administration SBP >180 or DBP >110 Hydralazine HCl 50 mg 07/13/20 22:00 07/20/20 05:48 Hydralazine 25 Mg Tab PO 50 mg Q8HR KRITSY Administration Hydrochlorothiazide 25 mg 07/09/20 10:00 07/19/20 10:42 Hydrochlorothiazide 25 Mg Tab PO 25 mg QDAY KRISTY Administration Hydromorphone HCl 0.5 mg 07/08/20 22:54 Hydromorphone 1 Mg/1 Ml Inj IV Q3H PRN Pain , Severe (7-10) Lisinopril 20 mg 07/09/20 10:00 07/19/20 10:42 Lisinopril 20 Mg Tab PO 20 mg QDAY KRISTY Administration Methylprednisolone Sodium Succinate 40 mg 07/10/20 16:00 07/20/20 05:48 Methylprednisolone Sod Succinate 40 Mg/1 Ml Inj IV 40 mg Q8HR KRISTY Administration Ondansetron HCl 4 mg 07/08/20 22:54 Ondansetron 4 Mg/2 Ml Inj IV Q8H PRN Nausea And Vomiting Oxycodone/Acetaminophen 1 tab 07/08/20 22:54 Oxycodone /Acetaminophen 5-325mg Tab PO Q6H PRN Pain, Moderate (4-6) Sodium Chloride 10 ml 07/08/20 23:00 07/19/20 21:25 Sodium Chloride 0.9% 10 Ml Flush Syringe IV 10 ml BID KRISTY Administration Sodium Chloride 10 ml 07/08/20 22:54 Sodium Chloride 0.9% 10 Ml Flush Syringe IV PRN PRN LINE FLUSH Nutrition/Malnutrition Assess - Dietary Evaluation Nutrition/Malnutrition Findings: Nutrition Notes Start: 07/16/20 07:35 Freq: Status: Active Protocol: Document 07/16/20 07:36 (Rec: 07/16/20 07:36 ROXANE [id number]) Nutrition Notes Initial or Follow up Brief Note Subjective/Other Information Screen for LOS. Pt eating 100% of meals. Nutrition Intervention Revisit per MD consult or patient Sign Off request:
[2020-07-20] MEDS: hydroCHLOROthiazide 25 MG TAB PO SCH (10:03)
[2020-07-20] MEDS: ASPIRIN EC 81 MG TAB PO SCH (10:03)
[2020-07-20] MEDS: CLOPIDOGREL 75 MG TAB PO SCH (10:04)
[2020-07-20] MEDS: FAMOTIDINE 20 MG TAB PO SCH ×2 (10:04→23:33)
[2020-07-20] MEDS: ENOXAPARIN 40 MG/0.4 ML INJ SUB-Q SCH (10:04)
[2020-07-20] MEDS: amLODIPine 10 MG TAB PO SCH (10:04)
[2020-07-20] MEDS: carvediloL 12.5 MG TAB PO SCH ×2 (10:04→23:33)
[2020-07-20] MEDS: LISINOPRIL 20 MG TAB PO SCH (10:04)
[2020-07-20] MEDS ORDERED: ALBUTEROL 2.5 MG/3 ML NEBU IH PRN (10:13)
[2020-07-20] MEDS ORDERED: methylPREDNISolone Sod Succinate 40 MG/1 ML INJ IV SCH (22:00)
[2020-07-21] MEDS: hydrALAZINE 25 MG TAB PO SCH ×3 (07:30→21:28)
--- NOTE | 2020-07-21 08:47 | Progress Note ---
Assessment and Plan Assessment and plan: #CVA Echocardiogram - negative bubble study. 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 Vascular surgery recommends outpatient follow up with Dr Devaughn Wyatt in [facility].. 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 Vascular recommends addition of plavix (added) Continue statins Needs placement to continue PT #HTN Continue BP medications #HLD Continue lipitor 40 mg daily #Asthma Albuterol #Morbid obesity Diet and exercise #DVT ppx - heparin #Disposition Needs skilled vs acute rehab History Interval history: 84-year-old female with past medical history of hypertension comes in for difficulty talking and right upper extremity weakness. Patient unable to tell the exact timeline. Patient states her difficulty talking is improved. Right upper extremity weakness persists.. Patient says the right lower extremity strength is normal. And patient is able to walk. No syncope. No seizures. No past cerebrovascular accidents. No TIAs in the past. No chest pain. Patient has a history of hypertension and hyperlipidemia and asthma. No fever or chills. No recent exposure to coronavirus. Patient states the symptoms were started 48 to 72 hours before. Hospital course 07/09. MRI brain shows acute stroke involving the left middle cerebral artery region. Neurology consulted. Patient is on aspirin and statins. 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 Vascular surgery is been consulted. She complains of right-sided arm weakness. Has been seen by physical therapy who recommends placement. 07/10. Saw and examined patient at bedside. Has slurred speech which seems unchanged. Has some right sided weakness as well. Vascular surgery evaluated patient. She will need to see Dr Devaughn Wyatt in [facility] after discharge. Vascular recommended addition of plavix for now. Continue aspirin and statins. She will continue PT. She needs placement. Discussed with patients daughter. 07/11. Awaiting placement. Continue aspirin and plan. Possible DC today. Awaiting insurance authorization. 07/12. Still waiting for insurance authorization. No new complaints. Getting PT 07/13. No change in neurological condition. Awaiting insurance auth. 07/14. Awaiting placement. Has no complaints. 07/15. No new complaints. Awaiting placement. 07/16. Awaiting placement. 07/17. Short summary - 84 year old F with a medical history of HTN admitted with slurred speech and difficulty talking. MRI showed acute CVA involinvg the left MCA area. Carotid imaging showed >70% stenosis of left ICA. Vascular surgery was consulted. Plavix was added. She will need to follow up with vascular surgery at discharge. She has right sided weakness and is getting PT. Her speech is slightly improved compared with admission. She is awaiting placement to a rehab/skilled nf. 07/18. Patient is to have discharged today. 07/19. No new issues overnight. Awaiting insurance authorization for placement. 07/20. No new issues overnight. Awaiting insurance authorization for placement. 07/21. No new issues overnight. Awaiting insurance authorization for placement. Continue to taper steroids for asthma exacerbation. History Interval history: No new issues overnight. Hospitalist Physical - Constitutional Vitals: Temp Pulse Resp BP Pulse Ox 98.0 F 64 18 115/56 94 07/21/20 03:36 07/21/20 07:30 07/21/20 03:36 07/21/20 07:30 07/21/20 03:36 General appearance: Present: no acute distress, well-nourished - EENT Eyes: Present: PERRL, EOM intact ENT: hearing intact, clear oral mucosa, dentition normal - Neck Neck: Present: supple, normal ROM - Respiratory Respiratory effort: normal Respiratory: bilateral: CTA - Cardiovascular Rhythm: regular Heart Sounds: Present: S1 & S2. Absent: gallop, rub - Extremities Extremities: no ischemia, No edema, Full ROM - Abdominal General gastrointestinal: soft, non-tender, non-distended, normal bowel sounds - Integumentary Integumentary: Present: clear, warm, dry - Neurologic Neurologic: CNII-XII intact, moves all extremities HEART Score - HEART Score Age: > 65 Risk factors: 1-2 risk factors Troponin: Troponin T < 0.010 ng/mL (0.00-0.029) 07/08/20 10:58 Troponin: < normal limit - Critical Actions Critical Actions: 0-3 pts:0.9-1.7%risk of adverse cardiac event.Candidate for discharge Results - Labs CBC & Chem 7: 07/10/20 05:23 07/10/20 05:23 Labs: Laboratory Last Values WBC 7.3 K/mm3 (4.5-11.0) 07/10/20 05:23 RBC 4.84 M/mm3 (3.65-5.03) 07/10/20 05:23 Hgb 14.0 gm/dl (10.1-14.3) 07/10/20 05:23 Hct 42.3 % (30.3-42.9) 07/10/20 05:23 MCV 87 fl (79-97) 07/10/20 05:23 MCH 29 pg (28-32) 07/10/20 05:23 MCHC 33 % (30-34) 07/10/20 05:23 RDW 14.6 % (13.2-15.2) 07/10/20 05:23 Plt Count 122 K/mm3 (140-440) L 07/10/20 05:23 Lymph % (Auto) 23.2 % (13.4-35.0) 07/10/20 05:23 [place] % (Auto) 7.8 % (0.0-7.3) H 07/10/20 05:23 Eos % (Auto) 2.1 % (0.0-4.3) 07/10/20 05:23 Baso % (Auto) 0.7 % (0.0-1.8) 07/10/20 05:23 Lymph # (Auto) 1.7 K/mm3 (1.2-5.4) 07/10/20 05:23 [place] # (Auto) 0.6 K/mm3 (0.0-0.8) 07/10/20 05:23 Eos # (Auto) 0.2 K/mm3 (0.0-0.4) 07/10/20 05:23 Baso # (Auto) 0.1 K/mm3 (0.0-0.1) 07/10/20 05:23 Seg Neutrophils % 66.2 % (40.0-70.0) 07/10/20 05:23 Seg Neutrophils # 4.8 K/mm3 (1.8-7.7) 07/10/20 05:23 PT 13.3 Sec. (12.2-14.9) 07/08/20 10:58 INR 1.02 (0.87-1.13) 07/08/20 10:58 APTT 27.5 Sec. (24.2-36.6) 07/08/20 10:58 Thrombin Time 17.1 Sec. (15.1-19.6) 07/08/20 10:58 Sodium 140 mmol/L (137-145) 07/10/20 05:23 Potassium 3.8 mmol/L (3.6-5.0) 07/10/20 05:23 Chloride 104.2 mmol/L (98-107) 07/10/20 05:23 Carbon Dioxide 26 mmol/L (22-30) 07/10/20 05:23 Anion Gap 14 mmol/L 07/10/20 05:23 BUN 14 mg/dL (7-17) 07/10/20 05:23 Creatinine 1.1 mg/dL (0.6-1.2) 07/10/20 05:23 Estimated GFR 58 ml/min 07/10/20 05:23 BUN/Creatinine Ratio 13 % 07/10/20 05:23 Glucose 102 mg/dL (65-100) H 07/10/20 05:23 POC Glucose 158 mg/dL (70-105) H 07/18/20 20:52 Hemoglobin A1c 5.7 % (4-6) 07/09/20 05:19 Calcium 8.6 mg/dL (8.4-10.2) 07/10/20 05:23 Total Bilirubin 0.50 mg/dL (0.1-1.2) 07/10/20 05:23 AST 30 units/L (5-40) 07/10/20 05:23 ALT 11 units/L (7-56) 07/10/20 05:23 Alkaline Phosphatase 85 units/L (35-129) 07/10/20 05:23 Total Creatine Kinase 626 units/L (30-135) H 07/10/20 05:23 CK-MB (CK-2) 9.3 ng/mL (0.0-4.0) H 07/08/20 10:58 CK-MB (CK-2) Rel Index 0.6 (0-4) 07/08/20 10:58 Troponin T < 0.010 ng/mL (0.00-0.029) 07/08/20 10:58 Total Protein 6.6 g/dL (6.3-8.2) 07/10/20 05:23 Albumin 3.8 g/dL (3.9-5) L 07/10/20 05:23 Albumin/Globulin Ratio 1.4 % 07/10/20 05:23 Triglycerides 64 mg/dL (2-149) 07/09/20 05:19 Cholesterol 178 mg/dL (50-199) 07/09/20 05:19 LDL Cholesterol Direct 107 mg/dL (50-130) 07/09/20 05:19 HDL Cholesterol 58 mg/dL (40-59) 07/09/20 05:19 Cholesterol/HDL Ratio 3.06 % 07/09/20 05:19 Coronavirus (PCR) Negative (Negative) 07/16/20 Unknown Shin/IV: Voiding Method External Female Catheter Active Medications - Current Medications Current Medications: Generic Name Dose Route Start Last Admin Trade Name Freq PRN Reason Stop Dose Admin Acetaminophen 650 mg 07/08/20 22:54 07/15/20 04:30 Acetaminophen 325 Mg Tab PO 650 mg Q4H PRN Administration Pain MILD(1-3)/Fever >100.5/WHITESIDE Albuterol 2.5 mg 07/20/20 10:13 Albuterol 2.5 Mg/3 Ml Nebu IH Q4H PRN Shortness Of Breath Amlodipine Besylate 10 mg 07/10/20 14:00 07/20/20 10:04 Amlodipine 10 Mg Tab PO 10 mg QDAY KRISTY Administration Arformoterol Tartrate 15 mcg 07/09/20 08:00 07/20/20 19:28 Arformoterol 15 Mcg/2 Ml Nebu IH 15 mcg Q12HRT KRISTY Administration Aspirin 81 mg 07/11/20 10:00 07/20/20 10:03 Aspirin Ec 81 Mg Tab PO 81 mg QDAY KRISTY Administration Atorvastatin Calcium 40 mg 07/09/20 22:00 07/20/20 23:32 Atorvastatin 40 Mg Tab PO 40 mg QHS KRISTY Administration Budesonide 0.5 mg 07/09/20 08:00 07/20/20 19:28 Budesonide 0.5 Mg/2 Ml Nebu IH 0.5 mg Q12HRT KRISTY Administration Carvedilol 12.5 mg 07/08/20 23:00 07/20/20 23:33 Carvedilol 12.5 Mg Tab PO 12.5 mg BID KRISTY Administration Clopidogrel Bisulfate 75 mg 07/10/20 14:00 07/20/20 10:04 Clopidogrel 75 Mg Tab PO 75 mg QDAY KRISTY Administration Enoxaparin Sodium 40 mg 07/10/20 14:00 07/20/20 10:04 Enoxaparin 40 Mg/0.4 Ml Inj SUB-Q 40 mg QDAY KRISTY Administration Protocol Famotidine 20 mg 07/10/20 10:00 07/20/20 23:33 Famotidine 20 Mg Tab PO 20 mg BID KRISTY Administration Hydralazine HCl 10 mg 07/10/20 13:51 07/13/20 21:44 Hydralazine 20 Mg/1 Ml Inj IV 10 mg Q6H PRN Administration SBP >180 or DBP >110 Hydralazine HCl 50 mg 07/13/20 22:00 07/21/20 07:30 Hydralazine 25 Mg Tab PO 50 mg Q8HR KRISTY Administration Hydrochlorothiazide 25 mg 07/09/20 10:00 07/20/20 10:03 Hydrochlorothiazide 25 Mg Tab PO 25 mg QDAY KRISTY Administration Hydromorphone HCl 0.5 mg 07/08/20 22:54 Hydromorphone 1 Mg/1 Ml Inj IV Q3H PRN Pain , Severe (7-10) Lisinopril 20 mg 07/09/20 10:00 07/20/20 10:04 Lisinopril 20 Mg Tab PO 20 mg QDAY KRISTY Administration Methylprednisolone Sodium Succinate 40 mg 07/20/20 22:00 07/20/20 23:32 Methylprednisolone Sod Succinate 40 Mg/1 Ml Inj IV 40 mg Q12HR KRISTY Administration Ondansetron HCl 4 mg 07/08/20 22:54 Ondansetron 4 Mg/2 Ml Inj IV Q8H PRN Nausea And Vomiting Oxycodone/Acetaminophen 1 tab 07/08/20 22:54 Oxycodone /Acetaminophen 5-325mg Tab PO Q6H PRN Pain, Moderate (4-6) Sodium Chloride 10 ml 07/08/20 23:00 07/20/20 23:34 Sodium Chloride 0.9% 10 Ml Flush Syringe IV 10 ml BID KRISTY Administration Sodium Chloride 10 ml 07/08/20 22:54 Sodium Chloride 0.9% 10 Ml Flush Syringe IV PRN PRN LINE FLUSH Nutrition/Malnutrition Assess - Dietary Evaluation Nutrition/Malnutrition Findings: Nutrition Notes Start: 07/16/20 07:35 Freq: Status: Active Protocol: Document 07/16/20 07:36 ROXANE (Rec: 07/16/20 07:36 [email or web address]) Nutrition Notes Initial or Follow up Brief Note Subjective/Other Information Screen for LOS. Pt eating 100% of meals. Nutrition Intervention Revisit per MD consult or patient Sign Off request:
[2020-07-21] MEDS: BUDESONIDE 0.5 MG/2 ML NEBU IH SCH ×2 (10:20→22:41)
[2020-07-21] MEDS: ARFORMOTEROL 15 MCG/2 ML NEBU IH SCH ×2 (10:20→22:41)
[2020-07-21] MEDS: methylPREDNISolone Sod Succinate 40 MG/1 ML INJ IV SCH (11:04)
[2020-07-21] MEDS: CLOPIDOGREL 75 MG TAB PO SCH (11:05)
[2020-07-21] MEDS: ENOXAPARIN 40 MG/0.4 ML INJ SUB-Q SCH (11:05)
[2020-07-21] MEDS: ASPIRIN EC 81 MG TAB PO SCH (11:05)
[2020-07-21] MEDS: LISINOPRIL 20 MG TAB PO SCH (11:05)
[2020-07-21] MEDS: hydroCHLOROthiazide 25 MG TAB PO SCH (11:05)
[2020-07-21] MEDS: FAMOTIDINE 20 MG TAB PO SCH ×2 (11:05→21:27)
[2020-07-21] MEDS: carvediloL 12.5 MG TAB PO SCH ×2 (11:06→21:27)
[2020-07-21] MEDS: amLODIPine 10 MG TAB PO SCH (11:06)
[2020-07-22] MEDS: hydrALAZINE 25 MG TAB PO SCH ×3 (06:43→21:34)
[2020-07-22] MEDS: ARFORMOTEROL 15 MCG/2 ML NEBU IH SCH ×2 (09:13→20:27)
[2020-07-22] MEDS: BUDESONIDE 0.5 MG/2 ML NEBU IH SCH ×2 (09:13→20:27)
--- NOTE | 2020-07-22 09:15 | Progress Note ---
Assessment and Plan Assessment and plan: #CVA Echocardiogram - negative bubble study. 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 Vascular surgery recommends outpatient follow up with Dr Devaughn Wyatt in [facility].. 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 Vascular recommends addition of plavix (added) Continue statins Needs placement to continue PT #HTN Continue BP medications #HLD Continue lipitor 40 mg daily #Asthma Albuterol #Morbid obesity Diet and exercise #DVT ppx - heparin #Disposition Needs skilled vs acute rehab History Interval history: 84-year-old female with past medical history of hypertension comes in for difficulty talking and right upper extremity weakness. Patient unable to tell the exact timeline. Patient states her difficulty talking is improved. Right upper extremity weakness persists.. Patient says the right lower extremity strength is normal. And patient is able to walk. No syncope. No seizures. No past cerebrovascular accidents. No TIAs in the past. No chest pain. Patient has a history of hypertension and hyperlipidemia and asthma. No fever or chills. No recent exposure to coronavirus. Patient states the symptoms were started 48 to 72 hours before. Hospital course 07/09. MRI brain shows acute stroke involving the left middle cerebral artery region. Neurology consulted. Patient is on aspirin and statins. 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 Vascular surgery is been consulted. She complains of right-sided arm weakness. Has been seen by physical therapy who recommends placement. 07/10. Saw and examined patient at bedside. Has slurred speech which seems unchanged. Has some right sided weakness as well. Vascular surgery evaluated patient. She will need to see Dr Devaughn Wyatt in [facility] after discharge. Vascular recommended addition of plavix for now. Continue aspirin and statins. She will continue PT. She needs placement. Discussed with patients daughter. 07/11. Awaiting placement. Continue aspirin and plan. Possible DC today. Awaiting insurance authorization. 07/12. Still waiting for insurance authorization. No new complaints. Getting PT 07/13. No change in neurological condition. Awaiting insurance auth. 07/14. Awaiting placement. Has no complaints. 07/15. No new complaints. Awaiting placement. 07/16. Awaiting placement. 07/17. Short summary - 84 year old F with a medical history of HTN admitted with slurred speech and difficulty talking. MRI showed acute CVA involinvg the left MCA area. Carotid imaging showed >70% stenosis of left ICA. Vascular surgery was consulted. Plavix was added. She will need to follow up with vascular surgery at discharge. She has right sided weakness and is getting PT. Her speech is slightly improved compared with admission. She is awaiting placement to a rehab/skilled nf. 07/18. Patient is to have discharged today. 07/19. No new issues overnight. Awaiting insurance authorization for placement. 07/20. No new issues overnight. Awaiting insurance authorization for placement. 07/21. No new issues overnight. Awaiting insurance authorization for placement. Continue to taper steroids for asthma exacerbation. 07/22; pending placement. History Interval history: Patient was seen and evaluated this morning No nursing issues reported to me Right-sided weakness Patient was alert and oriented and no complaints Hospitalist Physical - Physical exam Narrative exam: Not in cardiopulmonary distress. The patient is obese. Vital signs as documented. Head exam is unremarkable. No scleral icterus . Neck is without jugular venous distension, thyromegaly, or carotid bruits. Lungs are clear to auscultation. Cardiac exam reveals regular rate and Rhythm. Abdominal exam reveals normal bowel sounds, nontender, no organomegaly. Extremities are nonedematous and both femoral and pedal pulses are normal. 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 Right-sided hemiparesis. - Constitutional Vitals: Temp Pulse Resp BP Pulse Ox 97.7 F 59 L 18 106/67 92 07/22/20 08:03 07/22/20 09:05 07/22/20 08:03 07/22/20 08:03 07/22/20 08:03 General appearance: Present: no acute distress, well-nourished HEART Score - HEART Score Age: > 65 Risk factors: 1-2 risk factors Troponin: Troponin T < 0.010 ng/mL (0.00-0.029) 07/08/20 10:58 Troponin: < normal limit - Critical Actions Critical Actions: 0-3 pts:0.9-1.7%risk of adverse cardiac event.Candidate for discharge Results - Labs CBC & Chem 7: 07/10/20 05:23 07/10/20 05:23 Labs: Laboratory Last Values WBC 7.3 K/mm3 (4.5-11.0) 07/10/20 05:23 RBC 4.84 M/mm3 (3.65-5.03) 07/10/20 05:23 Hgb 14.0 gm/dl (10.1-14.3) 07/10/20 05:23 Hct 42.3 % (30.3-42.9) 07/10/20 05:23 MCV 87 fl (79-97) 07/10/20 05:23 MCH 29 pg (28-32) 07/10/20 05:23 MCHC 33 % (30-34) 07/10/20 05:23 RDW 14.6 % (13.2-15.2) 07/10/20 05:23 Plt Count 122 K/mm3 (140-440) L 07/10/20 05:23 Lymph % (Auto) 23.2 % (13.4-35.0) 07/10/20 05:23 [place] % (Auto) 7.8 % (0.0-7.3) H 07/10/20 05:23 Eos % (Auto) 2.1 % (0.0-4.3) 07/10/20 05:23 Baso % (Auto) 0.7 % (0.0-1.8) 07/10/20 05:23 Lymph # (Auto) 1.7 K/mm3 (1.2-5.4) 07/10/20 05:23 [place] # (Auto) 0.6 K/mm3 (0.0-0.8) 07/10/20 05:23 Eos # (Auto) 0.2 K/mm3 (0.0-0.4) 07/10/20 05:23 Baso # (Auto) 0.1 K/mm3 (0.0-0.1) 07/10/20 05:23 Seg Neutrophils % 66.2 % (40.0-70.0) 07/10/20 05:23 Seg Neutrophils # 4.8 K/mm3 (1.8-7.7) 07/10/20 05:23 PT 13.3 Sec. (12.2-14.9) 07/08/20 10:58 INR 1.02 (0.87-1.13) 07/08/20 10:58 APTT 27.5 Sec. (24.2-36.6) 07/08/20 10:58 Thrombin Time 17.1 Sec. (15.1-19.6) 07/08/20 10:58 Sodium 140 mmol/L (137-145) 07/10/20 05:23 Potassium 3.8 mmol/L (3.6-5.0) 07/10/20 05:23 Chloride 104.2 mmol/L (98-107) 07/10/20 05:23 Carbon Dioxide 26 mmol/L (22-30) 07/10/20 05:23 Anion Gap 14 mmol/L 07/10/20 05:23 BUN 14 mg/dL (7-17) 07/10/20 05:23 Creatinine 1.1 mg/dL (0.6-1.2) 07/10/20 05:23 Estimated GFR 58 ml/min 07/10/20 05:23 BUN/Creatinine Ratio 13 % 07/10/20 05:23 Glucose 102 mg/dL (65-100) H 07/10/20 05:23 POC Glucose 158 mg/dL (70-105) H 07/18/20 20:52 Hemoglobin A1c 5.7 % (4-6) 07/09/20 05:19 Calcium 8.6 mg/dL (8.4-10.2) 07/10/20 05:23 Total Bilirubin 0.50 mg/dL (0.1-1.2) 07/10/20 05:23 AST 30 units/L (5-40) 07/10/20 05:23 ALT 11 units/L (7-56) 07/10/20 05:23 Alkaline Phosphatase 85 units/L (35-129) 07/10/20 05:23 Total Creatine Kinase 626 units/L (30-135) H 07/10/20 05:23 CK-MB (CK-2) 9.3 ng/mL (0.0-4.0) H 07/08/20 10:58 CK-MB (CK-2) Rel Index 0.6 (0-4) 07/08/20 10:58 Troponin T < 0.010 ng/mL (0.00-0.029) 07/08/20 10:58 Total Protein 6.6 g/dL (6.3-8.2) 07/10/20 05:23 Albumin 3.8 g/dL (3.9-5) L 07/10/20 05:23 Albumin/Globulin Ratio 1.4 % 07/10/20 05:23 Triglycerides 64 mg/dL (2-149) 07/09/20 05:19 Cholesterol 178 mg/dL (50-199) 07/09/20 05:19 LDL Cholesterol Direct 107 mg/dL (50-130) 07/09/20 05:19 HDL Cholesterol 58 mg/dL (40-59) 07/09/20 05:19 Cholesterol/HDL Ratio 3.06 % 07/09/20 05:19 Coronavirus (PCR) Negative (Negative) 07/16/20 Unknown Shin/IV: Voiding Method External Female Catheter Active Medications - Current Medications Current Medications: Generic Name Dose Route Start Last Admin Trade Name Freq PRN Reason Stop Dose Admin Acetaminophen 650 mg 07/08/20 22:54 07/15/20 04:30 Acetaminophen 325 Mg Tab PO 650 mg Q4H PRN Administration Pain MILD(1-3)/Fever >100.5/WHITESIDE Albuterol 2.5 mg 07/20/20 10:13 Albuterol 2.5 Mg/3 Ml Nebu IH Q4H PRN Shortness Of Breath Amlodipine Besylate 10 mg 07/10/20 14:00 07/21/20 11:06 Amlodipine 10 Mg Tab PO 10 mg QDAY KRISTY Administration Arformoterol Tartrate 15 mcg 07/09/20 08:00 07/22/20 09:13 Arformoterol 15 Mcg/2 Ml Nebu IH 15 mcg Q12HRT KRISTY Administration Aspirin 81 mg 07/11/20 10:00 07/21/20 11:05 Aspirin Ec 81 Mg Tab PO 81 mg QDAY KRISTY Administration Atorvastatin Calcium 40 mg 07/09/20 22:00 07/21/20 21:27 Atorvastatin 40 Mg Tab PO 40 mg QHS KRISTY Administration Budesonide 0.5 mg 07/09/20 08:00 07/22/20 09:13 Budesonide 0.5 Mg/2 Ml Nebu IH 0.5 mg Q12HRT KRISTY Administration Carvedilol 12.5 mg 07/08/20 23:00 07/21/20 21:27 Carvedilol 12.5 Mg Tab PO 12.5 mg BID KRISTY Administration Clopidogrel Bisulfate 75 mg 07/10/20 14:00 07/21/20 11:05 Clopidogrel 75 Mg Tab PO 75 mg QDAY KRISTY Administration Enoxaparin Sodium 40 mg 07/10/20 14:00 07/21/20 11:05 Enoxaparin 40 Mg/0.4 Ml Inj SUB-Q 40 mg QDAY KRISTY Administration Protocol Famotidine 20 mg 07/10/20 10:00 07/21/20 21:27 Famotidine 20 Mg Tab PO 20 mg BID KRISTY Administration Hydralazine HCl 10 mg 07/10/20 13:51 07/13/20 21:44 Hydralazine 20 Mg/1 Ml Inj IV 10 mg Q6H PRN Administration SBP >180 or DBP >110 Hydralazine HCl 50 mg 07/13/20 22:00 07/22/20 06:43 Hydralazine 25 Mg Tab PO 50 mg Q8HR KRISTY Administration Hydrochlorothiazide 25 mg 07/09/20 10:00 07/21/20 11:05 Hydrochlorothiazide 25 Mg Tab PO 25 mg QDAY KRISTY Administration Hydromorphone HCl 0.5 mg 07/08/20 22:54 Hydromorphone 1 Mg/1 Ml Inj IV Q3H PRN Pain , Severe (7-10) Lisinopril 20 mg 07/09/20 10:00 07/21/20 11:05 Lisinopril 20 Mg Tab PO 20 mg QDAY KRISTY Administration Methylprednisolone Sodium Succinate 40 mg 07/21/20 10:00 07/21/20 11:04 Methylprednisolone Sod Succinate 40 Mg/1 Ml Inj IV 40 mg Q24HR KRISTY Administration Ondansetron HCl 4 mg 07/08/20 22:54 Ondansetron 4 Mg/2 Ml Inj IV Q8H PRN Nausea And Vomiting Oxycodone/Acetaminophen 1 tab 07/08/20 22:54 Oxycodone /Acetaminophen 5-325mg Tab PO Q6H PRN Pain, Moderate (4-6) Sodium Chloride 10 ml 07/08/20 23:00 07/21/20 21:27 Sodium Chloride 0.9% 10 Ml Flush Syringe IV 10 ml BID KRISTY Administration Sodium Chloride 10 ml 07/08/20 22:54 Sodium Chloride 0.9% 10 Ml Flush Syringe IV PRN PRN LINE FLUSH Nutrition/Malnutrition Assess - Dietary Evaluation Nutrition/Malnutrition Findings: Nutrition Notes Start: 07/16/20 07:35 Freq: Status: Active Protocol: Document 07/16/20 07:36 ROXANE (Rec: 07/16/20 07:36 ROXANE [id number]) Nutrition Notes Initial or Follow up Brief Note Subjective/Other Information Screen for LOS. Pt eating 100% of meals. Nutrition Intervention Revisit per MD consult or patient Sign Off request:
[2020-07-22] MEDS: ASPIRIN EC 81 MG TAB PO SCH (10:00)
[2020-07-22] MEDS: hydroCHLOROthiazide 25 MG TAB PO SCH (10:00)
[2020-07-22] MEDS: carvediloL 12.5 MG TAB PO SCH ×2 (10:00→21:33)
[2020-07-22] MEDS: FAMOTIDINE 20 MG TAB PO SCH ×2 (10:01→21:33)
[2020-07-22] MEDS: ENOXAPARIN 40 MG/0.4 ML INJ SUB-Q SCH (10:01)
[2020-07-22] MEDS: CLOPIDOGREL 75 MG TAB PO SCH (10:01)
[2020-07-22] MEDS: methylPREDNISolone Sod Succinate 40 MG/1 ML INJ IV SCH (10:01)
[2020-07-22] MEDS: LISINOPRIL 20 MG TAB PO SCH (13:10)
[2020-07-22] MEDS: amLODIPine 10 MG TAB PO SCH (13:11)
[2020-07-23] MEDS: hydrALAZINE 25 MG TAB PO SCH (05:33)
--- NOTE | 2020-07-23 09:18 | Progress Note ---
Assessment and Plan Assessment and plan: #CVA Echocardiogram - negative bubble study. 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 Vascular surgery recommends outpatient follow up with Dr Devaughn Wyatt in [facility].. 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 Vascular recommends addition of plavix (added) Continue statins Needs placement to continue PT #HTN Continue BP medications #HLD Continue lipitor 40 mg daily #Asthma Albuterol #Morbid obesity Diet and exercise #DVT ppx - heparin #Disposition Needs skilled vs acute rehab History Interval history: 84-year-old female with past medical history of hypertension comes in for difficulty talking and right upper extremity weakness. Patient unable to tell the exact timeline. Patient states her difficulty talking is improved. Right upper extremity weakness persists.. Patient says the right lower extremity strength is normal. And patient is able to walk. No syncope. No seizures. No past cerebrovascular accidents. No TIAs in the past. No chest pain. Patient has a history of hypertension and hyperlipidemia and asthma. No fever or chills. No recent exposure to coronavirus. Patient states the symptoms were started 48 to 72 hours before. Hospital course 07/09. MRI brain shows acute stroke involving the left middle cerebral artery region. Neurology consulted. Patient is on aspirin and statins. 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 Vascular surgery is been consulted. She complains of right-sided arm weakness. Has been seen by physical therapy who recommends placement. 07/10. Saw and examined patient at bedside. Has slurred speech which seems unchanged. Has some right sided weakness as well. Vascular surgery evaluated patient. She will need to see Dr Devaughn Wyatt in [facility] after discharge. Vascular recommended addition of plavix for now. Continue aspirin and statins. She will continue PT. She needs placement. Discussed with patients daughter. 07/11. Awaiting placement. Continue aspirin and plan. Possible DC today. Awaiting insurance authorization. 07/12. Still waiting for insurance authorization. No new complaints. Getting PT 07/13. No change in neurological condition. Awaiting insurance auth. 07/14. Awaiting placement. Has no complaints. 07/15. No new complaints. Awaiting placement. 07/16. Awaiting placement. 07/17. Short summary - 84 year old F with a medical history of HTN admitted with slurred speech and difficulty talking. MRI showed acute CVA involinvg the left MCA area. Carotid imaging showed >70% stenosis of left ICA. Vascular surgery was consulted. Plavix was added. She will need to follow up with vascular surgery at discharge. She has right sided weakness and is getting PT. Her speech is slightly improved compared with admission. She is awaiting placement to a rehab/skilled nf. 07/18. Patient is to have discharged today. 07/19. No new issues overnight. Awaiting insurance authorization for placement. 07/20. No new issues overnight. Awaiting insurance authorization for placement. 07/21. No new issues overnight. Awaiting insurance authorization for placement. Continue to taper steroids for asthma exacerbation. 07/22; pending placement. 07/23/2020; no new issues overnight. Awaiting insurance authorization for placement. History Interval history: Patient was seen and evaluated this morning No nursing issues reported to me Right-sided weakness Patient was alert and oriented and no complaints Hospitalist Physical - Physical exam Narrative exam: Not in cardiopulmonary distress. The patient is obese. Vital signs as documented. Head exam is unremarkable. No scleral icterus . Neck is without jugular venous distension, thyromegaly, or carotid bruits. Lungs are clear to auscultation. Cardiac exam reveals regular rate and Rhythm. Abdominal exam reveals normal bowel sounds, nontender, no organomegaly. Extremities are nonedematous and both femoral and pedal pulses are normal. 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 Right-sided hemiparesis. - Constitutional Vitals: Temp Pulse Resp BP Pulse Ox 98.5 F 66 16 114/74 97 07/23/20 03:48 07/23/20 05:33 07/23/20 03:48 07/23/20 05:33 07/23/20 03:48 General appearance: Present: no acute distress, well-nourished HEART Score - HEART Score Age: > 65 Risk factors: 1-2 risk factors Troponin: Troponin T < 0.010 ng/mL (0.00-0.029) 07/08/20 10:58 Troponin: < normal limit - Critical Actions Critical Actions: 0-3 pts:0.9-1.7%risk of adverse cardiac event.Candidate for discharge Results - Labs CBC & Chem 7: 07/10/20 05:23 07/10/20 05:23 Labs: Laboratory Last Values WBC 7.3 K/mm3 (4.5-11.0) 07/10/20 05:23 RBC 4.84 M/mm3 (3.65-5.03) 07/10/20 05:23 Hgb 14.0 gm/dl (10.1-14.3) 07/10/20 05:23 Hct 42.3 % (30.3-42.9) 07/10/20 05:23 MCV 87 fl (79-97) 07/10/20 05:23 MCH 29 pg (28-32) 07/10/20 05:23 MCHC 33 % (30-34) 07/10/20 05:23 RDW 14.6 % (13.2-15.2) 07/10/20 05:23 Plt Count 122 K/mm3 (140-440) L 07/10/20 05:23 Lymph % (Auto) 23.2 % (13.4-35.0) 07/10/20 05:23 [place] % (Auto) 7.8 % (0.0-7.3) H 07/10/20 05:23 Eos % (Auto) 2.1 % (0.0-4.3) 07/10/20 05:23 Baso % (Auto) 0.7 % (0.0-1.8) 07/10/20 05:23 Lymph # (Auto) 1.7 K/mm3 (1.2-5.4) 07/10/20 05:23 [place] # (Auto) 0.6 K/mm3 (0.0-0.8) 07/10/20 05:23 Eos # (Auto) 0.2 K/mm3 (0.0-0.4) 07/10/20 05:23 Baso # (Auto) 0.1 K/mm3 (0.0-0.1) 07/10/20 05:23 Seg Neutrophils % 66.2 % (40.0-70.0) 07/10/20 05:23 Seg Neutrophils # 4.8 K/mm3 (1.8-7.7) 07/10/20 05:23 PT 13.3 Sec. (12.2-14.9) 07/08/20 10:58 INR 1.02 (0.87-1.13) 07/08/20 10:58 APTT 27.5 Sec. (24.2-36.6) 07/08/20 10:58 Thrombin Time 17.1 Sec. (15.1-19.6) 07/08/20 10:58 Sodium 140 mmol/L (137-145) 07/10/20 05:23 Potassium 3.8 mmol/L (3.6-5.0) 07/10/20 05:23 Chloride 104.2 mmol/L (98-107) 07/10/20 05:23 Carbon Dioxide 26 mmol/L (22-30) 07/10/20 05:23 Anion Gap 14 mmol/L 07/10/20 05:23 BUN 14 mg/dL (7-17) 07/10/20 05:23 Creatinine 1.1 mg/dL (0.6-1.2) 07/10/20 05:23 Estimated GFR 58 ml/min 07/10/20 05:23 BUN/Creatinine Ratio 13 % 07/10/20 05:23 Glucose 102 mg/dL (65-100) H 07/10/20 05:23 POC Glucose 158 mg/dL (70-105) H 07/18/20 20:52 Hemoglobin A1c 5.7 % (4-6) 07/09/20 05:19 Calcium 8.6 mg/dL (8.4-10.2) 07/10/20 05:23 Total Bilirubin 0.50 mg/dL (0.1-1.2) 07/10/20 05:23 AST 30 units/L (5-40) 07/10/20 05:23 ALT 11 units/L (7-56) 07/10/20 05:23 Alkaline Phosphatase 85 units/L (35-129) 07/10/20 05:23 Total Creatine Kinase 626 units/L (30-135) H 07/10/20 05:23 CK-MB (CK-2) 9.3 ng/mL (0.0-4.0) H 07/08/20 10:58 CK-MB (CK-2) Rel Index 0.6 (0-4) 07/08/20 10:58 Troponin T < 0.010 ng/mL (0.00-0.029) 07/08/20 10:58 Total Protein 6.6 g/dL (6.3-8.2) 07/10/20 05:23 Albumin 3.8 g/dL (3.9-5) L 07/10/20 05:23 Albumin/Globulin Ratio 1.4 % 07/10/20 05:23 Triglycerides 64 mg/dL (2-149) 07/09/20 05:19 Cholesterol 178 mg/dL (50-199) 07/09/20 05:19 LDL Cholesterol Direct 107 mg/dL (50-130) 07/09/20 05:19 HDL Cholesterol 58 mg/dL (40-59) 07/09/20 05:19 Cholesterol/HDL Ratio 3.06 % 07/09/20 05:19 Coronavirus (PCR) Negative (Negative) 07/16/20 Unknown Shin/IV: Voiding Method External Female Catheter Active Medications - Current Medications Current Medications: Generic Name Dose Route Start Last Admin Trade Name Freq PRN Reason Stop Dose Admin Acetaminophen 650 mg 07/08/20 22:54 07/15/20 04:30 Acetaminophen 325 Mg Tab PO 650 mg Q4H PRN Administration Pain MILD(1-3)/Fever >100.5/WHITESIDE Albuterol 2.5 mg 07/20/20 10:13 Albuterol 2.5 Mg/3 Ml Nebu IH Q4H PRN Shortness Of Breath Amlodipine Besylate 10 mg 07/10/20 14:00 07/22/20 13:11 Amlodipine 10 Mg Tab PO Not Given QDAY KRISTY Arformoterol Tartrate 15 mcg 07/09/20 08:00 07/22/20 20:27 Arformoterol 15 Mcg/2 Ml Nebu IH 15 mcg Q12HRT KRISTY Administration Aspirin 81 mg 07/11/20 10:00 07/22/20 10:00 Aspirin Ec 81 Mg Tab PO 81 mg QDAY KRISTY Administration Atorvastatin Calcium 40 mg 07/09/20 22:00 07/22/20 21:33 Atorvastatin 40 Mg Tab PO 40 mg QHS KRISTY Administration Budesonide 0.5 mg 07/09/20 08:00 07/22/20 20:27 Budesonide 0.5 Mg/2 Ml Nebu IH 0.5 mg Q12HRT KRISTY Administration Carvedilol 12.5 mg 07/08/20 23:00 07/22/20 21:33 Carvedilol 12.5 Mg Tab PO 12.5 mg BID KRISTY Administration Clopidogrel Bisulfate 75 mg 07/10/20 14:00 07/22/20 10:01 Clopidogrel 75 Mg Tab PO 75 mg QDAY KRISTY Administration Enoxaparin Sodium 40 mg 07/10/20 14:00 07/22/20 10:01 Enoxaparin 40 Mg/0.4 Ml Inj SUB-Q 40 mg QDAY KRISTY Administration Protocol Famotidine 20 mg 07/10/20 10:00 07/22/20 21:33 Famotidine 20 Mg Tab PO 20 mg BID KRISTY Administration Hydralazine HCl 10 mg 07/10/20 13:51 07/13/20 21:44 Hydralazine 20 Mg/1 Ml Inj IV 10 mg Q6H PRN Administration SBP >180 or DBP >110 Hydralazine HCl 50 mg 07/13/20 22:00 07/23/20 05:33 Hydralazine 25 Mg Tab PO 50 mg Q8HR KRISTY Administration Hydrochlorothiazide 25 mg 07/09/20 10:00 07/22/20 10:00 Hydrochlorothiazide 25 Mg Tab PO 25 mg QDAY [facility] Administration Hydromorphone HCl 0.5 mg 07/08/20 22:54 Hydromorphone 1 Mg/1 Ml Inj IV Q3H PRN Pain , Severe (7-10) Lisinopril 20 mg 07/09/20 10:00 07/22/20 13:10 Lisinopril 20 Mg Tab PO Not Given QDAY [facility] Methylprednisolone Sodium Succinate 40 mg 07/21/20 10:00 07/22/20 10:01 Methylprednisolone Sod Succinate 40 Mg/1 Ml Inj IV 40 mg Q24HR KRISTY Administration Ondansetron HCl 4 mg 07/08/20 22:54 Ondansetron 4 Mg/2 Ml Inj IV Q8H PRN Nausea And Vomiting Oxycodone/Acetaminophen 1 tab 07/08/20 22:54 Oxycodone /Acetaminophen 5-325mg Tab PO Q6H PRN Pain, Moderate (4-6) Sodium Chloride 10 ml 07/08/20 23:00 07/22/20 21:35 Sodium Chloride 0.9% 10 Ml Flush Syringe IV 10 ml BID KRISTY Administration Sodium Chloride 10 ml 07/08/20 22:54 Sodium Chloride 0.9% 10 Ml Flush Syringe IV PRN PRN LINE FLUSH Nutrition/Malnutrition Assess - Dietary Evaluation Nutrition/Malnutrition Findings: Nutrition Notes Start: 07/16/20 07:35 Freq: Status: Active Protocol: Document 07/16/20 07:36 ROXANE (Rec: 07/16/20 07:36 ROXANE [id number]) Nutrition Notes Initial or Follow up Brief Note Subjective/Other Information Screen for LOS. Pt eating 100% of meals. Nutrition Intervention Revisit per MD consult or patient Sign Off request:
[2020-07-23] MEDS: ARFORMOTEROL 15 MCG/2 ML NEBU IH SCH (09:38)
[2020-07-23] MEDS: BUDESONIDE 0.5 MG/2 ML NEBU IH SCH (09:39)
[2020-07-23] MEDS: amLODIPine 10 MG TAB PO SCH (09:51)
[2020-07-23] MEDS: LISINOPRIL 20 MG TAB PO SCH (09:53)
--- NOTE | 2020-07-23 10:09 | Discharge Summary ---
Providers - Providers Date of Admission: 07/09/20 11:41 Date of discharge: 07/23/20 Attending physician: PATRICK CORNEJO MD 07/08/20 Consult to Physician [CONS] Routine Comment: Consulting Provider: FRANCISCO ERNANDEZ Physician Instructions: Reason For Exam: Acute CVA 07/08/20 22:56 Occupational Therapy Evaluate and Treat [CONS] Routine Comment: Reason For Exam: Neuro deficits Physical Therapy Evaluation and Treat [CONS] Routine Comment: Reason For Exam: Neuro deficits 07/08/20 22:57 Speech Therapy Evaluation and Treat [CONS] Routine Reason For Exam: swallow eval 07/09/20 11:55 Consult to Physician [CONS] Routine Comment: Consulting Provider: TANESHA TORRES Physician Instructions: Reason For Exam: CVA with Left ICA stenosis Primary care physician: BATTERY CHARGER TESTER Hospitalization Reason for admission: Acute CVA, hypertension Condition: Stable Hospital course: History of present illness: 84-year-old female with past medical history of hypertension comes in for difficulty talking and right upper extremity weakness. Patient unable to tell the exact timeline. Patient states her difficulty talking is improved. Right upper extremity weakness persists.. Patient says the right lower extremity strength is normal. And patient is able to walk. No syncope. No seizures. No past cerebrovascular accidents. No TIAs in the past. No chest pain. Patient has a history of hypertension and hyperlipidemia and asthma. No fever or chills. No recent exposure to coronavirus. Patient states the symptoms were started 48 to 72 hours before. Hospital course Assessment and plan: #CVA Echocardiogram - negative bubble study. 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 Vascular surgery recommends outpatient follow up with Dr Devaughn Wyatt in [facility].. 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 Vascular recommends addition of plavix (added) Continue statins Needs placement to continue PT #HTN Continue BP medications #HLD Continue lipitor 40 mg daily #Asthma Albuterol #Morbid obesity Diet and exercise #DVT ppx - heparin #Disposition Needs skilled vs acute rehab History Interval history: 84-year-old female with past medical history of hypertension comes in for difficulty talking and right upper extremity weakness. Patient unable to tell the exact timeline. Patient states her difficulty talking is improved. Right upper extremity weakness persists.. Patient says the right lower extremity strength is normal. And patient is able to walk. No syncope. No seizures. No past cerebrovascular accidents. No TIAs in the past. No chest pain. Patient has a history of hypertension and hyperlipidemia and asthma. No fever or chills. No recent exposure to coronavirus. Patient states the symptoms were started 48 to 72 hours before. Hospital course 07/09. MRI brain shows acute stroke involving the left middle cerebral artery region. Neurology consulted. Patient is on aspirin and statins. 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 Vascular surgery is been consulted. She complains of right-sided arm weakness. Has been seen by physical therapy who recommends placement. 07/10. Saw and examined patient at bedside. Has slurred speech which seems unchanged. Has some right sided weakness as well. Vascular surgery evaluated patient. She will need to see Dr Devaughn Wyatt in [facility] after discharge. Vascular recommended addition of plavix for now. Continue aspirin and statins. She will continue PT. She needs placement. Discussed with patients daughter. 07/11. Awaiting placement. Continue aspirin and plan. Possible DC today. Awaiting insurance authorization. 07/12. Still waiting for insurance authorization. No new complaints. Getting PT 07/13. No change in neurological condition. Awaiting insurance auth. 07/14. Awaiting placement. Has no complaints. 07/15. No new complaints. Awaiting placement. 07/16. Awaiting placement. 07/17. Short summary - 84 year old F with a medical history of HTN admitted with slurred speech and difficulty talking. MRI showed acute CVA involinvg the left MCA area. Carotid imaging showed >70% stenosis of left ICA. Vascular surgery was consulted. Plavix was added. She will need to follow up with vascular surgery at discharge. She has right sided weakness and is getting PT. Her speech is slightly improved compared with admission. She is awaiting placement to a rehab/skilled nf. 07/18. Patient is to have discharged today. 07/19. No new issues overnight. Awaiting insurance authorization for placement. 07/20. No new issues overnight. Awaiting insurance authorization for placement. 07/21. No new issues overnight. Awaiting insurance authorization for placement. Continue to taper steroids for asthma exacerbation. 07/22; pending placement. 07/23/2020; no new issues overnight. Awaiting insurance authorization for placement. Patient approved by rehab facility discharged. Patient has left ICA stenosis and will follow with her vascular surgeon as an outpatient. Patient was hemodynamically stable at the time of discharge. Management plan was discussed with the patient and was in agreement with the plan of care. Disposition: [id number] SNF [facility] CERT Final Discharge Diagnosis (Prints w/discharge instructions): Acute CVA. Hypertension. Hyperlipidemia. ICA stenosis Time spent for discharge: 35-minutes - Discharge Diagnoses (1) Aphasia Status: Acute (2) CVA (cerebral vascular accident) Status: Acute Qualifiers: Laterality of affected vessel: left (3) Hyperlipidemia Status: Chronic Qualifiers: Hyperlipidemia type: mixed hyperlipidemia Qualified Code(s): E78.2 - Mixed hyperlipidemia (4) Hypertension Status: Chronic Qualifiers: Hypertension type: essential hypertension Qualified Code(s): I10 - Essential (primary) hypertension (5) Morbid obesity Status: Chronic (6) Asthma Status: Inactive Core Measure Documentation - Palliative Care Palliative Care/ Comfort Measures: Not Applicable - Core Measures Any of the following diagnoses?: stroke - Stroke Discharge Requirements Statin for LDL = or >70 mg/dl on DC: Yes Anticoag for atrial fib/atrial flutter: Not Applicable Antithrombotic for ischemic stroke: Yes Exam - Physical Exam Narrative exam: Not in cardiopulmonary distress. The patient is obese. Vital signs as documented. Head exam is unremarkable. No scleral icterus . Neck is without jugular venous distension, thyromegaly, or carotid bruits. Lungs are clear to auscultation. Cardiac exam reveals regular rate and Rhythm. Abdominal exam reveals normal bowel sounds, nontender, no organomegaly. Extremities are nonedematous and both femoral and pedal pulses are normal. 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 Right-sided hemiparesis. - Constitutional Vitals: Temp Pulse Resp BP Pulse Ox 97.5 F L 58 L 20 109/70 96 07/23/20 08:16 07/23/20 09:53 07/23/20 08:16 07/23/20 09:53 07/23/20 09:43 Plan Activity: advance as tolerated Weight Bearing Status: Weight Bear as Tolerated Diet: low cholesterol, low salt Follow up with: CARMELLA ARGUETA MD [Primary Care Provider] - 7 Days TANESHA TORRES MD [Staff Physician] - 7 Days FRANCISCO ERNANDEZ MD [Staff Physician] - 7 Days Prescriptions: AtorvaSTATin [Lipitor] 40 mg PO QHS #30 tablet carvediloL [Coreg] 12.5 mg PO BID #60 predniSONE [Deltasone] 40 mg PO QDAY #10 tab Fluticasone Propionate [Flovent Diskus] 50 mcg IH QDAY #1 inh Aspirin EC [Halfprin EC] 81 mg PO QDAY #30 tablet Clopidogrel [Plavix] 75 mg PO QDAY #30 tablet Lisinopril/Hydrochlorothiazide [Zestoretic 20-25 mg] 1 tab PO QDAY #30
[2020-07-23] MEDS: CLOPIDOGREL 75 MG TAB PO SCH (10:11)
[2020-07-23] MEDS: FAMOTIDINE 20 MG TAB PO SCH (10:12)
[2020-07-23] MEDS: ASPIRIN EC 81 MG TAB PO SCH (10:12)
[2020-07-23] MEDS: ENOXAPARIN 40 MG/0.4 ML INJ SUB-Q SCH (10:12)
[2020-07-23] MEDS: methylPREDNISolone Sod Succinate 40 MG/1 ML INJ IV SCH (10:12)
[2020-07-23] MEDS: hydroCHLOROthiazide 25 MG TAB PO SCH (10:18)
[2020-07-23] MEDS: carvediloL 12.5 MG TAB PO SCH (10:18)
[2020-07-23 16:39] VITALS: BP 141/100
== END 2020-07-23 12:47 | DRG 65 ==
LOC: ED 10:37 → 4A 15:02 → OBSVTOIN 07-09 11:41
PROVIDERS: ADMIT Internal Medicine; ATTEND Internal Medicine
DX: I63.9 Cerebral infarction, unspecified (principal); M62.82 Rhabdomyolysis; R47.01 Aphasia; E66.01 Morbid (severe) obesity due to excess calories; R29.708 NIHSS score 8; I10 Essential (primary) hypertension; E78.5 Hyperlipidemia, unspecified; J45.909 Unspecified asthma, uncomplicated; I65.22 Occlusion and stenosis of left carotid artery; Z20.822 Contact with and (suspected) exposure to COVID-19; Z68.38 Body mass index [BMI] 38.0-38.9, adult; Z79.899 Other long term (current) drug therapy; Z79.891 Long term (current) use of opiate analgesic; Z79.01 Long term (current) use of anticoagulants
CPT/HCPCS: 36415; 70450; 70496; 70498; 70551; 80053; 80061; 82550; 82553; 82962; 83036; 84484; 85025; 85610; 85670; 85730; 93005; 93306; 93880; 94640; 96360; G0378; A9270-GY; J0360; J1650; J2920; J7030; Q9967; U0003